=== PATIENT | female | born 1950 | race Caucasian/White ===

== ENCOUNTER → 2019-09-02 14:05 | Outpatient (CLI) | payer MEDICARE, MEDICAID, SELFPAY ==
--- NOTE | 2019-09-02 | DI.RAD.S_ITS ---
PROCEDURE: XR SHOULDER RT MIN 2V INDICATIONS: Unspecified injury of head, initial encounter TECHNIQUE: 3 views of the shoulder were acquired. COMPARISON: None. FINDINGS: Bones: No fractures or dislocations. No suspicious bony lesions. Visualized ribs appear intact. Soft tissues: No suspicious soft tissue calcifications. IMPRESSION: Mild to moderate osteoarthritis of the a.c. joint. Dictated by: Christiano Beltre M.D. on 09/02/2019 at 15:44 Approved by: Christiano Beltre M.D. on 09/02/2019 at 15:44
--- NOTE | 2019-09-02 | DI.RAD.S_ITS ---
PROCEDURE: XR FOREARM RT 2V INDICATIONS: Unspecified injury of head, initial encounter TECHNIQUE: 2 views of the forearm were acquired. COMPARISON: CR, XR HAND 3VW LT, 09/15/2016, 13:16. FINDINGS: Bones: No fractures or dislocations. No suspicious bony lesions. Severe triscaphe for CMC joint degeneration. Old ulnar styloid tip fracture versus a bony ossicle. Soft tissues: No suspicious soft tissue calcifications or masses. IMPRESSION: Osteoarthritic changes involving the triscaphe and first CMC joint; otherwise normal appearance of the left forearm. Dictated by: Arsalan PELAEZ Interpreted: Lauren Yung MD on 09/02/2019 at 15:05 Approved by: Lauren Yung M.D. on 09/02/2019 at 16:21
--- NOTE | 2019-09-02 | DI.RAD.S_ITS ---
PROCEDURE: XR CERVICAL SPINE 4V OR 5V INDICATIONS: Unspecified injury of head, initial encounter TECHNIQUE: 6 views of the cervical spine were acquired. COMPARISON: [facility], CR, CLAVICLE RIGHT 2 VIEWS, 03/21/2013, 16:02. [facility], CR, XR CERVICAL SPIN LAT FL EX 3VW, 04/15/2017, 14:34. FINDINGS: Bones: No fractures or dislocations to the T1 level. No suspicious bony lesions. ACDF at C4-C5 with interbody cage graft. There is mild to moderate diffuse cervical disc generation from C3-C4, and C5-C6, C6-C7 and C7-T1. Minimal grade 1 anterolisthesis of C7 on T1. Grade 1 retrolisthesis C3-C4. There is diffuse facet joint arthropathy. Soft tissues: Prevertebral soft tissues are normal in thickness. IMPRESSION: 1. Stable postsurgical and multilevel degenerative change which appears similar to prior exam dated 04/15/17. Dictated by: Arsalan Andujar [facility] Interpreted: Lauren Yung MD on 09/02/2019 at 16:00 Approved by: Lauren Yung M.D. on 09/02/2019 at 16:21
--- NOTE | 2019-09-02 | DI.RAD.S_ITS ---
PROCEDURE: XR FOREARM RT 2V INDICATIONS: Unspecified injury of head, initial encounter TECHNIQUE: 2 views of the forearm were acquired. COMPARISON: [facility], CR, XR WRIST 3VW RT, 09/15/2016, 13:09. [facility], CR, XR FOREARM LT 2V, 09/02/2019, 14:16. FINDINGS: Bones: Postsurgical changes redemonstrated status post screw plate fixation involving the 3rd metacarpal, carpus, and radius. The surgical hardware appears intact without new suspicious associated lucencies. No definite change in alignment. There is deformity of the carpus redemonstrated with fusion of the carpal bones which are not well visualized on the current study. Forearm otherwise appears intact. Soft tissues: No suspicious soft tissue calcifications. Impression: Stable postsurgical sequelae and bony alignment. Dictated by: Arsalan PELAEZ Interpreted: Lauren Yung MD on 09/02/2019 at 15:01 Approved by: Lauren Yung M.D. on 09/02/2019 at 16:21
--- NOTE | 2019-09-02 | DI.RAD.S_ITS ---
PROCEDURE: XR LUMBAR SPINE 2-3V INDICATIONS: Unspecified injury of head, initial encounter TECHNIQUE: 3 views of the lumbar spine were acquired. COMPARISON: [facility], , L-SPINE MINIMUM 4 VIEWS, 07/20/2013, 15:12. [facility], , L-SPINE 2-3 VIEWS, 05/10/2010, 15:05. FINDINGS: Bones: 5 [id number] vertebrae are present. There is abnormal scoliotic bony alignment with prominent convex leftward scoliosis centered at the upper LS spine and degenerative disc disease and facet osteoarthritis that is moderately severe over the thoracolumbar junction and entirety of the lumbosacral spine. This has been previously present, and associated with grade 1-2 anterolisthesis of L5 on S1, also currently seen and slightly worsened. Additionally, a chronic wedge type compression fracture involving T12 has been present, also mildly worsened from the comparison lateral view plain film imaging 07/20/13.. No vertebral body compression fractures. No suspicious bony lesions. Soft tissues: Overlying bowel gas pattern is normal. No suspicious soft tissue calcifications. IMPRESSION: There has been a mild degree of interval worsening of moderately severe to severe degenerative changes along the thoracolumbar junction and lumbosacral spine, best seen as increased Grade I-grade 2 anterolisthesis of L5 on S1 and interval worsening of degenerative changes bordering the chronic compression fracture previously present at T12. Multilevel spinal and foraminal stenosis likely was present in this patient with severe convex leftward scoliosis. Dictated by: Christiano Beltre M.D. on 09/02/2019 at 15:44 Approved by: Christiano Beltre M.D. on 09/02/2019 at 15:48
--- NOTE | 2019-09-02 | DI.CT.S_ITS ---
PROCEDURE: CT HEAD/BRAIN WO CON INDICATIONS: Unspecified injury of head, initial encounter TECHNIQUE: Noncontrast 4.5 mm thick angled axial sections acquired from the foramen magnum to the vertex, with coronal and sagittal reformats. For radiation dose reduction, the following was used: automated exposure control, adjustment of mA and/or kV according to patient size. COMPARISON: None. FINDINGS: Image quality: Excellent. CSF spaces: Basal cisterns are patent. No extra-axial fluid collections. The ventricles are symmetric in size and shape. Brain: No intracranial bleeds or masses. There is cerebral volume loss for age, with resultant ventricular and sulcal prominence. There are periventricular and deep white matter chronic small vessel ischemic changes. There is intracranial internal carotid artery atherosclerosis. Skull and face: Calvarium and visualized facial bones appear intact, without suspicious lesions. Sinuses: Visualized sinuses and mastoids are clear. IMPRESSION: No acute intracranial abnormality. Dictated by: Lauren Yung M.D. on 09/02/2019 at 14:47 Approved by: Lauren Yung M.D. on 09/02/2019 at 14:48
== END ==
PROVIDERS: PCP Internal Medicine; Visit Provider Internal Medicine
DX: S09.90XA Unspecified injury of head, initial encounter (principal); M79.601 Pain in right arm; M18.11 Unilateral primary osteoarthritis of first carpometacarpal joint, right hand; M19.031 Primary osteoarthritis, right wrist; M79.602 Pain in left arm; M25.511 Pain in right shoulder; M19.011 Primary osteoarthritis, right shoulder; M54.2 Cervicalgia; M47.812 Spondylosis without myelopathy or radiculopathy, cervical region; M54.5 Low back pain; M47.815 Spondylosis without myelopathy or radiculopathy, thoracolumbar region; M47.817 Spondylosis without myelopathy or radiculopathy, lumbosacral region; M54.6 Pain in thoracic spine; M26.611 Adhesions and ankylosis of right temporomandibular joint; X58.XXXA Exposure to other specified factors, initial encounter; M43.17 Spondylolisthesis, lumbosacral region; M41.86 Other forms of scoliosis, lumbar region; M48.54XS Collapsed vertebra, not elsewhere classified, thoracic region, sequela of fracture; M48.00 Spinal stenosis, site unspecified; Z98.1 Arthrodesis status
CPT/HCPCS: 70450; 72050; 72100; 73030; 73090

== ENCOUNTER → 2019-09-14 17:29 | Outpatient (CLI) | payer MEDICARE, MEDICAID, SELFPAY | PROVIDERS: Family Provider Internal Medicine; PCP Internal Medicine; Visit Provider Internal Medicine | DX: M25.511 Pain in right shoulder (principal); M48.02 Spinal stenosis, cervical region ==

== ENCOUNTER → 2019-09-15 20:11 | Outpatient (CLI) | payer MEDICARE, MEDICAID, SELFPAY ==
--- NOTE | 2019-09-15 | DI.MRI.S_ITS ---
PROCEDURE: MR CERVICAL SPINE WO CON INDICATIONS: SPINAL STENOSIS, CERVICAL REGION, CERVICALGIA TECHNIQUE: Noncontrast sagittal T1 spin echo and T2 fast spin echo, sagittal STIR, foraminal oblique sagittal T2 fast spin echo, and axial gradient echo or T2 fast spin echo through the cervical spine. COMPARISON: [facility], MR, MR CERVICAL SPINE WO CON, 04/03/2017, 15:20. [facility], MR, C-SPINE WITHOUT CONTRAST, 12/13/2012, 12:22. FINDINGS: Image quality: Excellent. Alignment and Curvature: ACDF at C4-C5 is again noted. Again noted is degenerative anterolisthesis of C7 on T1, measuring 4 mm. There is trace degenerative retrolisthesis of C5 on C6. There is trace degenerative retrolisthesis of C3 on C4. Mild degenerative anterolisthesis of C2 on C3 measures approximately 3 mm. Bone Marrow: Marrow demonstrates normal overall signal. Spinal Cord: Visualized spinal cord has normal size and signal. No cerebellar tonsillar herniation. Paraspinous Soft Tissues: No paravertebral masses. Prevertebral soft tissues are normal in thickness. C2-C3: No canal stenosis. Mild to moderate bilateral foraminal stenosis. C3-C4: No canal stenosis. Bilateral uncovertebral joint hypertrophy and facet hypertrophy. Moderate to severe right foraminal narrowing and moderate left foraminal narrowing with flattening deformity on the bilateral C4 nerve roots. C4-C5: No canal stenosis. Moderate bilateral foraminal stenosis. C5-C6: Posterior osteophyte. Mild canal stenosis. Bilateral uncovertebral joint hypertrophy and facet hypertrophy. Moderate to severe bilateral foraminal narrowing with flattening deformity on the bilateral C6 nerve roots. C6-C7: Posterior disc plus osteophyte. Mild canal stenosis. Moderate to severe right foraminal narrowing and severe left foraminal narrowing with flattening deformity on the bilateral C7 nerve roots. C7-T1: Mild degenerative anterolisthesis of C7 on T1. No canal stenosis. Moderate bilateral foraminal narrowing with flattening deformity on the bilateral C8 nerve roots. IMPRESSION: 1. Remote ACDF at C4-C5. 2. Mild canal stenosis at C5-C6 and C6-C7. 3. Multilevel uncovertebral joint hypertrophy and facet hypertrophy. 4. Multilevel foraminal narrowing as described above. Dictated by: Jaison Christian M.D. on 09/16/2019 at 14:32 Approved by: Jaison Christian M.D. on 09/16/2019 at 14:46
--- NOTE | 2019-09-15 | DI.MRI.S_ITS ---
PROCEDURE: MR SHOULDER RT WO CON INDICATIONS: pain in right shoulder, TECHNIQUE: Noncontrast oblique coronal T2 fast spin echo with fat saturation, oblique sagittal T1 spin echo and T2 fast spin echo with fat saturation, axial T1 spin echo and T2 fast spin echo with fat saturation through the shoulder. COMPARISON: [facility], CR, XR SHOULDER RT MIN 2V, 09/02/2019, 14:16. FINDINGS: Image quality: Excellent. Rotator cuff: There is tendinosis and moderate grade articular and bursal surface partial-thickness tear involving distal supraspinatus and infraspinatus at their insertion on the humeral head extending to musculotendinous junction. The distal subscapularis tendinosis and moderate intrasubstance partial-thickness tear is also seen. Sagittal images demonstrate moderate supraspinatus muscle atrophy. Bones and bursae: No bone marrow contusions or fractures. Moderate acromioclavicular joint or glenohumeral joint osteoarthritic changes are seen. Small amount of joint fluid and subacromial subdeltoid bursal fluid is seen, no gross loose body. Capsule and soft tissues: In the absence of intra-articular contrast, there is suggestion of superior labral tear extending from 11 to 1:00 position. There is also anterior inferior labral tear extending from 5 to 6:00 position. The glenohumeral ligaments appear intact. Tendinosis and low to moderate grade partial-thickness tear involving proximal intra-articular portion of long head of biceps tendon is seen. The rotator interval appears normal, without fibrosis. The coracohumeral ligament is normal in thickness. IMPRESSION: 1. Tendinosis and moderate grade articular and bursal surface partial-thickness tear involving distal supraspinatus and infraspinatus at their insertion on humeral head extending to musculotendinous junction. Distal subscapularis tendinosis and moderate grade intrasubstance partial-thickness tear. Moderate supraspinatus muscle atrophy. 2. Moderate acromioclavicular joint and glenohumeral joint osteoarthritis. 3. Suggestion of superior labral tear at the 11 to 1:00 position an anterior inferior labral tear 5 to 6:00 position. Tendinosis and low to moderate grade partial-thickness tear involving proximal intra-articular portion of long head biceps tendon. Dictated by: Buster Grider M.D. on 09/16/2019 at 11:35 Approved by: Buster Grider M.D. on 09/16/2019 at 11:57
== END ==
PROVIDERS: Family Provider Internal Medicine; PCP Internal Medicine; Visit Provider Internal Medicine
DX: M25.511 Pain in right shoulder (principal); M75.111 Incomplete rotator cuff tear or rupture of right shoulder, not specified as traumatic; M19.011 Primary osteoarthritis, right shoulder; M48.02 Spinal stenosis, cervical region; M54.2 Cervicalgia; Z98.1 Arthrodesis status
CPT/HCPCS: 72141; 73221

== ENCOUNTER → 2020-02-24 14:45 | Outpatient (CLI) | payer MEDICARE, MEDICAID, SELFPAY ==
--- NOTE | 2020-02-24 14:57 | DI.MRI.S_ITS ---
PROCEDURE: MR LUMBAR SPINE WO CON INDICATIONS: LOW BACK AND BILATERAL HIP PAIN TECHNIQUE: Noncontrast sagittal T1 spin echo and T2 fast echo, sagittal STIR, axial T1 and T2 fast spin echo through the lumbar spine. In cases with scoliosis, additional coronal T2 fast spin echo may be performed. COMPARISON: [facility], CR, XR LUMBAR SPINE 2-3V, 02/24/2020, 16:14. MR, MR LUMBAR SPINE WO CON, 12/16/2016, 13:29. FINDINGS: Image quality: Degraded by patient motion artifact there Alignment and Curvature: There is mild L1-L2 and L2-L3 retrolisthesis. There is mild L5-S1 anterolisthesis. There is approximately 42? of convex left lumbar spine scoliosis. Bone Marrow: Negative for changes noted adjacent the T12-L1 and L1-L2 discs.. No acute vertebral body compression fractures. Spinal Cord: Conus medullaris terminates at the L2 level. Visualized cord demonstrates normal signal and size. Paraspinous Soft Tissues: No paravertebral masses. T12-L1: Loss of the signal and height. Mild, diffuse disc bulge. Mild bilateral facet hypertrophy. Mild narrowing of the central canal. Mild bilateral neural foraminal narrowing. No neural compression. L1-L2: Loss of disc signal and height. Mild, diffuse disc bulge. Mild bilateral facet hypertrophy. Mild narrowing of the central canal. Mild bilateral neural foraminal narrowing. No neural compression. L2-L3: Loss of disc signal. Mild, diffuse disc bulge. Mild bilateral facet hypertrophy. Moderate ligamentum flavum hypertrophy. No central stenosis. Moderate right and mild left neural foraminal narrowing. No neural compression. L3-L4: Loss of the signal. Minimal, diffuse disc bulge. Mild to moderate bilateral facet hypertrophy. No central stenosis. No neural foraminal narrowing. No neural compression. L4-L5: Loss of the signal. Mild, diffuse disc bulge. Moderate bilateral facet hypertrophy. Mild narrowing of the central canal. Mild left neural foraminal narrowing. No neural compression. L5-S1: Loss of disc signal. Minimal, diffuse disc bulge. Severe bilateral facet hypertrophy. Mild narrowing of the central canal. Mild bilateral neural foraminal narrowing. No neural compression. 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 IMPRESSION: 1. Severe convex left scoliosis. 2. L1-L2, L2-L3 and L5-S1 grade 1 degenerative spondylolisthesis. 3. Multilevel degenerative disc disease. 4. Multilevel facet arthropathy. 5. No significant central canal narrowing. 6. No significant neural foraminal narrowing. 7. No neural compression. Dictated by: Jeanine Pedersen MD, PhD on 02/24/2020 at 17:48 Approved by: Jeanine Pedersen MD, PhD on 02/24/2020 at 17:54
--- NOTE | 2020-02-24 14:57 | DI.MRI.S_ITS ---
PROCEDURE: MR CERVICAL SPINE WO CON INDICATIONS: NECK PAIN. CERVICAL SPONDYLOSIS,SCOLIOSIS TECHNIQUE: Noncontrast sagittal T1 spin echo and T2 fast spin echo, sagittal STIR, foraminal oblique sagittal T2 fast spin echo, and axial gradient echo or T2 fast spin echo through the cervical spine. COMPARISON: , MR, MR CERVICAL SPINE WO CON, 04/03/2017, 15:20. [facility], CR, XR CERVICAL SPINE 4V OR 5V, 09/02/2019, 14:16. [facility], CR, XR CERVICAL SPINE 2V OR 3V, 02/24/2020, 16:14. FINDINGS: Image quality: Excellent. Alignment and Curvature: There is there is mild, approximately 3 mm of C7-T1 degenerative anterolisthesis. There is trace, approximately 1-2 mm of C3-C4 degenerative retrolisthesis. Bones: Postsurgical changes compatible C4-C5 ACDF. Mild reactive endplate changes noted at the C3-C4, C5-C6, C6-C7 and C7-T1 disc. Spinal Cord: Visualized spinal cord has normal size and signal. No cerebellar tonsillar herniation. Paraspinous Soft Tissues: No paravertebral masses. Prevertebral soft tissues are normal in thickness. C2-C3: Loss of disc signal. Minimal, diffuse disc bulge. No central stenosis. No neural foraminal narrowing. No neural compression C3-C4: Loss of disc signal and height. Mild, diffuse disc bulge. Mild bilateral facet hypertrophy. No central stenosis. Moderate bilateral neural foraminal narrowing. No neural compression. C4-C5: Status post fusion. No central stenosis. Mild left facet hypertrophy. Moderate left neural foraminal narrowing. No neural compression. C5-C6: Loss of disc signal and height. Mild, diffuse disc bulge. Mild narrowing of the central canal. Mild bilateral facet hypertrophy. Moderate right and severe left neural foraminal narrowing with compression of the exiting left C6 nerve root. C6-C7: Loss of disc signal and height. Mild, diffuse disc bulge. Mild central canal. Mild left facet hypertrophy. Mild left neural foraminal narrowing. No neural compression. C7-T1: Loss of disc signal and height. Minimal, diffuse disc bulge. Moderate bilateral facet hypertrophy. No central stenosis. Mild bilateral neural foraminal narrowing. No neural compression. IMPRESSION: 1. Status post C4-C5 ACDF. 2. Multilevel degenerative disease 3. Multilevel facet arthropathy. 4. No significant central canal narrowing identified. Severe left C5-C6 neural foraminal narrowing with compression left C6 nerve root. Dictated by: Jeanine Pedersen MD, PhD on 02/24/2020 at 17:16 Approved by: Jeanine Pedersen MD, PhD on 02/24/2020 at 17:31
--- NOTE | 2020-02-24 14:59 | DI.RAD.S_ITS ---
PROCEDURE: XR CERVICAL SPINE 2V OR 3V INDICATIONS: NECK PAIN, BACK PAIN, CERVICAL SPONDYLOSIS,SCOLIOSIS TECHNIQUE: 2 view(s) of the cervical spine were acquired. COMPARISON: [facility], CR, XR CERVICAL SPINE 4V OR 5V, 09/02/2019, 14:16. [facility], CR, CLAVICLE RIGHT 2 VIEWS, 03/21/2013, 16:02. FINDINGS: Bones: No fractures or dislocations to the T1 level. The lateral masses of C1 appear intact. No suspicious bony lesions. Note is made of prior C4-C5 anterior fusion plate with no evidence of device loosening or disruption. Previously present facet osteoarthritis and degenerative disc disease has not appreciably worsened from 09/02/19 and there is grade 1 anterolisthesis of C7 on T1. This was previously present. Soft tissues: No soft tissue abnormality seen. IMPRESSION: The degenerative disc disease and facet osteoarthritis along the cervical and cervical thoracic junction allows slight degrees of ligamentous laxity that is best seen at C7-T1. At this level grade 1 anterolisthesis is present but stable on both flexion and extension imaging when compared to the prior study from August of last year. Prior anterior fusion plating C4-C5 without operative complication. Dictated by: Christiano Beltre M.D. on 02/24/2020 at 17:23 Approved by: Christiano Beltre M.D. on 02/24/2020 at 17:26
--- NOTE | 2020-02-24 14:59 | DI.RAD.S_ITS ---
PROCEDURE: XR THORACIC SPINE 2V INDICATIONS: NECK PAIN, BACK PAIN, CERVICAL SPONDYLOSIS,SCOLIOSIS TECHNIQUE: 2 views of the thoracic spine were acquired. COMPARISON: [facility], THORACIC SPINE 3 VIEWS, 08/13/2015, 16:21. [facility], THORACIC SPINE MINIMUM 4 VIEWS, 07/20/2013, 15:12. FINDINGS: Bones: 12 vertebral segments are present. Mild degenerative disc disease is noted along the thoracic spine to the T12 level where a significant compression fracture involving the anterior, middle and posterior thirds of the vertebral body is present. The quality of visualization is somewhat limited due to osteopenia, and this has been previously present in 2012 and 2014 but appears to have mildly worsened both at T12 and L1 Soft tissues: No paravertebral stripe thickening. IMPRESSION: Worsening osteoporotic compression fractures at T12 and L1, but poorly visualized due to osteopenia, reactive sclerosis and overlap of degenerative disc disease. CT scanning would be very helpful in more accurately assessing this area if clinically warranted. No subluxation is seen on the flexion and extension views. Dictated by: Christiano Beltre M.D. on 02/24/2020 at 17:32 Approved by: Christiano Beltre M.D. on 02/24/2020 at 17:37 :
--- NOTE | 2020-02-24 14:59 | DI.RAD.S_ITS ---
PROCEDURE: XR LUMBAR SPINE 2-3V INDICATIONS: NECK PAIN, BACK PAIN, CERVICAL SPONDYLOSIS,SCOLIOSIS TECHNIQUE: 2 views of the lumbar spine were acquired. COMPARISON: [facility], , XR LUMBAR SPINE 2-3V, 09/02/2019, 14:16. [facility], , L-SPINE MINIMUM 4 VIEWS, 07/20/2013, 15:12. FINDINGS: Bones: 5 [id number] vertebrae are present. There is mildly abnormal bony alignment with grade 1 anterolisthesis of L5 on S1 that appears stable despite flexion and extension of the patient over the course of the examination to acquire the 2 lateral images. This was previously present also on plain film imaging from 09/02/19 and 07/20/13. This appears secondary to ligamentous laxity from chronic disc height reduction and facet osteoarthritis from L3 inferiorly. It is most prominent at the facet joints, at L4-5 and L5-S1. No vertebral body compression fractures. No suspicious bony lesions. Soft tissues: Overlying bowel gas pattern is normal. No suspicious soft tissue calcifications. IMPRESSION: No trauma found. Fixed anterolisthesis grade 1 of L5 on S1 is present and has been previously present on prior plain film imaging from 2012 and 2018. A definite compression fracture is not identified from L2 inferiorly but quality of visualization of T12 and L1 reduces quality of this embolization of possible old compression fracture in that area. Degenerative disc disease is prominent at that level, with reactive sclerosis, and prior mild anterior wedging has been present in that area on the 2012 and 2018 studies. The anterior wedging and vertebral height reduction likely has worsened at T12, in my opinion. Dictated by: Christiano Beltre M.D. on 02/24/2020 at 17:26 Approved by: Christiano Beltre M.D. on 02/24/2020 at 17:32
== END ==
PROVIDERS: Family Provider Internal Medicine; PCP Internal Medicine; Referring Provider Neurological Surgery; Visit Provider Neurological Surgery
DX: M50.31 Other cervical disc degeneration, high cervical region (principal); M48.02 Spinal stenosis, cervical region; M47.812 Spondylosis without myelopathy or radiculopathy, cervical region; M51.16 Intervertebral disc disorders with radiculopathy, lumbar region; M47.26 Other spondylosis with radiculopathy, lumbar region; M47.27 Other spondylosis with radiculopathy, lumbosacral region; M51.34 Other intervertebral disc degeneration, thoracic region; M80.88XS Other osteoporosis with current pathological fracture, vertebra(e), sequela; M25.552 Pain in left hip; M25.551 Pain in right hip; M41.86 Other forms of scoliosis, lumbar region; Z98.1 Arthrodesis status
CPT/HCPCS: 72040; 72072; 72100; 72141; 72148

== ENCOUNTER → 2020-04-18 14:38 | Outpatient (CLI) | payer MEDICARE, MEDICAID, SELFPAY ==
[2020-04-18 15:57] LABS: Add Manual Diff / Slide Review NO; Basophils Absolute Auto 0 /uL (0-100); Basophils Percent Auto 1.1 % (0-2); Eosinophils Absolute Auto 100 /uL (0-450); Eosinophils Percent Auto 2.4 % (2-4); Hematocrit 33.7 % (36-46); Hemoglobin 11.5 g/dL (12.0-16.0); Lymphocytes Absolute Auto 1000 /uL (1100-4500); Lymphocytes Percent Auto 22.8 % (25-40); Mean Corpuscular Hemoglobin 32.2 PG (26-34); Mean Corpuscular Volume 94.7 fL (80-100); Monocytes Absolute Auto 400 /uL (0-900); Monocytes Percent Auto 8.5 % (3-14); Neutrophils Absolute Auto 2800 /uL (1500-7000); Neutrophils Percent Auto 65.2 % (50-75); Platelet Count 173 X10^3/uL (150-400); Red Blood Cell Count 3.56 X10^6/uL (4.0-5.2); Red Cell Distribution Width 13.3 % (11.6-14.8); White Blood Cell Count 4.3 X10^3/uL (4.5-11.0)
[2020-04-18 16:50] LABS: Alanine Aminotransferase 22 IU/L (<35); Albumin 3.9 g/dL (3.5-5.0); Albumin Globulin Ratio 1.5 (1.0-2.8); Alkaline Phosphatase 215 U/L (38-126); Aspartate Aminotransferase 35 IU/L (14-36); BUN Creatinine Ratio 32.7 (6-22); Bilirubin Total 0.3 mg/dL (0.2-1.3); Blood Urea Nitrogen 18 mg/dL (7-17); Calcium 9.6 mg/dL (8.4-10.2); Carbon Dioxide 26 mmol/L (22-32); Chloride 102 mmol/L (98-107); Cholesterol 141 mg/dL (140-199); Estimated Glomerular Filt Rate > 60.0 mL/min (>60); Globulin 2.6 g/dL (1.7-4.1); Glucose 109 mg/dL (80-110); HDL Cholesterol 54 mg/dL (40-60); HEMOLYSIS < 15 (0-50); LDL Cholesterol Calculated 64 mg/dL (<100); Potassium 4.1 mmol/L (3.4-5.1); Sodium 136 mmol/L (137-145); Total Protein 6.5 g/dL (6.3-8.2); Triglycerides 117 mg/dL (35-150)
[2020-04-18 16:56] LABS: NT-proBNP (BNP-Adult 18+) 139 pg/mL (<125)
[2020-04-18 17:17] LABS: TSH w/ Reflex to FT4 1.51 uIU/mL (0.47-4.68)
== END ==
PROVIDERS: Family Provider Internal Medicine; PCP Internal Medicine; Referring Provider Physician Assistant; Visit Provider Physician Assistant
DX: R00.2 Palpitations (principal); E03.9 Hypothyroidism, unspecified; E78.2 Mixed hyperlipidemia; I10 Essential (primary) hypertension
CPT/HCPCS: 36415; 80053; 80061; 83735; 83880; 84443; 85025

== ENCOUNTER → 2020-04-20 14:04 | Outpatient (CLI) | payer MEDICARE, MEDICAID, SELFPAY ==
--- NOTE | 2020-04-20 | DI.ECHO.S_ITS ---
[facility]---------+ [facility] +---------+ : : [address] : [address] : : : : [id number] : : : : Phone: [phone]---------+ Echocardiogram Report + + :Name: ALY NICHOLS Study Date: 04/20/2020 Height: 60 in : :[facility] Weight: 130 lb : : Gender: Female BSA: 1.6 m2 : :: 1950 Age: 69 yrs BP: 140/70 mmHg: :Reason For Study: PALPITATIONS : : Performed By: Tl Kaur : :Referring: MARI RAI : + + Interpretation Summary 1) Normal left ventricular thickness, size, wall motion, and systolic function (EF 60-65%). 2) Normal right ventricular size and function. 3) There is mild to moderate aortic regurgitation. 4) Compared to the Echo done `5, no significant change. Procedure: A two-dimensional transthoracic echocardiogram with color flow and Doppler was performed. The study quality was technically good. Comparison is made with the echocardiogram of 04/12/15. The patient was in normal sinus rhythm during the exam. The patient had occasional PACs during the exam. Left Ventricle: The left ventricle is normal in size. There is normal left ventricular wall thickness. The ejection fraction is estimated to be 60-65%. There are no focal wall motion abnormalities. Right Ventricle: The right ventricle is normal in size and function. Atria: The left atrium is moderately dilated. The right atrium is mildly dilated. The interatrial septum is intact with no evidence for an atrial septal defect. Mitral Valve: The mitral valve is normal in structure and function. The mitral valve leaflets are slightly calcified. There is trace mitral regurgitation. Aortic Valve: The aortic valve is trileaflet. The aortic valve is slightly calcified. The aortic valve opens well. There is no aortic valve stenosis. There is mild to moderate aortic regurgitation. Tricuspid Valve: The tricuspid valve is normal in structure and function. There is trace tricuspid regurgitation. The right ventricular systolic pressure is estimated to be at least 25 mmHg based on an estimated right atrial pressure of 3 mm Hg. Pulmonic Valve: The pulmonic valve is normal in structure and function. There is trace pulmonic regurgitation. Great Vessels: The aortic root is normal size. The dimensions of the ascending aorta are normal. The pulmonary artery is normal size. The IVC is of normal diameter and collapses greater than 50% with a sniff. This suggests a low right atrial pressure of 3 mm Hg. Pericardium/ Pleura There is no pericardial effusion. There is no pleural effusion. MMode/2D Measurements & Calculations LVIDd: 5.2 cm LVOT diam: 2.0 cm LVIDs: 3.1 cm Ao root diam: 2.8 cm FS: 41.7 % asc Aorta Diam: 3.4 cm EPSS: 0.58 cm Ao Arch Diam (Prox Trans): 2.9 cm IVSd: 0.78 cm LVPWd: 0.82 cm LV cortés. diameter/BSA (cm/m^2): 3.4 LV sys. diameter/BSA (cm/m^2): 2.0 LA dimension: 3.9 cm RA long axis: 5.0 cm LA A2 area: 20.6 cm2 RA area: 17.9 cm2 LA A4 area: 23.4 cm2 RA vol: 54.6 ml LA length (vol): 6.0 cm RA : 35.1 ml/m2 LA vol: 67.5 ml IVC diam: 1.6 cm LA vol index: 43.4 ml/m2 Doppler Measurements & Calculations Ao V2 max: 202.8 cm/sec LVOT Max Sina: 115.6 cm/sec Ao V2 mean: 149.1 cm/sec LV V1 max P.3 mmHg Ao max P.5 mmHg LV V1 VTI: 28.5 cm Ao mean P.6 mmHg KODI(I,D): 2.0 cm2 Ao V2 VTI: 46.8 cm KODI(V,D): 1.8 cm2 sev ratio: 0.61 KODI indexed to BSA (cm^2/m^2): 1.3 AI P1/2t: 672.4 msec AI dec slope: 195.7 cm/sec2 MV E max sina: 118.5 cm/sec TR max sina: 233.4 cm/sec MV A max sina: 59.8 cm/sec TR max P.8 mmHg MV E/A: 2.0 PA V2 max: 84.6 cm/sec Med Peak E' Sina: 3.9 cm/sec PA V2 mean: 63.1 cm/sec E/E' med: 30.4 PA mean P.7 mmHg Lat Peak E' Sina: 8.1 cm/sec PA pr(Accel): 19.1 mmHg E/E' lat: 14.6 E/e' average: 22.5 MV dec time: 0.21 sec ENRRIQUE): 91.7 ml Reading Physician:04:08 PM
== END ==
PROVIDERS: Family Provider Internal Medicine; PCP Internal Medicine; Referring Provider Physician Assistant; Visit Provider Physician Assistant
DX: I35.1 Nonrheumatic aortic (valve) insufficiency (principal); R00.2 Palpitations; I10 Essential (primary) hypertension
CPT/HCPCS: 93306

== ENCOUNTER → 2020-04-23 15:48 | Outpatient (CLI) | payer MEDICARE, MEDICAID, SELFPAY ==
[2020-04-23 16:06] LABS: Add Manual Diff / Slide Review NO; Basophils Absolute Auto 0 /uL (0-100); Eosinophils Absolute Auto 100 /uL (0-450); Eosinophils Percent Auto 3.4 % (2-4); Hemoglobin 11.7 g/dL (12.0-16.0); Lymphocytes Absolute Auto 1100 /uL (1100-4500); Lymphocytes Percent Auto 26.7 % (25-40); Mean Corpuscular HGB Conc 33.4 % (30-36); Mean Corpuscular Hemoglobin 31.6 PG (26-34); Mean Corpuscular Volume 94.7 fL (80-100); Monocytes Absolute Auto 300 /uL (0-900); Monocytes Percent Auto 7.8 % (3-14); Neutrophils Absolute Auto 2400 /uL (1500-7000); Neutrophils Percent Auto 61.1 % (50-75); Platelet Count 180 X10^3/uL (150-400); Red Blood Cell Count 3.69 X10^6/uL (4.0-5.2); Red Cell Distribution Width 13.5 % (11.6-14.8)
[2020-04-23 16:33] LABS: Alanine Aminotransferase 21 IU/L (<35); Albumin 4.1 g/dL (3.5-5.0); Albumin Globulin Ratio 1.5 (1.0-2.8); Alkaline Phosphatase 194 U/L (38-126); Aspartate Aminotransferase 38 IU/L (14-36); BUN Creatinine Ratio 32.1 (6-22); Bilirubin Total 0.4 mg/dL (0.2-1.3); Bilirubin Unconjugated 0.2 mg/dL (0.0-1.1); Blood Urea Nitrogen 17 mg/dL (7-17); Calcium 9.5 mg/dL (8.4-10.2); Carbon Dioxide 28 mmol/L (22-32); Chloride 104 mmol/L (98-107); Estimated Glomerular Filt Rate > 60.0 mL/min (>60); Gamma Glutamyl Transpeptidase 78 U/L (12-43); Globulin 2.8 g/dL (1.7-4.1); Glucose 119 mg/dL (80-110); HEMOLYSIS < 15 (0-50); Potassium 3.8 mmol/L (3.4-5.1); Sodium 138 mmol/L (137-145); Total Protein 6.9 g/dL (6.3-8.2)
== END ==
PROVIDERS: Family Provider Internal Medicine; PCP Internal Medicine; Referring Provider Internal Medicine; Visit Provider Internal Medicine
DX: R74.8 Abnormal levels of other serum enzymes (principal); G89.4 Chronic pain syndrome
CPT/HCPCS: 36415; 80053; 80076; 82977; 85025

== ENCOUNTER → 2020-07-13 12:41 | Outpatient (CLI) | payer MEDICARE, MEDICAID, SELFPAY ==
--- NOTE | 2020-07-13 | DI.RAD.S_ITS ---
PROCEDURE: XR SACRUM COCCYX MIN 2V INDICATIONS: Spondylosis without myelopathy or radiculopathy, lumbar tony TECHNIQUE: 3 views of the sacrum and coccyx acquired. COMPARISON: [facility], MR, LUMBAR SPINE W/O CONTRAST, 06/16/2014, 12:27. [facility], CR, SACRUM-COCCYX MIN 2 VIEWS, 05/10/2010, 15:12. FINDINGS: Bones: No fractures or dislocations. No suspicious bony lesions. Mild symmetric SI and hip joint narrowing with periarticular osteophytosis. Grade 1 spondylolisthesis L5-S1 and there is lower lumbar spine degenerative disc and facet disease. Soft tissues: A large amount of stool is seen throughout the included colon. No suspicious soft tissue densities. IMPRESSION: 1. Symmetric hip and SI joint degeneration. 2. Grade 1 spondylolisthesis again seen at the L5-S1 level and there is lower lumbar spine degenerate disc and facet disease. Dictated by: Arsalan PELAEZ Interpreted: Christian Doty MD on 07/13/2020 at 15:27 Approved by: Christian Doty M.D. on 07/13/2020 at 16:41
--- NOTE | 2020-07-13 | DI.RAD.S_ITS ---
PROCEDURE: XR THORACIC SPINE 2V INDICATIONS: Spondylosis without myelopathy or radiculopathy, lumbar tony TECHNIQUE: 3 views of the thoracic spine were acquired. COMPARISON: [facility], MR, MR LUMBAR SPINE WO CON, 02/24/2020, 15:42. [facility], CR, XR LUMBAR SPINE 2-3V, 02/24/2020, 16:14. [facility], CR, XR LUMBAR SPINE 2-3V, 07/13/2020, 12:54. [facility], CR, XR THORACIC SPINE 3VW, 07/18/2016, 16:03. [facility], CR, XR THORACIC SPINE 2V, 02/24/2020, 16:14. FINDINGS: Bones: Examination is limited secondary to diffuse osteopenia, dextroscoliosis and kyphosis. Within these limits, compression fractures at the T12 and L1 level appear to be similar to prior examination dated 02/24/2020. As before there is multilevel disc degeneration throughout the thoracolumbar spine. Cervical spine fixation hardware present incompletely visualized. Soft tissues: No paravertebral stripe thickening. IMPRESSION: 1. Exam limited by dextroscoliosis, osteopenia and kyphosis which demonstrate similar appearance of T12 and L1 compression fractures. If warranted, CT or MRI could be performed for further evaluation. 2. Multilevel spondylosis. Dictated by: Arsalan PELAEZ Interpreted: Christian Doty MD on 07/13/2020 at 14:41 Approved by: Christian Doty M.D. on 07/13/2020 at 15:06
--- NOTE | 2020-07-13 | DI.RAD.S_ITS ---
PROCEDURE: XR LUMBAR SPINE 2-3V INDICATIONS: Spondylosis without myelopathy or radiculopathy, lumbar tony TECHNIQUE: 3 views of the lumbar spine were acquired. COMPARISON: [facility], , XR LUMBAR SPINE 2-3V, 02/24/2020, 16:14. FINDINGS: Bones: 5 [id number] vertebrae are present. Mild levoscoliosis centered at the mid lumbar level. No significant interval change in appearance of T12 and mild L1 compression fracture. Grade 1 retrolisthesis L2-L3 and grade 1 spondylolisthesis L5-S1 redemonstrated. Multilevel disc degeneration, most notably and severe at the L1-L2 level. Moderate L4-L5 and L5-S1 facet joint arthropathy. No vertebral body compression fractures. No suspicious bony lesions. Bones are osteopenic. Soft tissues: Overlying bowel gas pattern is normal. No suspicious soft tissue calcifications. IMPRESSION: 1. No significant change in T12 and mild L1 compression fractures and no new lumbar compression fracture seen. 2. Multilevel spondylosis similar to prior examination. Dictated by: Arsalan PELAEZ Interpreted: Christian Doty MD on 07/13/2020 at 14:47 Approved by: Christian Doty M.D. on 07/13/2020 at 15:05
== END ==
PROVIDERS: Family Provider Internal Medicine; PCP Internal Medicine; Referring Provider Internal Medicine; Visit Provider Internal Medicine
DX: M47.814 Spondylosis without myelopathy or radiculopathy, thoracic region (principal); M47.816 Spondylosis without myelopathy or radiculopathy, lumbar region; M48.55XS Collapsed vertebra, not elsewhere classified, thoracolumbar region, sequela of fracture; M85.88 Other specified disorders of bone density and structure, other site; M41.84 Other forms of scoliosis, thoracic region; M46.1 Sacroiliitis, not elsewhere classified; M16.0 Bilateral primary osteoarthritis of hip; M43.17 Spondylolisthesis, lumbosacral region
CPT/HCPCS: 72070; 72100; 72220

== ENCOUNTER 2020-07-31 11:30 | Emergency (ER) | payer MEDICARE, MEDICAID, SELFPAY ==
[2020-07-31] VITALS (16 sets, daily range): BP systolic 102–127; BP diastolic 50–59; PULSE 54–78; RESP 16–20; TEMP 36.4; O2SAT 96–100; BMI 24.6
[2020-07-31 12:45] LABS: Add Manual Diff / Slide Review NO; Basophils Absolute Auto 0 /uL (0-100); Basophils Percent Auto 0.3 % (0-2); Eosinophils Absolute Auto 0 /uL (0-450); Eosinophils Percent Auto 0.4 % (2-4); Hematocrit 36.3 % (36-46); Hemoglobin 12.1 g/dL (12.0-16.0); Lymphocytes Absolute Auto 600 /uL (1100-4500); Mean Corpuscular HGB Conc 33.2 % (30-36); Mean Corpuscular Hemoglobin 31.9 PG (26-34); Monocytes Absolute Auto 400 /uL (0-900); Monocytes Percent Auto 5.2 % (3-14); Neutrophils Absolute Auto 6600 /uL (1500-7000); Neutrophils Percent Auto 86.1 % (50-75); Platelet Count 241 X10^3/uL (150-400); Red Blood Cell Count 3.79 X10^6/uL (4.0-5.2); Red Cell Distribution Width 13.3 % (11.6-14.8); White Blood Cell Count 7.7 X10^3/uL (4.5-11.0)
[2020-07-31 12:46] LABS: INR 1.2 (0.9-1.3); Prothrombin Time 14.4 SECONDS (10.1-12.7)
[2020-07-31 12:49] LABS: PTT Partial Thromboplastin Tim 39 SECONDS (26.4-36.2)
[2020-07-31 12:59] LABS: Alanine Aminotransferase 25 IU/L (<35); Albumin 3.9 g/dL (3.5-5.0); Albumin Globulin Ratio 1.1 (1.0-2.8); Alkaline Phosphatase 232 U/L (38-126); Aspartate Aminotransferase 47 IU/L (14-36); BUN Creatinine Ratio 75.6 (6-22); Bilirubin Total 0.5 mg/dL (0.2-1.3); Blood Urea Nitrogen 34 mg/dL (7-17); Calcium 9.4 mg/dL (8.4-10.2); Carbon Dioxide 24 mmol/L (22-32); Chloride 106 mmol/L (98-107); Estimated Glomerular Filt Rate > 60.0 mL/min (>60); Globulin 3.5 g/dL (1.7-4.1); Glucose 109 mg/dL (80-110); HEMOLYSIS < 15 (0-50); Lipase 19 U/L (23-300); Sodium 139 mmol/L (137-145); Total Protein 7.4 g/dL (6.3-8.2)
[2020-07-31 13:05] LABS: COVID19 -Nasal RAPID Negative (Negative)
[2020-07-31 13:07] LABS: Potassium 2.7 mmol/L (3.4-5.1)
[2020-07-31 13:11] LABS: Procalcitonin < 0.05 ng/mL (<0.5)
[2020-07-31] MEDS: SODIUM CHLORIDE 0.9% 1,000 ML 1000 ML IV (13:14)
[2020-07-31] MEDS: ONDANSETRON 4 MG/2 ML INJ IV (13:15)
[2020-07-31] MEDS: PANTOPRAZOLE 40 MG VIAL IV (13:15)
[2020-07-31 13:25] LABS: Creatine Kinase 296 U/L (30-135)
[2020-07-31 13:37] LABS: Troponin I < 0.012 ng/mL (0.01-0.034)
--- NOTE | 2020-07-31 13:40 | DI.RAD.S_ITS ---
PROCEDURE: XR CHEST 2V INDICATIONS: aspiration liquid and food 2 days ago TECHNIQUE: 2 views of the chest were acquired. COMPARISON: None. FINDINGS: Surgical changes and devices: None. Lungs and pleura: Lungs are clear. No pleural effusions or pneumothorax. Mediastinum: Mediastinal contours are normal. Heart size is normal. Bones and chest wall: No suspicious bony abnormalities. Soft tissues appear unremarkable. IMPRESSION: No acute cardiopulmonary process demonstrated radiographically. Dictated by: Chin Villafana M.D. on 07/31/2020 at 14:14 Approved by: Chin Villafana M.D. on 07/31/2020 at 14:14
[2020-07-31 13:54] LABS: CKMB % Relative Index 2.1 % (1.5-5.0); Creatine Kinase MB 6.31 ng/mL (<2.37)
[2020-07-31 13:55] LABS: Magnesium 2.1 mg/dL (1.6-2.3)
[2020-07-31] MEDS: POTASSIUM CHLORIDE 20 MEQ/15 ML UDC 40 MEQ PO (14:33)
[2020-07-31] MEDS: POTASSIUM CHLORIDE 40 MEQ in SODIUM CHLORIDE 0.9% 500 ML 130 ML IV (14:35)
--- NOTE | 2020-07-31 14:37 | ED_ITS ---
HPI - SOB/Dyspnea <Alejandro TRINIDAD Zapata - Last Filed: 07/31/20 20:49> General Chief Complaint: Shortness of Breath/Dyspnea Stated Complaint: thinks she aspirated a cookie down her lung Time Seen by Provider: 07/31/20 12:24 Source: patient Mode of arrival: Wheelchair Limitations: no limitations History of Present Illness HPI Narrative: This is a 69-year-old female, nonsmoker, who has medical history significant for psoriatic arthritis, generalized weakness, back pain, osteoporosis presents to ED with her caregiver Dalton with chief complain of difficulty, breathing and increased generalized weakness. Patient reports 2 days ago she was having cocoa and tea with a couple of cookies and it went down to the lungs. Patient reports she coughed but was not able it up and since then she has not taken her Ensure for meal supplements due to bad dentition and also had nausea and vomiting even after the small amount of liquid. Reports feeling dehydrated with increased generalized weakness. Two days ago patient had difficulty walking and rested on her walker with bent forward position until EMS responded to her emergency call and to assist her back to bed which took for about 30 minutes and has increased arthritis pain in her back and legs. Patient denies fall at that time. Patient reports subjective fever. Patient denies abdominal pain, chest pain, urinary symptoms but it appeared to be concentrated this morning. Caregiver reports patient's emesis appears to be small amount clear foamy mucus. Patient is not currently on blood thinner. PCP Dr. Rogers and has an appointment tomorrow. Related Data Home Medications Medication Instructions Recorded Confirmed carisoprodol 350 mg PO BID #0 03/12/11 albuterol sulfate [ProAir 90 mcg IH PRN PRN #0 05/14/17 RespiClick] duloxetine 60 mg PO QDAY #0 05/14/17 fluticasone propion-salmeterol 1 puff INH BID #0 05/14/17 [Advair Diskus] ustekinumab [Stelara] SQ #0 05/14/17 clonazepam 07/31/20 oxycodone 07/31/20 Allergies Allergy/AdvReac Type Severity Reaction Status Date / Time dexamethasone [DEXAMETHASONE] Allergy Severe blood clots Verified 07/31/20 11:44 aspirin Allergy Unknown Verified 07/31/20 11:44 cyclobenzaprine Allergy Unknown Verified 07/31/20 11:44 iodine Allergy Unknown Verified 07/31/20 11:44 pregabalin Allergy Unknown Verified 07/31/20 11:44 rofecoxib Allergy Unknown Verified 07/31/20 11:44 Review of Systems <TRINIDAD Spaulding - Last Filed: 07/31/20 20:49> Review of Systems Narrative: General: Denies (+) fever, chills, (+) fatigue, malaise, sweats. HEENT: Denies sinus pain, ear pain, (+) anterior sore throat, difficulty swallowing, dizziness. Respiratory: Denies (+) dyspnea, cough, wheezing, hemoptysis, sputum. Cardiovascular: Denies chest pain, palpitations, orthopnea, edema. Gastrointestinal: Denies (+) nausea, (+) vomiting, abdominal pain, diarrhea, constipation, melena. : Denies dysuria, frequency, incontinence, hematuria, urinary retention. Musculoskeletal: See HPI Skin: Denies rash, skin lesions, or other. Neurologic: Denies weakness, headache, numbness, change in speech, confusion, seizures, incoordination. Psychiatric: No concerning psychosocial issues. 12-point review of systems is negative except for those stated above. Patient History <TRINIDAD Spaulding - Last Filed: 07/31/20 20:49> Medical History Back pain (Acute) Generalized weakness (Acute) Heart murmur (Acute) Osteoporosis (Acute) Psoriatic arthritis (Acute) Surgical History H/O hand surgery (Acute) H/O neck surgery (Acute) History of ankle surgery (Acute) History of appendectomy (Acute) Social History Smoking Status: Never smoker Smoking Status: Never smoker alcohol intake frequency: other Substance Use Type: does not use Exam <TRINIDAD Spaulding - Last Filed: 07/31/20 20:49> Narrative Exam Narrative: GEN: Alert, oriented x 3, thin and frail appearing, and in no acute distress. Head: Normal cephalic, atraumatic. No scalp or temporal tenderness, palpable mass or rash. EYES: Pupils are equal, round, and reactive to light and accommodation. Extr aocular muscles are intact bilaterally. There is no subconjunctival hemorrhage, exudate and sclera non-icteric. ENT: Left auditory canal semi occluded with cerumen. Right auditory canal clear, tympanic membranes clear. Hearing grossly intact. Nose without bleeding, purulent discharge or deviation. Facial sinuses nontender to palpate. Mucous membrane moist, no mucosal lesion. Throat without erythema, tonsillar hypertrophy or exudate. Uvula in midline, airway patent. Neck: Trachea in midline. No JVD, non-tender without lymphadenopathy. No masses or thyroid megaly. Supple, non-tender and no meningeal signs. CARDIAC: Normal regular rate and rhythm without murmurs, gallops, or rubs. No chest wall tenderness. No peripheral edema, cyanosis or pallor. Capillary refill is less than 2 seconds. RESPIRATORY: Lungs are clear to auscultate bilaterally. No cough, wheezes, rales, or rhonchi. No stridor, respiratory distress, increase work of breathing, or accessary muscle used. ABD: Abdomen soft, nontender and non-distended. No guarding or rebound tenderness to palpate. Bowel sounds are normal in all 4 quadrants. There is no palpable masses or organomegaly. EXT: Full painless ROM of all extremities with no loss of sensation, strength, effusion or edema. SKIN: Warm, dry, normal color for patient. No erythema, lesions or rash over visible areas. BACK: Tender to palpate in thoracic spinous region but reports her baseline. No flank tenderness. NEUROLOGICAL: Alert and oriented to place, time and person. Sensation and motor function intact bilaterally. No facial droops, dysphasia. PSYCHIATRIC: Good judgement and reason, without hallucinations, abnormal affect or abnormal behaviors during the examination. Patient is not suicidal. Initial Vital Signs Initial Vital Signs: Vital Signs Temperature 97.5 F L 07/31/20 11:38 Pulse Rate 78 07/31/20 11:38 Respiratory Rate 16 07/31/20 11:38 Blood Pressure 126/59 L 07/31/20 11:38 Pulse Oximetry 96 07/31/20 11:38 <Vilma Uriostegui MD - Last Filed: 08/08/20 04:05> Initial Vital Signs Initial Vital Signs: Vital Signs Temperature 97.5 F L 07/31/20 11:38 Pulse Rate 78 07/31/20 11:38 Respiratory Rate 16 07/31/20 11:38 Blood Pressure 126/59 L 07/31/20 11:38 Pulse Oximetry 96 07/31/20 11:38 Scores <[facility] [place] - Last Filed: 07/31/20 20:49> GCS [place] coma scale eye opening: Spontaneous [place] coma scale verbal response: Orientated [place] coma scale motor response: Obey commands [place] coma scale total score: 15 qSOFA Altered Mental Status (GCS <15): No Respiratory rate greater than/equal to 22: No Systolic blood pressure less than or equal to 100: No qSOFA Total: 0 0-1 Not High Risk 1-3 High risk Course <[facility] Last Filed: 07/31/20 20:49> Orders Ordered: Discontinued Medications Clonazepam (Klonopin) 2 mg PO NOW ONE Stop: 07/31/20 17:24 Last Admin: 07/31/20 17:34 Dose: 2 mg Documented by: TORSTEN Sodium Chloride (Normal Saline 0.9%) 1,000 mls @ 1,000 mls/hr IV BOLUS ONE Stop: 07/31/20 13:31 Last Infusion: 07/31/20 14:26 Dose: 0 mls/hr Documented by: Admin: 07/31/20 13:14 Dose: 1,000 mls/hr Documented by: TORSTEN Potassium Chloride 40 meq/ (Sodium Chloride) 520 mls @ 130 mls/hr IV NOW ONE Stop: 07/31/20 17:38 Last Infusion: 07/31/20 18:46 Dose: 0 mls/hr Documented by: TORSTEN Cosigned by: BRENDA Admin: 07/31/20 14:35 Dose: 130 mls/hr Documented by: TORSTEN Cosigned by: BRENDA Morphine Sulfate (Morphine) 4 mg IV NOW ONE Stop: 07/31/20 17:25 Last Admin: 07/31/20 17:34 Dose: 4 mg Documented by: TORSTEN Ondansetron HCl (Zofran) 4 mg IV NOW ONE Stop: 07/31/20 13:00 Last Admin: 07/31/20 13:15 Dose: 4 mg Documented by: TORSTEN Pantoprazole Sodium (Protonix) 40 mg IV NOW ONE Stop: 07/31/20 13:00 Last Admin: 07/31/20 13:15 Dose: 40 mg Documented by: TORSTEN Potassium Chloride (Potassium Chloride) 40 meq PO NOW ONE Stop: 07/31/20 13:40 Last Admin: 07/31/20 14:33 Dose: 40 meq Documented by: TORSTEN Reevaluation(s) Reevaluation #1: The patient is able to tolerate liquid potassium without nausea and vomiting. Informed patient on low potassium level as 2.8 likely from decreased oral intake and nausea and vomiting which causing increased generalized weakness. We discussed about possible admission to the hospital palpitation requests to go home after receiving potassium infusion and p.o. toleration of liquid and medication stating wound follow-up with her primary care physician Dr. Rogers tomorrow. Time: 14:50 Vital Signs Vital signs: Vital Signs - 8 hr 07/31/20 13:00 07/31/20 13:30 07/31/20 14:07 Pulse Rate 61 54 L 61 Respiratory Rate Blood Pressure Pulse Oximetry 98 97 98 07/31/20 14:30 07/31/20 14:35 07/31/20 15:00 Pulse Rate 62 69 67 Respiratory Rate Blood Pressure 116/55 L 111/57 L Pulse Oximetry 100 99 99 07/31/20 15:30 07/31/20 16:00 07/31/20 16:30 Pulse Rate 67 74 64 Respiratory Rate Blood Pressure 127/50 L 107/52 L Pulse Oximetry 98 100 98 07/31/20 17:00 07/31/20 17:30 07/31/20 18:00 Pulse Rate 66 69 68 Respiratory Rate 20 Blood Pressure 116/56 L 106/53 L Pulse Oximetry 98 98 99 07/31/20 18:30 Pulse Rate 70 Respiratory Rate Blood Pressure 102/52 L Pulse Oximetry 99 <Vilma Uriostegui MD - Last Filed: 08/08/20 04:05> Orders Ordered: Discontinued Medications Clonazepam (Klonopin) 2 mg PO NOW ONE Stop: 07/31/20 17:24 Last Admin: 07/31/20 17:34 Dose: 2 mg Documented by: TORSTEN Sodium Chloride (Normal Saline 0.9%) 1,000 mls @ 1,000 mls/hr IV BOLUS ONE Stop: 07/31/20 13:31 Last Infusion: 07/31/20 14:26 Dose: 0 mls/hr Documented by: Admin: 07/31/20 13:14 Dose: 1,000 mls/hr Documented by: TORSTEN Potassium Chloride 40 meq/ (Sodium Chloride) 520 mls @ 130 mls/hr IV NOW ONE Stop: 07/31/20 17:38 Last Infusion: 07/31/20 18:46 Dose: 0 mls/hr Documented by: TORSTEN Cosigned by: BRENDA Admin: 07/31/20 14:35 Dose: 130 mls/hr Documented by: TORSTEN Cosigned by: BRENDA Morphine Sulfate (Morphine) 4 mg IV NOW ONE Stop: 07/31/20 17:25 Last Admin: 07/31/20 17:34 Dose: 4 mg Documented by: TORSTEN Ondansetron HCl (Zofran) 4 mg IV NOW ONE Stop: 07/31/20 13:00 Last Admin: 07/31/20 13:15 Dose: 4 mg Documented by: TORSTEN Pantoprazole Sodium (Protonix) 40 mg IV NOW ONE Stop: 07/31/20 13:00 Last Admin: 07/31/20 13:15 Dose: 40 mg Documented by: TORSTEN Potassium Chloride (Potassium Chloride) 40 meq PO NOW ONE Stop: 07/31/20 13:40 Last Admin: 07/31/20 14:33 Dose: 40 meq Documented by: TORSTEN Vital Signs Vital signs: Vital Signs - 8 hr 07/31/20 13:00 07/31/20 13:30 07/31/20 14:07 Pulse Rate 61 54 L 61 Respiratory Rate Blood Pressure Pulse Oximetry 98 97 98 07/31/20 14:30 07/31/20 14:35 07/31/20 15:00 Pulse Rate 62 69 67 Respiratory Rate Blood Pressure 116/55 L 111/57 L Pulse Oximetry 100 99 99 07/31/20 15:30 07/31/20 16:00 07/31/20 16:30 Pulse Rate 67 74 64 Respiratory Rate Blood Pressure 127/50 L 107/52 L Pulse Oximetry 98 100 98 07/31/20 17:00 07/31/20 17:30 07/31/20 18:00 Pulse Rate 66 69 68 Respiratory Rate 20 Blood Pressure 116/56 L 106/53 L Pulse Oximetry 98 98 99 07/31/20 18:30 Pulse Rate 70 Respiratory Rate Blood Pressure 102/52 L Pulse Oximetry 99 MDM - SOB/Dyspnea <JULES SpauldingP - Last Filed: 07/31/20 20:49> Differential Diagnosis Differential diagnosis: Likely other (Aspiration pneumonia, electrolytes imbalance, NSTEMI) Medical Records Attestation: I reviewed the patient's medical records. Lab Data Attestation: I reviewed the patient's lab results. Result diagrams: 07/31/20 12:20 07/31/20 12:20 Labs: Lab Results 07/31/20 07/31/20 07/31/20 Range/Units 12:20 12:20 12:20 WBC 7.7 (4.5-11.0) X10^3/uL RBC 3.79 L (4.0-5.2) X10^6/uL Hgb 12.1 (12.0-16.0) g/dL Hct 36.3 (36-46) % MCV 96.0 (80-100) fL MCH 31.9 (26-34) PG MCHC 33.2 (30-36) % RDW 13.3 (11.6-14.8) % Plt Count 241 (150-400) X10^3/uL Neut % (Auto) 86.1 H (50-75) % Lymph % (Auto) 8.0 L (25-40) % [place] % (Auto) 5.2 (3-14) % Eos % (Auto) 0.4 L (2-4) % Baso % (Auto) 0.3 (0-2) % Neut # (Auto) 6600 (9737-3787) /uL Lymph # (Auto) 600 L (2119-7919) /uL [place] # (Auto) 400 (0-900) /uL Eos # (Auto) 0 (0-450) /uL Baso # (Auto) 0 (0-100) /uL PT 14.4 H (10.1-12.7) SECONDS INR 1.2 (0.9-1.3) APTT 39 H (26.4-36.2) SECONDS Sodium (137-145) mmol/L Potassium (3.4-5.1) mmol/L Chloride (98-107) mmol/L Carbon Dioxide (22-32) mmol/L BUN (7-17) mg/dL Creatinine (0.52-1.04) mg/dL Estimated GFR (>60) mL/min BUN/Creatinine Ratio (6-22) Glucose (80-110) mg/dL Lactate (0.7-2.1) mmol/L Calcium (8.4-10.2) mg/dL Magnesium (1.6-2.3) mg/dL Total Bilirubin (0.2-1.3) mg/dL AST (14-36) IU/L ALT (<35) IU/L Alkaline Phosphatase (38-126) U/L Total Creatine Kinase (30-135) U/L CK-MB (CK-2) (<2.37) ng/mL CK-MB (CK-2) Rel Index (1.5-5.0) % Troponin I (0.01-0.034) ng/mL Total Protein (6.3-8.2) g/dL Albumin (3.5-5.0) g/dL Globulin (1.7-4.1) g/dL Albumin/Globulin Ratio (1.0-2.8) Lipase (23-300) U/L Procalcitonin < 0.05 (<0.5) ng/mL COVID-19 PCR (Negative) 07/31/20 07/31/20 07/31/20 Range/Units 12:20 12:20 12:20 WBC (4.5-11.0) X10^3/uL RBC (4.0-5.2) X10^6/uL Hgb (12.0-16.0) g/dL Hct (36-46) % MCV (80-100) fL MCH (26-34) PG MCHC (30-36) % RDW (11.6-14.8) % Plt Count (150-400) X10^3/uL Neut % (Auto) (50-75) % Lymph % (Auto) (25-40) % [place] % (Auto) (3-14) % Eos % (Auto) (2-4) % Baso % (Auto) (0-2) % Neut # (Auto) (2647-5506) /uL Lymph # (Auto) (7066-7539) /uL [place] # (Auto) (0-900) /uL Eos # (Auto) (0-450) /uL Baso # (Auto) (0-100) /uL PT (10.1-12.7) SECONDS INR (0.9-1.3) APTT (26.4-36.2) SECONDS Sodium 139 (137-145) mmol/L Potassium 2.7 L* (3.4-5.1) mmol/L Chloride 106 (98-107) mmol/L Carbon Dioxide 24 (22-32) mmol/L BUN 34 H (7-17) mg/dL Creatinine 0.45 L (0.52-1.04) mg/dL Estimated GFR > 60.0 (>60) mL/min BUN/Creatinine Ratio 75.6 H (6-22) Glucose 109 (80-110) mg/dL Lactate 1.0 (0.7-2.1) mmol/L Calcium 9.4 (8.4-10.2) mg/dL Magnesium (1.6-2.3) mg/dL Total Bilirubin 0.5 (0.2-1.3) mg/dL AST 47 H (14-36) IU/L ALT 25 (<35) IU/L Alkaline Phosphatase 232 H (38-126) U/L Total Creatine Kinase (30-135) U/L CK-MB (CK-2) (<2.37) ng/mL CK-MB (CK-2) Rel Index (1.5-5.0) % Troponin I (0.01-0.034) ng/mL Total Protein 7.4 (6.3-8.2) g/dL Albumin 3.9 (3.5-5.0) g/dL Globulin 3.5 (1.7-4.1) g/dL Albumin/Globulin Ratio 1.1 (1.0-2.8) Lipase 19 L (23-300) U/L Procalcitonin (<0.5) ng/mL COVID-19 PCR Negative (Negative) 07/31/20 07/31/20 Range/Units 13:07 13:07 WBC (4.5-11.0) X10^3/uL RBC (4.0-5.2) X10^6/uL Hgb (12.0-16.0) g/dL Hct (36-46) % MCV (80-100) fL MCH (26-34) PG MCHC (30-36) % RDW (11.6-14.8) % Plt Count (150-400) X10^3/uL Neut % (Auto) (50-75) % Lymph % (Auto) (25-40) % [place] % (Auto) (3-14) % Eos % (Auto) (2-4) % Baso % (Auto) (0-2) % Neut # (Auto) (5211-7380) /uL Lymph # (Auto) (3327-4166) /uL [place] # (Auto) (0-900) /uL Eos # (Auto) (0-450) /uL Baso # (Auto) (0-100) /uL PT (10.1-12.7) SECONDS INR (0.9-1.3) APTT (26.4-36.2) SECONDS Sodium (137-145) mmol/L Potassium (3.4-5.1) mmol/L Chloride (98-107) mmol/L Carbon Dioxide (22-32) mmol/L BUN (7-17) mg/dL Creatinine (0.52-1.04) mg/dL Estimated GFR (>60) mL/min BUN/Creatinine Ratio (6-22) Glucose (80-110) mg/dL Lactate (0.7-2.1) mmol/L Calcium (8.4-10.2) mg/dL Magnesium 2.1 (1.6-2.3) mg/dL Total Bilirubin (0.2-1.3) mg/dL AST (14-36) IU/L ALT (<35) IU/L Alkaline Phosphatase (38-126) U/L Total Creatine Kinase 296 H (30-135) U/L CK-MB (CK-2) 6.31 H (<2.37) ng/mL CK-MB (CK-2) Rel Index 2.1 (1.5-5.0) % Troponin I < 0.012 (0.01-0.034) ng/mL Total Protein (6.3-8.2) g/dL Albumin (3.5-5.0) g/dL Globulin (1.7-4.1) g/dL Albumin/Globulin Ratio (1.0-2.8) Lipase (23-300) U/L Procalcitonin (<0.5) ng/mL COVID-19 PCR (Negative) Imaging Data Chest x-ray: Radiologist's Impression: [address] [address] XRay Report Signed Patient: Jordana Reyes DMR#: [id number] : [id number]:[id number] Age/Sex: 69 / FDate of Service: 07/31/20 Loc: ED Accession Number: [id number] Procedure: XR chest 2V Ordering Provider: Alejandro Zapata PROCEDURE: XR CHEST 2V INDICATIONS: aspiration liquid and food 2 days ago TECHNIQUE: 2 views of the chest were acquired. COMPARISON: None. FINDINGS: Surgical changes and devices: None. Lungs and pleura: Lungs are clear. No pleural effusions or pneumothorax. Mediastinum: Mediastinal contours are normal. Heart size is normal. Bones and chest wall: No suspicious bony abnormalities. Soft tissues appear unremarkable. IMPRESSION: No acute cardiopulmonary process demonstrated radiographically. Dictated by: Chin Villafana M.D. on 07/31/2020 at 14:14 Approved by: Chin Villafana M.D. on 07/31/2020 at 14:14 ECG Data Attestation: I personally reviewed and interpreted this ECG as follows: Prior ECG tracings: available for review Interpretation: Sinus rhythm with occasional PVC with frequent supraventricular premature complexes rate at 74. Left dominant axis. HI interval 155, QRS duration 118, QT/QTC 460/487. Q waves in V5-6, I, aVL No acute ST changes. Changes from previous EKG in February 2011. MDM Narrative Medical decision making narrative: This is a 69 year female who has past medical history significant for arthritis, chronic pain, and generalized weakness presents to ED with chief complain of increasing generalized weakness, nausea and vomiting for 2 days with unable to tolerated PO intake due to sore throat after possible aspiration of liquid and pieces of cookies 2 days ago. There is no leukocytosis and WBC is 7.7. Normal lactate of 1.0 and procalcitonin <0.05. Negative for acute findings. Covid test was negative. P atient has hypokalemia of 2.7 which is likely from decreased p.o. intake and nausea and vomiting for last 2 days. There is indication for dehydration with elevated BUN of 34, BUN/creatinine ratio of 75.6. Patient's physical exam is consistent with dehydration with dried oral mucous membrane. Slightly elevated coag test of PT of 14.4 and a PTT of 39. Slightly elevated AST of 47 and alkaline phosphatase of 232. CPK is 296 and CK-MB of 6.31 with CK-MB relative index of 2.1 which is normal. Negative cardiac enzymes. Elevated CK likely from dehydration and the patient was bent over on her walker for about 30 mintues 2 days ago to avoid falling when she called EMS for assistance. Patient was hydrated with 500 mL of normal saline and additional 500 mL of normal saline mixed with KCL 40 mEq. Patient was able to talk large amount of oral liquid including water, juice, Pedialyte without nausea and vomiting in ED. patient also medicated with oral potassium chloride 40 mEq. Consider admitting patient overnight but she declined this stating would like to go home to her sybil. Patient states she has an appointment with Dr. Rogers tomorrow. Patient also medicated with small dose of analgesia and clonazepam as she takes days of patiently. Patient reports feeling much better with the treatment and she was able to ambulate to the bathroom with a walker and back to bed. Strict return precautions were discussed with patient and advised to call the Dr. Rogres's office early in the morning to lab recheck before the appointment time. Patient verbalized understanding in agreement with treatment plan. <Vilma Uriostegui MD - Last Filed: 08/08/20 04:05> Lab Data Labs: Lab Results 07/31/20 07/31/20 07/31/20 Range/Units 12:20 12:20 12:20 WBC 7.7 (4.5-11.0) X10^3/uL RBC 3.79 L (4.0-5.2) X10^6/uL Hgb 12.1 (12.0-16.0) g/dL Hct 36.3 (36-46) % MCV 96.0 (80-100) fL MCH 31.9 (26-34) PG MCHC 33.2 (30-36) % RDW 13.3 (11.6-14.8) % Plt Count 241 (150-400) X10^3/uL Neut % (Auto) 86.1 H (50-75) % Lymph % (Auto) 8.0 L (25-40) % [place] % (Auto) 5.2 (3-14) % Eos % (Auto) 0.4 L (2-4) % Baso % (Auto) 0.3 (0-2) % Neut # (Auto) 6600 (8831-6364) /uL Lymph # (Auto) 600 L (3901-4051) /uL [place] # (Auto) 400 (0-900) /uL Eos # (Auto) 0 (0-450) /uL Baso # (Auto) 0 (0-100) /uL PT 14.4 H (10.1-12.7) SECONDS INR 1.2 (0.9-1.3) APTT 39 H (26.4-36.2) SECONDS Sodium (137-145) mmol/L Potassium (3.4-5.1) mmol/L Chloride (98-107) mmol/L Carbon Dioxide (22-32) mmol/L BUN (7-17) mg/dL Creatinine (0.52-1.04) mg/dL Estimated GFR (>60) mL/min BUN/Creatinine Ratio (6-22) Glucose (80-110) mg/dL Lactate (0.7-2.1) mmol/L Calcium (8.4-10.2) mg/dL Magnesium (1.6-2.3) mg/dL Total Bilirubin (0.2-1.3) mg/dL AST (14-36) IU/L ALT (<35) IU/L Alkaline Phosphatase (38-126) U/L Total Creatine Kinase (30-135) U/L CK-MB (CK-2) (<2.37) ng/mL CK-MB (CK-2) Rel Index (1.5-5.0) % Troponin I (0.01-0.034) ng/mL Total Protein (6.3-8.2) g/dL Albumin (3.5-5.0) g/dL Globulin (1.7-4.1) g/dL Albumin/Globulin Ratio (1.0-2.8) Lipase (23-300) U/L Procalcitonin < 0.05 (<0.5) ng/mL COVID-19 PCR (Negative) 07/31/20 07/31/20 07/31/20 Range/Units 12:20 12:20 12:20 WBC (4.5-11.0) X10^3/uL RBC (4.0-5.2) X10^6/uL Hgb (12.0-16.0) g/dL Hct (36-46) % MCV (80-100) fL MCH (26-34) PG MCHC (30-36) % RDW (11.6-14.8) % Plt Count (150-400) X10^3/uL Neut % (Auto) (50-75) % Lymph % (Auto) (25-40) % [place] % (Auto) (3-14) % Eos % (Auto) (2-4) % Baso % (Auto) (0-2) % Neut # (Auto) (1881-0624) /uL Lymph # (Auto) (4405-9538) /uL [place] # (Auto) (0-900) /uL Eos # (Auto) (0-450) /uL Baso # (Auto) (0-100) /uL PT (10.1-12.7) SECONDS INR (0.9-1.3) APTT (26.4-36.2) SECONDS Sodium 139 (137-145) mmol/L Potassium 2.7 L* (3.4-5.1) mmol/L Chloride 106 (98-107) mmol/L Carbon Dioxide 24 (22-32) mmol/L BUN 34 H (7-17) mg/dL Creatinine 0.45 L (0.52-1.04) mg/dL Estimated GFR > 60.0 (>60) mL/min BUN/Creatinine Ratio 75.6 H (6-22) Glucose 109 (80-110) mg/dL Lactate 1.0 (0.7-2.1) mmol/L Calcium 9.4 (8.4-10.2) mg/dL Magnesium (1.6-2.3) mg/dL Total Bilirubin 0.5 (0.2-1.3) mg/dL AST 47 H (14-36) IU/L ALT 25 (<35) IU/L Alkaline Phosphatase 232 H (38-126) U/L Total Creatine Kinase (30-135) U/L CK-MB (CK-2) (<2.37) ng/mL CK-MB (CK-2) Rel Index (1.5-5.0) % Troponin I (0.01-0.034) ng/mL Total Protein 7.4 (6.3-8.2) g/dL Albumin 3.9 (3.5-5.0) g/dL Globulin 3.5 (1.7-4.1) g/dL Albumin/Globulin Ratio 1.1 (1.0-2.8) Lipase 19 L (23-300) U/L Procalcitonin (<0.5) ng/mL COVID-19 PCR Negative (Negative) 07/31/20 07/31/20 Range/Units 13:07 13:07 WBC (4.5-11.0) X10^3/uL RBC (4.0-5.2) X10^6/uL Hgb (12.0-16.0) g/dL Hct (36-46) % MCV (80-100) fL MCH (26-34) PG MCHC (30-36) % RDW (11.6-14.8) % Plt Count (150-400) X10^3/uL Neut % (Auto) (50-75) % Lymph % (Auto) (25-40) % [place] % (Auto) (3-14) % Eos % (Auto) (2-4) % Baso % (Auto) (0-2) % Neut # (Auto) (8379-5731) /uL Lymph # (Auto) (1001-7634) /uL [place] # (Auto) (0-900) /uL Eos # (Auto) (0-450) /uL Baso # (Auto) (0-100) /uL PT (10.1-12.7) SECONDS INR (0.9-1.3) APTT (26.4-36.2) SECONDS Sodium (137-145) mmol/L Potassium (3.4-5.1) mmol/L Chloride (98-107) mmol/L Carbon Dioxide (22-32) mmol/L BUN (7-17) mg/dL Creatinine (0.52-1.04) mg/dL Estimated GFR (>60) mL/min BUN/Creatinine Ratio (6-22) Glucose (80-110) mg/dL Lactate (0.7-2.1) mmol/L Calcium (8.4-10.2) mg/dL Magnesium 2.1 (1.6-2.3) mg/dL Total Bilirubin (0.2-1.3) mg/dL AST (14-36) IU/L ALT (<35) IU/L Alkaline Phosphatase (38-126) U/L Total Creatine Kinase 296 H (30-135) U/L CK-MB (CK-2) 6.31 H (<2.37) ng/mL CK-MB (CK-2) Rel Index 2.1 (1.5-5.0) % Troponin I < 0.012 (0.01-0.034) ng/mL Total Protein (6.3-8.2) g/dL Albumin (3.5-5.0) g/dL Globulin (1.7-4.1) g/dL Albumin/Globulin Ratio (1.0-2.8) Lipase (23-300) U/L Procalcitonin (<0.5) ng/mL COVID-19 PCR (Negative) Discharge Plan Departure Patient Disposition: Home Clinical Impression: Acute hypokalemia, Generalized weakness, Breath, shortness, Dehydration Discharge Date/Time: 07/31/20 19:30 Instructions: DI for Dehydration -- Adult, DI for Hypokalemia, DI for Shortness of Breath, DI for Muscle Weakness Activity Restrictions/Additional Instructions: You have been diagnosed with [hypokalemia and dehydration likely from decreased oral intake during last 2 days after you had choking incident. Generalized weakness is likely from hypokalemia. Chest x-ray is negative for acute findings. No increased in white count. No indication of sepsis. You were provided with IV fluid normal saline and potassium replacement while in ED. Your were able to tolerate large amount of liquids without nausea or vomiting in ED.]. What to do: *Take your medications as directed. *Follow up with your primary care provider tomorrow as scheduled. Please Call for in the morning for lab recheck before the appointment with Dr. Rogers. Let them know you were seen in the ED and that we asked you to be seen in follow up. *Return to ED if you have any new, worsening, or concerning symptoms, such as [increasing weakness, able to tolerate fluids, chest pain, breathing difficulty, abdominal pain, fever, or any acute concerns]. Prescriptions: No Action carisoprodol 350 MG tablet 350 mg PO BID Qty: 0 RF: 0 ustekinumab [Stelara] 90 mg/mL syringe SQ Qty: 0 RF: 0 fluticasone propion-salmeterol [Advair Diskus] 100 MCG/50 MCG blister with device 1 puff INH BID Qty: 0 RF: 0 duloxetine 30 MG capsule,delayed release(DR/EC) 60 mg PO QDAY Qty: 0 RF: 0 albuterol sulfate [ProAir RespiClick] 90 MCG aerosol powdr breath activated 90 mcg IH PRN PRNQty: 0 RF: 0 clonazepam 2 mg tablet RF: 0 oxycodone 15 mg tablet RF: 0 Referrals: Leonel Rogers MD [Primary Care Provider] - <Vilma Uriostegui MD - Last Filed: 08/08/20 04:05> Cosign ED Attending Cosignature Attestation: I was immediately available in the department for consultation throughout this patient's visit. I agree with documentation as above. Vilma Uriostegui MD
[2020-07-31] MEDS: MORPHINE 4 MG/ML INJ IV (17:34)
[2020-07-31] MEDS: clonazePAM 0.5 MG TABLET 2 MG PO (17:34)
== END 2020-07-31 19:30 | disposition home or self-care (01) ==
PROVIDERS: Emergency Provider Nurse Practitioner Family; Family Provider Internal Medicine; PCP Internal Medicine
DX: E87.6 Hypokalemia (principal); R53.1 Weakness; R06.02 Shortness of breath; E86.0 Dehydration; R11.2 Nausea with vomiting, unspecified
CPT/HCPCS: 36415; 71046; 80053; 82550; 82553; 83605; 83690; 83735; 84145; 84484; 85025; 85610; 85730; 87040; 87635; 93005; 96361; 96365; 96366; 96375; 99284; C9113; J2270; J2405; J3480

== ENCOUNTER → 2021-03-26 11:15 | Outpatient (CLI) | payer OTHER, MEDICAID, SELFPAY ==
--- NOTE | 2021-03-26 11:18 | DI.MRI.S_ITS ---
PROCEDURE: MR LUMBAR SPINE WO CON INDICATIONS: scoliosis, T12 and L1 fx follow up TECHNIQUE: Noncontrast sagittal T1 spin echo and T2 fast echo, sagittal STIR, axial T1 and T2 fast spin echo through the lumbar spine. In cases with scoliosis, additional coronal T2 fast spin echo may be performed. COMPARISON: [facility], CT, CT LUMBAR SPINE WO CON, 04/03/2017, 15:51. [facility], CR, XR LUMBAR SPINE MIN 4V, 03/26/2021, 11:45. [facility], MR, MR LUMBAR SPINE WO CON, 02/24/2020, 15:42. FINDINGS: Image quality: Excellent. Alignment and Curvature: Moderate convex left lumbar scoliosis noted. Mild retrolisthesis present at L1-2 with anterior listhesis at L5-S1. Bone Marrow: Degenerative endplate changes present at T12-L1 and L1-2. Spinal Cord: Conus medullaris terminates at the L1 level. Visualized cord demonstrates normal signal and size. Paraspinous Soft Tissues: No paravertebral masses. T12-L1: Moderate disc space narrowing and circumferential disc bulge results in mild central stenosis. Severe right and no left foraminal stenosis present. L1-L2: Severe disc space narrowing and circumferential disc bulge with hypertrophic facet joints present. No central stenosis. There is severe right and mild left foraminal stenosis. L2-L3: Mild disc space narrowing present with circumferential disc bulge. Moderate right and mild left foraminal stenosis present. L3-L4: Mild disc height loss without circumferential disc bulge present. No central stenosis. Mild right and mild left foraminal stenosis present. L4-L5: Moderate disc space narrowing present. No disc bulge. There are hypertrophic facet joints resulting in moderate left and no right foraminal stenosis. L5-S1: Moderate disc space narrowing. No central or foraminal stenosis present. IMPRESSION: 1. Multilevel degenerative disc disease and arthropathy resulting in varying degrees of foraminal stenosis as above including severe right foraminal stenosis at T12-L1 and L1-2 2. Degenerative grade 2 anterior spondylolisthesis at L5-S1 3. Lumbar levoscoliosis Dictated by: Kirit Cage M.D. on 03/26/2021 at 16:30 Approved by: Kirit Cage M.D. on 03/26/2021 at 16:43
--- NOTE | 2021-03-26 11:18 | DI.RAD.S_ITS ---
PROCEDURE: XR LUMBAR SPINE MIN 4V INDICATIONS: scoliosis, T12 and L1 fx TECHNIQUE: 4 views of the lumbar spine were acquired, including bilateral oblique views. COMPARISON: [facility], CR, XR LUMBAR SPINE 2-3V, 07/13/2020, 12:54. [facility], MR, MR LUMBAR SPINE WO CON, 03/26/2021, 11:27. FINDINGS: Bones: 5 nonrib-bearing vertebrae are present. There is normal bony alignment. No vertebral body compression fractures. Severe levoscoliosis measuring 45.3 degree with the apex at L2. There is grade 1 anterolisthesis of L5 on S1. Mild compression fracture of T11 and T12. There is generalized osteopenia. Severe degenerative disc disease is present at T12-L1, L1-L2, and moderate degenerative disease at [id number] facet arthropathy in lumbar spine at L 4-L5 and L5-S1. Soft tissues: Overlying bowel gas pattern is normal. No suspicious soft tissue calcifications. Vascular calcifications consistent with atherosclerosis. There is a moderate amount of stool in colon. Oblique images: No pars defects. IMPRESSION: 1. Severe levoscoliosis. 2. Mild chronic appearing compression fracture of T11 and T12. 3. Severe degenerative disc and facet disease in lumbar spine as described. 4. Osteopenia. Dictated by: Santi Driscoll M.D. on 03/26/2021 at 15:06 Approved by: Santi Driscoll M.D. on 03/26/2021 at 15:12
[2021-04-01 05:47] LABS: Alkaline Phosphatase 581 IU/L (48-121)
== END ==
PROVIDERS: Internal Medicine Rheumatology; Family Provider Internal Medicine; PCP Internal Medicine; Referring Provider Physical Medicine & Rehabilitation; Visit Provider Physical Medicine & Rehabilitation
DX: M41.86 Other forms of scoliosis, lumbar region (principal); S32.010A Wedge compression fracture of first lumbar vertebra, initial encounter for closed fracture; S22.080A Wedge compression fracture of T11-T12 vertebra, initial encounter for closed fracture; R74.8 Abnormal levels of other serum enzymes; M51.36 Other intervertebral disc degeneration, lumbar region; M47.816 Spondylosis without myelopathy or radiculopathy, lumbar region; M48.061 Spinal stenosis, lumbar region without neurogenic claudication; M43.16 Spondylolisthesis, lumbar region; M85.88 Other specified disorders of bone density and structure, other site
CPT/HCPCS: 36415; 72110; 72148; 84080

== ENCOUNTER 2021-04-06 09:27 | Emergency (ER) | payer OTHER, MEDICAID, SELFPAY ==
[2021-04-06 09:47] VITALS: BP 118/59; PULSE 65; RESP 19; TEMP 36.3; O2SAT 98; BMI 24.6
--- NOTE | 2021-04-06 10:25 | ED_ITS ---
HPI - Recheck/Abnormal Lab/Rx General Chief Complaint: Recheck/Abnormal Lab/Rx Stated Complaint: pain medications Time Seen by Provider: 04/06/21 10:24 Source: patient Mode of arrival: Family Vehicle Limitations: no limitations History of Present Illness HPI narrative: Female who suffers from chronic pain from multiple arthritis is including psoriatic arthritis, who states that she takes oxycodone, Soma, another opiate medication and she is wanting refills on all of them. She ran out 4 days ago. She says she fired her primary care provider who is trying to wean her off of the pain medications. She has been on these medications for 17 years and now she is out of her prescriptions. She is followed by rheumatology and sees Dr. Haile for pain management however he does not write prescriptions. Related Data Home Medications Medication Instructions Recorded Confirmed carisoprodol 350 mg tablet 350 mg PO BID #0 03/12/11 02/20/21 albuterol sulfate 90 mcg/actuation 90 mcg IH PRN PRN #0 05/14/17 02/20/21 breath activated powder inhaler (ProAir RespiClick) duloxetine 30 mg capsule,delayed 60 mg PO QDAY #0 05/14/17 02/20/21 release fluticasone 100 mcg-salmeterol 50 1 puff INH BID #0 05/14/17 02/20/21 mcg/dose blistr powdr for inhalation (Advair Diskus) ustekinumab 90 mg/mL subcutaneous SQ #0 05/14/17 02/20/21 syringe (Stelara) clonazepam 2 mg tablet 07/31/20 02/20/21 oxycodone 15 mg tablet 07/31/20 02/20/21 Previous Rx's Medication Instructions Recorded calcitonin (salmon) 200 1 spray INTRANASAL (ALT) DAILY 60 04/02/21 unit/actuation nasal spray Days #3.7 ml Allergies Allergy/AdvReac Type Severity Reaction Status Date / Time dexamethasone [DEXAMETHASONE] Allergy Severe blood clots Verified 04/06/21 09:47 aspirin Allergy Unknown Verified 04/06/21 09:47 cyclobenzaprine Allergy Unknown Verified 04/06/21 09:47 iodine Allergy Unknown Verified 04/06/21 09:47 pregabalin Allergy Unknown Verified 04/06/21 09:47 rofecoxib Allergy Unknown Verified 04/06/21 09:47 Review of Systems Review of Systems Narrative: GENERAL: Denies chills,fever HEENT: Denies throat pain RESPIRATORY: Denies dyspnea, cough, wheezing CARDIOVASCULAR: Denies chest pain, palpitations GASTROINTESTINAL: Denies nausea, vomiting MUSCULOSKELETAL: Chronic pain SKIN: No rash, no laceration, no pruritus NEUROLOGIC: Denies weakness, dizziness, headache, numbness 8 point review of systems is negative except for those stated above and HPI Patient History Medical History (Updated 04/06/21 @ 10:30 by Magdalena Logan DO) Back pain Compression fracture of L1 lumbar vertebra Dextroscoliosis Gait instability Generalized weakness Heart murmur Osteoporosis Psoriatic arthritis T12 compression fracture Surgical History H/O hand surgery H/O neck surgery History of ankle surgery History of appendectomy Social History Smoking Status: Never smoker Smoking Status: Never smoker alcohol intake frequency: 0-2 drinks per day Substance Use Type: does not use Exam Initial Vital Signs Initial Vital Signs: Vital Signs Temperature 97.4 F L 04/06/21 09:47 Pulse Rate 65 04/06/21 09:47 Respiratory Rate 19 04/06/21 09:47 Blood Pressure 118/59 L 04/06/21 09:47 Pulse Oximetry 98 04/06/21 09:47 GENERAL: Awake alert 70-year-old female sitting in wheelchair. Does not appear to be in any severe distress CARDIOVASCULAR: peripheral pulses in tact, cap refill <2 sec RESPIRATORY: No respiratory distress, speaks in full sentences without difficulty EXTREMITIES: Normal range of motion, no clubbing or edema. Neurovascularly intact NEUROLOGICAL: Cranial nerves II through XII grossly intact. SKIN: Warm, dry, no petechiae, no rashes or lesions. Course Orders Ordered: Discontinued Medications Oxycodone HCl (Oxycodone Er 10 Mg Tab) 20 mg PO NOW ONE Stop: 04/06/21 10:26 Last Admin: 04/06/21 10:33 Dose: 20 mg Documented by: LYNDA Vital Signs Vital signs: Vital Signs - 8 hr 04/06/21 09:47 Temperature 97.4 F L Pulse Rate 65 Respiratory Rate 19 Blood Pressure 118/59 L Pulse Oximetry 98 MDM - Recheck/Abnormal Lab/Rx MDM Narrative Medical decision making narrative: I have kindly explained to patient that she has chronic ongoing pain and she has for 17 years. Unfortunately she fired her primary care provider who writes her for all of her pain medications. She does not have anyone to replace the primary care provider for those his prescriptions. I am happy to give her 1 dose of pain medications in the emergency department to his help with her pain today but I will not be filling any of her prescriptions. She understands this. Discharge Plan Departure Patient Disposition: Home Clinical Impression: Chronic pain Qualifiers: Chronic pain type: chronic pain syndrome Qualified Code(s): G89.4 - Chronic pain syndrome Instructions: Managing Chronic Low Back Pain Activity Restrictions/Additional Instructions: *You have been diagnosed with chronic pain *What to do: You will need to find a provider to write for your chronic pain prescriptions. They will not be filled in this emergency department and unlikely to be filled in any other emergency department. Pain management would be a good referral however you likely need a primary care referral. *Continue to take medications as directed *Follow up with your primary care provider in 2-3 days *Return to ER if you should have any new, worsening or concerning symptoms Prescriptions: No Action carisoprodol 350 MG tablet 350 mg PO BID Qty: 0 RF: 0 ustekinumab [Stelara] 90 mg/mL syringe SQ Qty: 0 RF: 0 fluticasone propion-salmeterol [Advair Diskus] 100 MCG/50 MCG blister with device 1 puff INH BID Qty: 0 RF: 0 duloxetine 30 MG capsule,delayed release(DR/EC) 60 mg PO QDAY Qty: 0 RF: 0 albuterol sulfate [ProAir RespiClick] 90 MCG aerosol powdr breath activated 90 mcg IH PRN PRNQty: 0 RF: 0 calcitonin (salmon) 200 unit/actuation spray,non-aerosol 1 spray intranasal (ALT) DAILY 60 Days Qty: 3.7 RF: 1 clonazepam 2 mg tablet RF: 0 oxycodone 15 mg tablet RF: 0 Referrals: [facility] [Outside] Bruce Haile DO [Physician] - Leonel Rogers MD [Primary Care Provider] -
[2021-04-06] MEDS: OXYCODONE ER 10 MG TAB 20 MG PO (10:33)
== END 2021-04-06 10:37 | disposition home or self-care (01) ==
PROVIDERS: Emergency Provider Emergency Medicine; Family Provider Internal Medicine; PCP Internal Medicine
DX: G89.4 Chronic pain syndrome (principal)
CPT/HCPCS: 99283

== ENCOUNTER 2021-04-17 15:49 | Emergency (ER) | payer OTHER, MEDICAID, SELFPAY ==
[2021-04-17] VITALS (25 sets, daily range): BP systolic 83–161; BP diastolic 57–92; PULSE 73–148; RESP 13–24; TEMP 35.7; O2SAT 95–100; BMI 23.4
[2021-04-17 16:41] LABS: COVID19 -Nasal RAPID Negative (Negative)
[2021-04-17 17:27] LABS: Add Manual Diff / Slide Review NO; Basophils Absolute Auto 0 /uL (0-100); Basophils Percent Auto 0.3 % (0-2); Eosinophils Absolute Auto 0 /uL (0-450); Eosinophils Percent Auto 0.2 % (2-4); Hematocrit 45.5 % (36-46); Hemoglobin 15.5 g/dL (12.0-16.0); Lymphocytes Absolute Auto 900 /uL (1100-4500); Lymphocytes Percent Auto 11.1 % (25-40); Mean Corpuscular Hemoglobin 32.2 PG (26-34); Mean Corpuscular Volume 94.7 fL (80-100); Monocytes Absolute Auto 600 /uL (0-900); Monocytes Percent Auto 7.4 % (3-14); Neutrophils Absolute Auto 6900 /uL (1500-7000); Platelet Count 293 X10^3/uL (150-400); Red Cell Distribution Width 14.3 % (11.6-14.8); White Blood Cell Count 8.5 X10^3/uL (4.5-11.0)
[2021-04-17] MEDS: SODIUM CHLORIDE 0.9% 1,000 ML 1000 ML IV ×2 (17:37→20:04)
[2021-04-17 17:39] LABS: Alanine Aminotransferase 103 IU/L (<35); Albumin 4.5 g/dL (3.5-5.0); Albumin Globulin Ratio 1.3 (1.0-2.8); Alkaline Phosphatase 455 U/L (38-126); Aspartate Aminotransferase 81 IU/L (14-36); BUN Creatinine Ratio 50.9 (6-22); Bilirubin Total 0.7 mg/dL (0.2-1.3); Blood Urea Nitrogen 28 mg/dL (7-17); Calcium 9.7 mg/dL (8.4-10.2); Carbon Dioxide 17 mmol/L (22-32); Chloride 106 mmol/L (98-107); Estimated Glomerular Filt Rate > 60.0 mL/min (>60); Globulin 3.5 g/dL (1.7-4.1); Glucose 114 mg/dL (80-110); HEMOLYSIS < 15 (0-50); Lipase 115 U/L (23-300); Sodium 137 mmol/L (137-145)
--- NOTE | 2021-04-17 18:28 | ED.NAVMDI ---
HPI - Nausea/Vomiting/Diarrhea <Joaniegildardo Duarte, DO - Last Filed: 04/28/21 19:42> General Chief complaint: Nausea/Vomiting/Diarrhea Stated complaint: x6 days w/nausea Time Seen by Provider: 04/17/21 18:14 Source: patient and EMS Mode of arrival: EMS Limitations: physical limitation History of Present Illness HPI Narrative: This is a 70-year-old female comes emergency department with complaint of 6 days of diarrhea. Patient states she has had quite a bit of diarrhea regularly. Patient has had chills but no acute fevers. No chest pain or pressure. She has noted her heart rate is sometimes intermittently fast. She has had occasional shortness of breath when this occurs. She states she has had some lower abdominal pain bilaterally. Patient states she is having sometimes 20 episodes of bile like stool. She denies any urinary symptoms. She is not appreciate any melena, bright red blood for any other changes. She takes multiple medications. She has chronic back pain which she takes narcotics, psoriatic arthritis, T12, and compression fracture of L1 lumbar vertebrae. Patient has had prior appendectomy as well as other orthopedic surgery. She denies any recent hospitalizations. She came today concern for COVID as her caregiver tested positive today. She does note she has had a cough. Related Data Home Medications Medication Instructions Recorded Confirmed carisoprodol 350 mg tablet 350 mg PO TID #0 03/12/11 04/18/21 albuterol sulfate 90 mcg/actuation 90 mcg IH PRN PRN #0 05/14/17 04/17/21 breath activated powder inhaler (ProAir RespiClick) fluticasone 100 mcg-salmeterol 50 1 puff INH BID #0 05/14/17 04/17/21 mcg/dose blistr powdr for inhalation (Advair Diskus) oxycodone 15 mg tablet 15 mg PO Q6HR PRN 07/31/20 04/18/21 baclofen 10 mg tablet 10 mg PO TID 04/17/21 04/17/21 clonazepam 2 mg tablet 2 mg PO TID 04/17/21 04/17/21 duloxetine 30 mg capsule,delayed 60 mg PO BEDTIME 04/17/21 04/18/21 release gabapentin 300 mg capsule 600 mg PO BEDTIME 04/17/21 04/18/21 hydroxychloroquine 200 mg tablet 400 mg PO QAM 04/17/21 04/18/21 leflunomide 20 mg tablet 20 mg PO BEDTIME 04/17/21 04/18/21 levothyroxine 137 mcg tablet 137 mcg PO QAM 04/17/21 04/17/21 potassium chloride 10 mEq 10 meq PO QAM 04/17/21 04/18/21 tablet,extended release secukinumab 150 mg/mL subcutaneous 150 mg SUBCUT QWEEK 04/17/21 04/17/21 pen injector (Cosentyx Pen) tizanidine 4 mg tablet 4 mg PO TID PRN 04/17/21 04/17/21 topiramate 100 mg tablet 100 mg PO BID 04/17/21 04/17/21 cholecalciferol (vitamin D3) 1,250 1,250 mcg PO QWEEK 04/18/21 04/18/21 mcg (50,000 unit) capsule morphine 30 mg tablet,extended 30 mg PO TID 04/18/21 04/18/21 release zolpidem 5 mg tablet 5 mg PO BEDTIME 04/18/21 04/18/21 Previous Rx's Medication Instructions Recorded calcitonin (salmon) 200 1 spray INTRANASAL (ALT) DAILY 60 04/02/21 unit/actuation nasal spray Days #3.7 ml Allergies Allergy/AdvReac Type Severity Reaction Status Date / Time dexamethasone [DEXAMETHASONE] Allergy Severe blood clots Verified 04/17/21 21:22 aspirin Allergy Unknown Verified 04/17/21 21:22 cyclobenzaprine Allergy Unknown Verified 04/17/21 21:22 iodine Allergy Unknown Verified 04/17/21 21:22 pregabalin Allergy Unknown Verified 04/17/21 21:22 rofecoxib Allergy Unknown Verified 04/17/21 21:22 Review of Systems <Joanie Duarte DO - Last Filed: 04/28/21 19:42> Review of Systems ROS Unobtainable: All systems reviewed & are unremarkable except as noted in HPI and below Patient History <Joanie Duarte DO - Last Filed: 04/28/21 19:42> Medical History Back pain Compression fracture of L1 lumbar vertebra Dextroscoliosis Gait instability Generalized weakness Heart murmur Osteoporosis Psoriatic arthritis T12 compression fracture Surgical History H/O hand surgery H/O neck surgery History of ankle surgery History of appendectomy Social History Smoking Status: Never smoker Smoking Status: Never smoker alcohol intake frequency: 0-2 drinks per day Substance Use Type: does not use Exam <Joanie Duarte DO - Last Filed: 04/28/21 19:42> Narrative Exam Narrative: GENERAL: Alert and oriented x three, female in mild distress HEENT: Head normocephalic, atraumatic, EOMI, pupils reactive, face symmetric, moist mucous membranes NECK: Supple, full range of motion CARDIOVASCULAR: Regular rate and rhythm without murmurs, rubs or gallops. RESPIRATORY: Breath sounds equal bilaterally, no wheezes rales or rhonchi. ABDOMEN: Soft, mild generalized. Normoactive bowel sounds all 4 quadrants. No guarding or rebound, rigidity, no mass. Non-distended. : No CVA tenderness EXTREMITIES: Normal range of motion, no clubbing or edema. Neurovascularly intact NEUROLOGICAL: Cranial nerves II through XII grossly intact. Moving all extremities SKIN: Warm, dry, no petechiae, no rashes or lesions. Initial Vital Signs Initial Vital Signs: Vital Signs Temperature 96.3 F L 04/17/21 15:53 Pulse Rate 89 04/17/21 15:53 Respiratory Rate 16 04/17/21 15:53 Blood Pressure 111/64 04/17/21 15:53 Pulse Oximetry 98 04/17/21 15:53 <Vilma Uriostegui MD - Last Filed: 04/18/21 19:14> Initial Vital Signs Initial Vital Signs: Vital Signs Temperature 96.3 F L 04/17/21 15:53 Pulse Rate 89 04/17/21 15:53 Respiratory Rate 16 04/17/21 15:53 Blood Pressure 111/64 04/17/21 15:53 Pulse Oximetry 98 04/17/21 15:53 Course <Joanie Duarte DO - Last Filed: 04/28/21 19:42> Orders Ordered: Discontinued Medications Aspirin (Aspirin 81 Mg Chew Tab) 324 mg PO DAILY KRYSTEN Last Admin: 04/18/21 09:28 Dose: 324 mg Documented by: LYNDA Carisoprodol (Carisoprodol 350 Mg Tablet) 350 mg PO NOW ONE Stop: 04/18/21 02:47 Last Admin: 04/18/21 03:19 Dose: 350 mg Documented by: ROLAN Carisoprodol (Carisoprodol 350 Mg Tablet) 350 mg PO BID [facility] Last Admin: 04/18/21 19:42 Dose: 350 mg Documented by: Admin: 04/18/21 09:30 Dose: 350 mg Documented by: LYNDA Clonazepam (Clonazepam 0.5 Mg Tablet) 2 mg PO NOW ONE Stop: 04/17/21 21:25 Last Admin: 04/17/21 21:29 Dose: 2 mg Documented by: REED Clonazepam (Clonazepam 0.5 Mg Tablet) 2 mg PO TID [facility] Last Admin: 04/18/21 19:42 Dose: 2 mg Documented by: Admin: 04/18/21 16:34 Dose: 2 mg Documented by: Admin: 04/18/21 13:00 Dose: 2 mg Documented by: TARAS Diltiazem HCl (Diltiazem 5 Mg/Ml Sdv) 10 mg IV NOW ONE Stop: 04/17/21 19:58 Last Admin: 04/17/21 20:09 Dose: 10 mg Documented by: REED Diltiazem HCl (Diltiazem 5 Mg/Ml Sdv) 10 mg IV NOW ONE Stop: 04/17/21 21:58 Last Admin: 04/17/21 22:14 Dose: 10 mg Documented by: REED Diltiazem HCl (Diltiazem 30 Mg Tablet) 30 mg PO QID [facility] Last Admin: 04/18/21 14:53 Dose: 30 mg Documented by: TARAS Diltiazem HCl (Diltiazem 30 Mg Tablet) 30 mg PO Q6H [facility] Diltiazem HCl (Diltiazem 30 Mg Tablet) 30 mg PO NOW ONE Stop: 04/18/21 19:57 Last Admin: 04/18/21 20:00 Dose: 30 mg Documented by: TARAS Heparin Sodium (Porcine) (Heparin 5,000 Unit/Ml Vial) 4,000 unit IV NOW ONE Stop: 04/17/21 21:43 Last Admin: 04/17/21 22:03 Dose: 4,000 unit Documented by: REED Hydromorphone HCl (Hydromorphone 1 Mg Inj) 1 mg IV NOW ONE Stop: 04/18/21 12:56 Last Admin: 04/18/21 12:59 Dose: 1 mg Documented by: TARAS Hydroxychloroquine Sulfate (Hydroxychloroquine 200 Mg Tablet) 200 mg PO BID KRYSTEN Last Admin: 04/18/21 19:42 Dose: 200 mg Documented by: Admin: 04/18/21 09:24 Dose: 200 mg Documented by: LYNDA Sodium Chloride (Normal Saline 0.9%) 1,000 mls @ 1,000 mls/hr IV BOLUS ONE Stop: 04/17/21 17:36 Last Infusion: 04/17/21 20:08 Dose: 0 mls/hr Documented by: Infusion: 04/17/21 19:58 Dose: 0 mls/hr Documented by: Admin: 04/17/21 17:37 Dose: 1,000 mls/hr Documented by: LYNDA Sodium Chloride (Normal Saline 0.9%) 1,000 mls @ 1,000 mls/hr IV BOLUS ONE Stop: 04/17/21 20:14 Last Infusion: 04/17/21 21:26 Dose: 0 mls/hr Documented by: Admin: 04/17/21 20:04 Dose: 1,000 mls/hr Documented by: REED Diltiazem HCl 125 mg/ Sodium (Chloride) 125 mls @ 5 mls/hr IV TITRATE KRYSTEN; Protocol Last Titration: 04/18/21 14:42 Dose: 0 mg/hr, 0 mls/hr Documented by: Titration: 04/18/21 04:00 Dose: 0 mg/hr, 0 mls/hr Documented by: Titration: 04/18/21 02:06 Dose: 2.5 mg/hr, 2.5 mls/hr Documented by: Titration: 04/18/21 00:58 Dose: 5 mg/hr, 5 mls/hr Documented by: Titration: 04/17/21 22:26 Dose: 15 mg/hr, 15 mls/hr Documented by: Titration: 04/17/21 21:12 Dose: 10 mg/hr, 10 mls/hr Documented by: Admin: 04/17/21 20:13 Dose: 5 mg/hr, 5 mls/hr Documented by: REED Piperacillin Sod/Tazobactam (Sod 4.5 gm/ Sodium Chloride) 100 mls @ 200 mls/hr IV NOW ONE Stop: 04/17/21 20:26 Last Infusion: 04/17/21 21:33 Dose: 0 mls/hr Documented by: Admin: 04/17/21 20:53 Dose: 200 mls/hr Documented by: REED Heparin Sodium/Dextrose (Heparin Drip) 25,000 unit in 500 mls @ 13.063 mls/hr IV CONT KRYSTEN; Protocol Last Infusion: 04/18/21 20:06 Dose: 0 units/kg/hr, 0 mls/hr Documented by: Infusion: 04/18/21 19:41 Dose: 9.19 units/kg/hr, 10 mls/hr Documented by: Infusion: 04/18/21 19:25 Dose: 10 units/kg/hr, 10.886 mls/hr Documented by: Infusion: 04/18/21 05:05 Dose: 10.2 units/kg/hr, 11.1 mls/hr Documented by: Infusion: 04/18/21 04:35 Dose: 0 units/kg/hr, 0 mls/hr Documented by: Admin: 04/17/21 22:04 Dose: 12 units/kg/hr, 13.063 mls/hr Documented by: REED Piperacillin Sod/Tazobactam (Sod 4.5 gm/ Sodium Chloride) 100 mls @ 25 mls/hr IV Q8H KRYSTEN Last Infusion: 04/18/21 18:44 Dose: 0 mls/hr Documented by: Admin: 04/18/21 14:32 Dose: 25 mls/hr Documented by: Infusion: 04/18/21 10:33 Dose: 0 mls/hr Documented by: Admin: 04/18/21 06:28 Dose: 25 mls/hr Documented by: REED Leflunomide (Leflunomide 20 Mg Tablet) 20 mg PO DAILY [facility] Last Admin: 04/18/21 09:24 Dose: 20 mg Documented by: LYNDA Levothyroxine Sodium (Levothyroxine 137 Mcg Tablet) 137 mcg PO DAILY@0600 [facility] Last Admin: 04/18/21 09:22 Dose: 137 mcg Documented by: LYNDA Metoprolol Succinate (Metoprolol Er 50 Mg Tablet) 50 mg PO NOW ONE Stop: 04/18/21 08:01 Last Admin: 04/18/21 09:23 Dose: 50 mg Documented by: LYNDA Metoprolol Tartrate (Metoprolol Ir 25 Mg Tablet) 50 mg PO NOW ONE Stop: 04/17/21 23:49 Last Admin: 04/17/21 23:55 Dose: 50 mg Documented by: REED Morphine Sulfate (Morphine 4 Mg/Ml Inj) 4 mg IV NOW ONE Stop: 04/17/21 23:35 Last Admin: 04/17/21 23:37 Dose: 4 mg Documented by: REED Morphine Sulfate (Morphine Er 30 Mg Tablet) 30 mg PO Q8HR [facility] Last Admin: 04/18/21 14:53 Dose: 30 mg Documented by: TARAS Oxycodone HCl (Oxycodone Ir 5 Mg Tablet) 15 mg PO NOW ONE Stop: 04/17/21 18:42 Last Admin: 04/17/21 18:51 Dose: 15 mg Documented by: LYNDA Oxycodone HCl (Oxycodone Ir 5 Mg Tablet) 15 mg PO NOW ONE Stop: 04/18/21 02:47 Last Admin: 04/18/21 03:05 Dose: 15 mg Documented by: REED Oxycodone HCl (Oxycodone Ir 5 Mg Tablet) 15 mg PO Q6H [facility] Last Admin: 04/18/21 10:24 Dose: 15 mg Documented by: LYNDA Oxycodone HCl (Oxycodone Ir 5 Mg Tablet) 15 mg PO Q6H [facility] Oxycodone HCl (Oxycodone Ir 5 Mg Tablet) 15 mg PO 1545 ONE Stop: 04/18/21 15:46 Last Admin: 04/18/21 16:33 Dose: 15 mg Documented by: TARAS Oxycodone HCl (Oxycodone Ir 5 Mg Tablet) 15 mg PO NOW ONE Stop: 04/18/21 19:48 Last Admin: 04/18/21 19:50 Dose: 15 mg Documented by: TARAS Pantoprazole Sodium (Pantoprazole 40 Mg Vial) 40 mg IV NOW ONE Stop: 04/17/21 21:35 Last Admin: 04/17/21 22:03 Dose: 40 mg Documented by: REED Pantoprazole Sodium (Pantoprazole 40 Mg Vial) 40 mg IV BID [facility] Last Admin: 04/18/21 19:50 Dose: 40 mg Documented by: Admin: 04/18/21 09:30 Dose: 40 mg Documented by: LYNDA Potassium Chloride (Potassium Chloride 20 Meq Tab) 40 meq PO NOW ONE Stop: 04/17/21 18:42 Last Admin: 04/17/21 18:51 Dose: 40 meq Documented by: LYNDA Potassium Chloride (Potassium Chloride 20 Meq Tab) 40 meq PO NOW ONE Stop: 04/18/21 01:39 Last Admin: 04/18/21 01:57 Dose: 40 meq Documented by: REED Topiramate (Topiramate 100 Mg Tablet) 100 mg PO BID [facility] Last Admin: 04/18/21 19:42 Dose: 100 mg Documented by: Admin: 04/18/21 09:23 Dose: 100 mg Documented by: LYNDA Reevaluation(s) Reevaluation #1: Patient developed AFib with RVR while in the department. Consultations Consultation #1: Dr. Noble with cardiology recommends continue note diltiazem, heparin drip, potassium replacement, PPI for gastric protection with history of GI bleeds and echo. Suspect more likely demand ischemia but she does agree patient may benefit from seeing Cardiology. Patient did not have formal atrial fibrillation diagnosis in the past. Vital Signs Vital signs: Vital Signs - 8 hr 04/18/21 11:16 04/18/21 11:30 04/18/21 11:45 Pulse Rate 75 66 62 Respiratory Rate 16 22 18 Blood Pressure 170/97 H 124/53 L 95/56 L Pulse Oximetry 95 96 95 04/18/21 12:00 04/18/21 12:15 04/18/21 12:30 Pulse Rate 61 59 L 124 H Respiratory Rate 15 15 21 Blood Pressure 108/61 105/57 L 114/73 Pulse Oximetry 95 96 97 04/18/21 12:45 04/18/21 13:00 04/18/21 13:30 Pulse Rate 59 L 62 60 Respiratory Rate 22 31 H 18 Blood Pressure 108/80 131/63 129/59 L Pulse Oximetry 98 96 99 04/18/21 13:45 04/18/21 14:00 04/18/21 14:15 Pulse Rate 73 65 60 Respiratory Rate 19 21 Blood Pressure 112/61 119/63 128/66 Pulse Oximetry 96 100 99 04/18/21 14:30 04/18/21 14:45 04/18/21 14:53 Pulse Rate 67 60 66 Respiratory Rate 19 15 Blood Pressure 131/71 114/57 L 116/57 L Pulse Oximetry 99 98 04/18/21 15:00 04/18/21 15:15 04/18/21 15:42 Pulse Rate 57 L 85 88 Respiratory Rate 19 24 Blood Pressure 127/60 136/66 Pulse Oximetry 98 99 94 04/18/21 16:09 04/18/21 16:15 04/18/21 16:30 Pulse Rate 62 61 69 Respiratory Rate 25 H 34 H 38 H Blood Pressure 105/65 106/64 119/67 Pulse Oximetry 100 99 100 <Vilma Uriostegui MD - Last Filed: 04/18/21 19:14> Orders Ordered: Discontinued Medications Aspirin (Aspirin 81 Mg Chew Tab) 324 mg PO DAILY [facility] Last Admin: 04/18/21 09:28 Dose: 324 mg Documented by: LYNDA Carisoprodol (Carisoprodol 350 Mg Tablet) 350 mg PO NOW ONE Stop: 04/18/21 02:47 Last Admin: 04/18/21 03:19 Dose: 350 mg Documented by: ROLAN Carisoprodol (Carisoprodol 350 Mg Tablet) 350 mg PO BID [facility] Last Admin: 04/18/21 19:42 Dose: 350 mg Documented by: Admin: 04/18/21 09:30 Dose: 350 mg Documented by: LYNDA Clonazepam (Clonazepam 0.5 Mg Tablet) 2 mg PO NOW ONE Stop: 04/17/21 21:25 Last Admin: 04/17/21 21:29 Dose: 2 mg Documented by: REED Clonazepam (Clonazepam 0.5 Mg Tablet) 2 mg PO TID [facility] Last Admin: 04/18/21 19:42 Dose: 2 mg Documented by: Admin: 04/18/21 16:34 Dose: 2 mg Documented by: Admin: 04/18/21 13:00 Dose: 2 mg Documented by: TARAS Diltiazem HCl (Diltiazem 5 Mg/Ml Sdv) 10 mg IV NOW ONE Stop: 04/17/21 19:58 Last Admin: 04/17/21 20:09 Dose: 10 mg Documented by: REED Diltiazem HCl (Diltiazem 5 Mg/Ml Sdv) 10 mg IV NOW ONE Stop: 04/17/21 21:58 Last Admin: 04/17/21 22:14 Dose: 10 mg Documented by: REED Diltiazem HCl (Diltiazem 30 Mg Tablet) 30 mg PO QID [facility] Last Admin: 04/18/21 14:53 Dose: 30 mg Documented by: TARAS Diltiazem HCl (Diltiazem 30 Mg Tablet) 30 mg PO Q6H [facility] Diltiazem HCl (Diltiazem 30 Mg Tablet) 30 mg PO NOW ONE Stop: 04/18/21 19:57 Last Admin: 04/18/21 20:00 Dose: 30 mg Documented by: TARAS Heparin Sodium (Porcine) (Heparin 5,000 Unit/Ml Vial) 4,000 unit IV NOW ONE Stop: 04/17/21 21:43 Last Admin: 04/17/21 22:03 Dose: 4,000 unit Documented by: REED Hydromorphone HCl (Hydromorphone 1 Mg Inj) 1 mg IV NOW ONE Stop: 04/18/21 12:56 Last Admin: 04/18/21 12:59 Dose: 1 mg Documented by: TARAS Hydroxychloroquine Sulfate (Hydroxychloroquine 200 Mg Tablet) 200 mg PO BID [facility] Last Admin: 04/18/21 19:42 Dose: 200 mg Documented by: Admin: 04/18/21 09:24 Dose: 200 mg Documented by: LYNDA Sodium Chloride (Normal Saline 0.9%) 1,000 mls @ 1,000 mls/hr IV BOLUS ONE Stop: 04/17/21 17:36 Last Infusion: 04/17/21 20:08 Dose: 0 mls/hr Documented by: Infusion: 04/17/21 19:58 Dose: 0 mls/hr Documented by: Admin: 04/17/21 17:37 Dose: 1,000 mls/hr Documented by: LYNDA Sodium Chloride (Normal Saline 0.9%) 1,000 mls @ 1,000 mls/hr IV BOLUS ONE Stop: 04/17/21 20:14 Last Infusion: 04/17/21 21:26 Dose: 0 mls/hr Documented by: Admin: 04/17/21 20:04 Dose: 1,000 mls/hr Documented by: REED Diltiazem HCl 125 mg/ Sodium (Chloride) 125 mls @ 5 mls/hr IV TITRATE KRYSTEN; Protocol Last Titration: 04/18/21 14:42 Dose: 0 mg/hr, 0 mls/hr Documented by: Titration: 04/18/21 04:00 Dose: 0 mg/hr, 0 mls/hr Documented by: Titration: 04/18/21 02:06 Dose: 2.5 mg/hr, 2.5 mls/hr Documented by: Titration: 04/18/21 00:58 Dose: 5 mg/hr, 5 mls/hr Documented by: Titration: 04/17/21 22:26 Dose: 15 mg/hr, 15 mls/hr Documented by: Titration: 04/17/21 21:12 Dose: 10 mg/hr, 10 mls/hr Documented by: Admin: 04/17/21 20:13 Dose: 5 mg/hr, 5 mls/hr Documented by: REED Piperacillin Sod/Tazobactam (Sod 4.5 gm/ Sodium Chloride) 100 mls @ 200 mls/hr IV NOW ONE Stop: 04/17/21 20:26 Last Infusion: 04/17/21 21:33 Dose: 0 mls/hr Documented by: Admin: 04/17/21 20:53 Dose: 200 mls/hr Documented by: REED Heparin Sodium/Dextrose (Heparin Drip) 25,000 unit in 500 mls @ 13.063 mls/hr IV CONT KRYSTEN; Protocol Last Infusion: 04/18/21 20:06 Dose: 0 units/kg/hr, 0 mls/hr Documented by: Infusion: 04/18/21 19:41 Dose: 9.19 units/kg/hr, 10 mls/hr Documented by: Infusion: 04/18/21 19:25 Dose: 10 units/kg/hr, 10.886 mls/hr Documented by: Infusion: 04/18/21 05:05 Dose: 10.2 units/kg/hr, 11.1 mls/hr Documented by: Infusion: 04/18/21 04:35 Dose: 0 units/kg/hr, 0 mls/hr Documented by: Admin: 04/17/21 22:04 Dose: 12 units/kg/hr, 13.063 mls/hr Documented by: REED Piperacillin Sod/Tazobactam (Sod 4.5 gm/ Sodium Chloride) 100 mls @ 25 mls/hr IV Q8H [facility] Last Infusion: 04/18/21 18:44 Dose: 0 mls/hr Documented by: Admin: 04/18/21 14:32 Dose: 25 mls/hr Documented by: Infusion: 04/18/21 10:33 Dose: 0 mls/hr Documented by: Admin: 04/18/21 06:28 Dose: 25 mls/hr Documented by: REED Leflunomide (Leflunomide 20 Mg Tablet) 20 mg PO DAILY [facility] Last Admin: 04/18/21 09:24 Dose: 20 mg Documented by: LYNDA Levothyroxine Sodium (Levothyroxine 137 Mcg Tablet) 137 mcg PO DAILY@0600 [facility] Last Admin: 04/18/21 09:22 Dose: 137 mcg Documented by: LYNDA Metoprolol Succinate (Metoprolol Er 50 Mg Tablet) 50 mg PO NOW ONE Stop: 04/18/21 08:01 Last Admin: 04/18/21 09:23 Dose: 50 mg Documented by: LYNDA Metoprolol Tartrate (Metoprolol Ir 25 Mg Tablet) 50 mg PO NOW ONE Stop: 04/17/21 23:49 Last Admin: 04/17/21 23:55 Dose: 50 mg Documented by: REED Morphine Sulfate (Morphine 4 Mg/Ml Inj) 4 mg IV NOW ONE Stop: 04/17/21 23:35 Last Admin: 04/17/21 23:37 Dose: 4 mg Documented by: REED Morphine Sulfate (Morphine Er 30 Mg Tablet) 30 mg PO Q8HR [facility] Last Admin: 04/18/21 14:53 Dose: 30 mg Documented by: TARAS Oxycodone HCl (Oxycodone Ir 5 Mg Tablet) 15 mg PO NOW ONE Stop: 04/17/21 18:42 Last Admin: 04/17/21 18:51 Dose: 15 mg Documented by: LYNDA Oxycodone HCl (Oxycodone Ir 5 Mg Tablet) 15 mg PO NOW ONE Stop: 04/18/21 02:47 Last Admin: 04/18/21 03:05 Dose: 15 mg Documented by: REED Oxycodone HCl (Oxycodone Ir 5 Mg Tablet) 15 mg PO Q6H [facility] Last Admin: 04/18/21 10:24 Dose: 15 mg Documented by: LYNDA Oxycodone HCl (Oxycodone Ir 5 Mg Tablet) 15 mg PO Q6H [facility] Oxycodone HCl (Oxycodone Ir 5 Mg Tablet) 15 mg PO 1545 ONE Stop: 04/18/21 15:46 Last Admin: 04/18/21 16:33 Dose: 15 mg Documented by: TARAS Oxycodone HCl (Oxycodone Ir 5 Mg Tablet) 15 mg PO NOW ONE Stop: 04/18/21 19:48 Last Admin: 04/18/21 19:50 Dose: 15 mg Documented by: TARAS Pantoprazole Sodium (Pantoprazole 40 Mg Vial) 40 mg IV NOW ONE Stop: 04/17/21 21:35 Last Admin: 04/17/21 22:03 Dose: 40 mg Documented by: REED Pantoprazole Sodium (Pantoprazole 40 Mg Vial) 40 mg IV BID [facility] Last Admin: 04/18/21 19:50 Dose: 40 mg Documented by: Admin: 04/18/21 09:30 Dose: 40 mg Documented by: LYNDA Potassium Chloride (Potassium Chloride 20 Meq Tab) 40 meq PO NOW ONE Stop: 04/17/21 18:42 Last Admin: 04/17/21 18:51 Dose: 40 meq Documented by: LYNDA Potassium Chloride (Potassium Chloride 20 Meq Tab) 40 meq PO NOW ONE Stop: 04/18/21 01:39 Last Admin: 04/18/21 01:57 Dose: 40 meq Documented by: REED Topiramate (Topiramate 100 Mg Tablet) 100 mg PO BID KRYSTEN Last Admin: 04/18/21 19:42 Dose: 100 mg Documented by: Admin: 04/18/21 09:23 Dose: 100 mg Documented by: LYNDA Vital Signs Vital signs: Vital Signs - 8 hr 04/18/21 11:16 04/18/21 11:30 04/18/21 11:45 Pulse Rate 75 66 62 Respiratory Rate 16 22 18 Blood Pressure 170/97 H 124/53 L 95/56 L Pulse Oximetry 95 96 95 04/18/21 12:00 04/18/21 12:15 04/18/21 12:30 Pulse Rate 61 59 L 124 H Respiratory Rate 15 15 21 Blood Pressure 108/61 105/57 L 114/73 Pulse Oximetry 95 96 97 04/18/21 12:45 04/18/21 13:00 04/18/21 13:30 Pulse Rate 59 L 62 60 Respiratory Rate 22 31 H 18 Blood Pressure 108/80 131/63 129/59 L Pulse Oximetry 98 96 99 04/18/21 13:45 04/18/21 14:00 04/18/21 14:15 Pulse Rate 73 65 60 Respiratory Rate 19 21 21 Blood Pressure 112/61 119/63 128/66 Pulse Oximetry 96 100 99 04/18/21 14:30 04/18/21 14:45 04/18/21 14:53 Pulse Rate 67 60 66 Respiratory Rate 19 15 Blood Pressure 131/71 114/57 L 116/57 L Pulse Oximetry 99 98 04/18/21 15:00 04/18/21 15:15 04/18/21 15:42 Pulse Rate 57 L 85 88 Respiratory Rate 19 24 Blood Pressure 127/60 136/66 Pulse Oximetry 98 99 94 04/18/21 16:09 04/18/21 16:15 04/18/21 16:30 Pulse Rate 62 61 69 Respiratory Rate 25 H 34 H 38 H Blood Pressure 105/65 106/64 119/67 Pulse Oximetry 100 99 100 MDM - Nausea/Vomiting/Diarrhea <Joanie Duarte DO - Last Filed: 04/28/21 19:42> Lab Data Result diagrams: 04/18/21 08:35 07/22/21 08:35 Labs: Lab Results 04/17/21 04/17/21 04/17/21 Range/Units 16:12 17:25 17:25 WBC 8.5 (4.5-11.0) X10^3/uL RBC 4.80 (4.0-5.2) X10^6/uL Hgb 15.5 (12.0-16.0) g/dL Hct 45.5 (36-46) % MCV 94.7 (80-100) fL MCH 32.2 (26-34) PG MCHC 34.0 (30-36) % RDW 14.3 (11.6-14.8) % Plt Count 293 (150-400) X10^3/uL Neut % (Auto) 81.0 H (50-75) % Lymph % (Auto) 11.1 L (25-40) % Branch % (Auto) 7.4 (3-14) % Eos % (Auto) 0.2 L (2-4) % Baso % (Auto) 0.3 (0-2) % Neut # (Auto) 6900 (8400-5149) /uL Lymph # (Auto) 900 L (1639-1656) /uL Branch # (Auto) 600 (0-900) /uL Eos # (Auto) 0 (0-450) /uL Baso # (Auto) 0 (0-100) /uL APTT (26.4-36.2) SECONDS Sodium 137 (137-145) mmol/L Potassium 3.0 L (3.4-5.1) mmol/L Chloride 106 (98-107) mmol/L Carbon Dioxide 17 L (22-32) mmol/L BUN 28 H (7-17) mg/dL Creatinine 0.55 (0.52-1.04) mg/dL Estimated GFR > 60.0 (>60) mL/min BUN/Creatinine Ratio 50.9 H (6-22) Glucose 114 H (80-110) mg/dL Lactate (0.7-2.1) mmol/L Calcium 9.7 (8.4-10.2) mg/dL Magnesium (1.6-2.3) mg/dL Total Bilirubin 0.7 (0.2-1.3) mg/dL AST 81 H (14-36) IU/L ALT 103 H (<35) IU/L Alkaline Phosphatase 455 H (38-126) U/L Total Creatine Kinase (30-135) U/L CK-MB (CK-2) (<2.37) ng/mL CK-MB (CK-2) Rel Index (1.5-5.0) % Troponin I (0.01-0.034) ng/mL NT-Pro-B Natriuret Pep (<125) pg/mL Total Protein 8.0 (6.3-8.2) g/dL Albumin 4.5 (3.5-5.0) g/dL Globulin 3.5 (1.7-4.1) g/dL Albumin/Globulin Ratio 1.3 (1.0-2.8) Lipase 115 (23-300) U/L SARS-CoV-2 (PCR) Negative (Negative) 04/17/21 04/17/21 04/18/21 Range/Units 17:25 18:35 01:00 WBC (4.5-11.0) X10^3/uL RBC (4.0-5.2) X10^6/uL Hgb (12.0-16.0) g/dL Hct (36-46) % MCV (80-100) fL MCH (26-34) PG MCHC (30-36) % RDW (11.6-14.8) % Plt Count (150-400) X10^3/uL Neut % (Auto) (50-75) % Lymph % (Auto) (25-40) % Branch % (Auto) (3-14) % Eos % (Auto) (2-4) % Baso % (Auto) (0-2) % Neut # (Auto) (1464-8964) /uL Lymph # (Auto) (4782-8202) /uL Branch # (Auto) (0-900) /uL Eos # (Auto) (0-450) /uL Baso # (Auto) (0-100) /uL APTT (26.4-36.2) SECONDS Sodium 137 (137-145) mmol/L Potassium 3.1 L (3.4-5.1) mmol/L Chloride 113 H (98-107) mmol/L Carbon Dioxide 17 L (22-32) mmol/L BUN 21 H (7-17) mg/dL Creatinine 0.43 L (0.52-1.04) mg/dL Estimated GFR > 60.0 (>60) mL/min BUN/Creatinine Ratio 48.8 H (6-22) Glucose 83 (80-110) mg/dL Lactate 1.3 (0.7-2.1) mmol/L Calcium 7.8 L (8.4-10.2) mg/dL Magnesium 2.1 (1.6-2.3) mg/dL Total Bilirubin (0.2-1.3) mg/dL AST (14-36) IU/L ALT (<35) IU/L Alkaline Phosphatase (38-126) U/L Total Creatine Kinase 125 (30-135) U/L CK-MB (CK-2) 6.36 H (<2.37) ng/mL CK-MB (CK-2) Rel Index 5.1 H (1.5-5.0) % Troponin I 0.281 H* 0.283 H* (0.01-0.034) ng/mL NT-Pro-B Natriuret Pep 716 H (<125) pg/mL Total Protein (6.3-8.2) g/dL Albumin (3.5-5.0) g/dL Globulin (1.7-4.1) g/dL Albumin/Globulin Ratio (1.0-2.8) Lipase (23-300) U/L SARS-CoV-2 (PCR) (Negative) 04/18/21 04/18/21 04/18/21 Range/Units 04:10 08:35 08:35 WBC 4.5 (4.5-11.0) X10^3/uL RBC 3.77 L (4.0-5.2) X10^6/uL Hgb 12.0 (12.0-16.0) g/dL Hct 35.7 L (36-46) % MCV 94.6 (80-100) fL MCH 31.8 (26-34) PG MCHC 33.6 (30-36) % RDW 14.2 (11.6-14.8) % Plt Count 227 (150-400) X10^3/uL Neut % (Auto) 58.0 D (50-75) % Lymph % (Auto) 30.4 (25-40) % Branch % (Auto) 9.2 (3-14) % Eos % (Auto) 1.4 L (2-4) % Baso % (Auto) 1.0 (0-2) % Neut # (Auto) 2600 (0516-8404) /uL Lymph # (Auto) 1400 (7479-1268) /uL Branch # (Auto) 400 (0-900) /uL Eos # (Auto) 100 (0-450) /uL Baso # (Auto) 0 (0-100) /uL APTT 96 H* D (26.4-36.2) SECONDS Sodium 139 (137-145) mmol/L Potassium 3.7 (3.4-5.1) mmol/L Chloride 114 H (98-107) mmol/L Carbon Dioxide 19 L (22-32) mmol/L BUN 20 H (7-17) mg/dL Creatinine 0.45 L (0.52-1.04) mg/dL Estimated GFR > 60.0 (>60) mL/min BUN/Creatinine Ratio 44.4 H (6-22) Glucose 82 (80-110) mg/dL Lactate (0.7-2.1) mmol/L Calcium 8.1 L (8.4-10.2) mg/dL Magnesium (1.6-2.3) mg/dL Total Bilirubin (0.2-1.3) mg/dL AST (14-36) IU/L ALT (<35) IU/L Alkaline Phosphatase (38-126) U/L Total Creatine Kinase (30-135) U/L CK-MB (CK-2) (<2.37) ng/mL CK-MB (CK-2) Rel Index (1.5-5.0) % Troponin I 0.316 H* (0.01-0.034) ng/mL NT-Pro-B Natriuret Pep (<125) pg/mL Total Protein (6.3-8.2) g/dL Albumin (3.5-5.0) g/dL Globulin (1.7-4.1) g/dL Albumin/Globulin Ratio (1.0-2.8) Lipase (23-300) U/L SARS-CoV-2 (PCR) (Negative) 07/22/21 07/22/21 07/22/21 Range/Units 08:35 10:16 16:25 WBC (4.5-11.0) X10^3/uL RBC (4.0-5.2) X10^6/uL Hgb (12.0-16.0) g/dL Hct (36-46) % MCV (80-100) fL MCH (26-34) PG MCHC (30-36) % RDW (11.6-14.8) % Plt Count (150-400) X10^3/uL Neut % (Auto) (50-75) % Lymph % (Auto) (25-40) % Branch % (Auto) (3-14) % Eos % (Auto) (2-4) % Baso % (Auto) (0-2) % Neut # (Auto) (8362-9937) /uL Lymph # (Auto) (8555-6582) /uL Branch # (Auto) (0-900) /uL Eos # (Auto) (0-450) /uL Baso # (Auto) (0-100) /uL APTT 56 H D 73 H* D (26.4-36.2) SECONDS Sodium (137-145) mmol/L Potassium (3.4-5.1) mmol/L Chloride (98-107) mmol/L Carbon Dioxide (22-32) mmol/L BUN (7-17) mg/dL Creatinine (0.52-1.04) mg/dL Estimated GFR (>60) mL/min BUN/Creatinine Ratio (6-22) Glucose (80-110) mg/dL Lactate (0.7-2.1) mmol/L Calcium (8.4-10.2) mg/dL Magnesium (1.6-2.3) mg/dL Total Bilirubin (0.2-1.3) mg/dL AST (14-36) IU/L ALT (<35) IU/L Alkaline Phosphatase (38-126) U/L Total Creatine Kinase (30-135) U/L CK-MB (CK-2) (<2.37) ng/mL CK-MB (CK-2) Rel Index (1.5-5.0) % Troponin I Cancelled (0.01-0.034) ng/mL NT-Pro-B Natriuret Pep (<125) pg/mL Total Protein (6.3-8.2) g/dL Albumin (3.5-5.0) g/dL Globulin (1.7-4.1) g/dL Albumin/Globulin Ratio (1.0-2.8) Lipase (23-300) U/L SARS-CoV-2 (PCR) (Negative) 04/18/21 04/18/21 Range/Units 16:25 16:37 WBC (4.5-11.0) X10^3/uL RBC (4.0-5.2) X10^6/uL Hgb (12.0-16.0) g/dL Hct (36-46) % MCV (80-100) fL MCH (26-34) PG MCHC (30-36) % RDW (11.6-14.8) % Plt Count (150-400) X10^3/uL Neut % (Auto) (50-75) % Lymph % (Auto) (25-40) % Branch % (Auto) (3-14) % Eos % (Auto) (2-4) % Baso % (Auto) (0-2) % Neut # (Auto) (4792-0841) /uL Lymph # (Auto) (9628-8133) /uL Branch # (Auto) (0-900) /uL Eos # (Auto) (0-450) /uL Baso # (Auto) (0-100) /uL APTT (26.4-36.2) SECONDS Sodium (137-145) mmol/L Potassium (3.4-5.1) mmol/L Chloride (98-107) mmol/L Carbon Dioxide (22-32) mmol/L BUN (7-17) mg/dL Creatinine (0.52-1.04) mg/dL Estimated GFR (>60) mL/min BUN/Creatinine Ratio (6-22) Glucose (80-110) mg/dL Lactate (0.7-2.1) mmol/L Calcium (8.4-10.2) mg/dL Magnesium (1.6-2.3) mg/dL Total Bilirubin (0.2-1.3) mg/dL AST (14-36) IU/L ALT (<35) IU/L Alkaline Phosphatase (38-126) U/L Total Creatine Kinase 86 (30-135) U/L CK-MB (CK-2) TNP (<2.37) ng/mL CK-MB (CK-2) Rel Index TNP (1.5-5.0) % Troponin I 0.207 H* (0.01-0.034) ng/mL NT-Pro-B Natriuret Pep (<125) pg/mL Total Protein (6.3-8.2) g/dL Albumin (3.5-5.0) g/dL Globulin (1.7-4.1) g/dL Albumin/Globulin Ratio (1.0-2.8) Lipase (23-300) U/L SARS-CoV-2 (PCR) Negative (Negative) Imaging Data CT scan - abdomen/pelvis: Radiologist's Impression: [address] [id number] Scan ReportSigned Patient: Jordana Reyes DMR#: [id number]: 1Acct:[id number]/Sex: 70 / FDate of Service: 04/17/21Loc: EDAccession Number: [id number] Procedure: CT abdomen pelvis w con Ordering Provider: Joanie Duarte D.O. PROCEDURE: CT ABDOMEN PELVIS W CON INDICATIONS: diarrhea x 6 days, abd pain TECHNIQUE: After the administration of intravenous contrast, axial sections acquired from the lung bases to the pubic symphysis. Coronal and sagittal reformats were performed. For radiation dose reduction, the following was used: automated exposure control, adjustment of mA and/or kV according to patient size. COMPARISON: None. FINDINGS: Image quality: Excellent. Lung bases: Large hiatal hernia Heart: No significant findings. ABDOMEN: Liver: Unremarkable. Gallbladder: Gallbladder wall is mildly hyperemic and there is a small amount of pericholecystic fluid. No calcified stone visible. Biliary ducts: Unremarkable. Pancreas: Unremarkable. Spleen: Unremarkable. Adrenal Glands: Unremarkable. Kidneys and Ureters: Unremarkable. Stomach and Bowel: Hiatal hernia contains the proximal 3rd of the stomach. Several small bowel loops are fluid-filled, slightly prominent, and contain air-fluid levels. The sigmoid colon demonstrates diverticula as well as diffuse wall thickening. No significant pericholecystic fluid, though there is mild mucosal hyperemia. No extraluminal gas or adjacent fluid collections. Liquid stool and air-fluid levels are seen in the proximal colon. Peritoneum: No abnormal intraperitoneal fluid. No free air. Ventral Wall: No hernias. Abdominal Nodes: No retroperitoneal or mesenteric adenopathy by size criteria. Mild abdominal aortic atherosclerotic calcification. Vessels: Aorta and inferior vena cava are normal in size. PELVIS: Pelvic Organs: Unremarkable. Bladder: Unremarkable. Pelvic Nodes: No enlarged lymph nodes. Miscellaneous: No hernias are seen. Bones: Osteopenia. Moderate degenerative disease in the right hip. Moderate to severe thoracolumbar scoliosis and disc degeneration. Chronic appearing lower thoracic compression fractures. IMPRESSION: 1. Diffuse distal colonic wall thickening and mucosal hyperemia suggesting colitis, most likely infectious, less likely inflammatory. 2. Air-fluid levels in mildly dilated small bowel suggesting enteritis or reactive ileus. No obstruction. 3. Mild gallbladder wall hyperemia and pericholecystic fluid. Correlate clinically and consider right upper quadrant ultrasound. 4. Large hiatal hernia. Dictated by: Yaz Torres M.D. on 04/17/2021 at 19:49 Approved by: Yaz Torres M.D. on 04/17/2021 at 19:57 Chest x-ray: Radiologist's Impression: Jordana Reyes 70 F [address] [id number] ReportSigned Patient: Jordana Reyes DMR#: [id number]: 1950cct:[id number]/Sex: 70 / FDate of Service: 04/17/21Loc: EDAccession Number: [id number] Procedure: XR chest 1V Ordering Provider: Joanie Duarte D.O. PROCEDURE: XR CHEST 1V INDICATIONS: afib rvr, + trop TECHNIQUE: One view of the chest was acquired. COMPARISON: [facility], CR, XR CHEST 2V, 07/31/2020, 14:00. FINDINGS: Surgical changes and devices: Lower cervical spine fusion. Cholecystectomy clips Lungs and pleura: Lungs are hyperinflated, hyperlucent, but clear. No pleural effusions or pneumothorax. Mediastinum: Mediastinal contours demonstrate moderate size, chronic appearing hiatal hernia, increased in size compared to the prior study. Heart size is normal. Bones and chest wall: Prominent S-shaped scoliosis. Remote right rib fracture. No suspicious bony lesions. Overlying soft tissues appear unremarkable. IMPRESSION: 1. Slight enlargement in hiatal hernia compared to the prior study. 2. No acute process. 3. Hyperinflation suggests asthma or emphysema. Dictated by: Yaz Torres M.D. on 04/17/2021 at 20:48 Approved by: Yaz Torres M.D. on 04/17/2021 at 20:49 US - abdomen: Radiologist's Impression: Patient two reads from radiology here-gallbladder sludge versus intrinsic soft tissue. Wall is 3.5 mm. No pericholecystic fluid or Jiménez sign. No intrinsic vascularity. Common duct is normal caliber 3.5 mm. And rads read-negative ECG Data Attestation: I personally reviewed and interpreted this ECG as follows: Interpretation: EKG 1 shows sinus tachycardia with occasional PVCs. Rate of 132, P are 200, QRS 80 QTC of 506 left anterior fascicular block. No acute ST changes appreciated EKG 2. Shows possible sinus rhythms with PACs but I suspect patient is having P waves with majority of QRS but still is in atrial fibrillation, has a are not consistent as there is still some irregular rhythm. Rate is 65 NJ intervals 170 QRS is 84 and QTC is 468 MDM Narrative Medical decision making narrative: This is a 70-year-old female comes with complaint of diarrhea for the past 6 days and concern for COVID infection after being told that her caregiver is COVID positive after being tested today. Patient has had no fevers. She has had some abdominal discomfort. She has had frequent diarrhea. She does not have any high risk factors for C diff with no frequent hospitalizations. She has noted she has had intermittent episodes of palpitations with racing heart for the past several weeks. Patient initially in the department with stable vitals CT imaging showed colitis and possible changes of the gallbladder although ultrasound findings were not consistent with cholecystitis. Patient was started on Zosyn and it was noted that patient developed tachycardia and is in AFib with RVR. Patient's rhythm persisted. She was started on Cardizem and a drip as she is not anticoagulated and is not a candidate for cardioversion as she is non stable. Troponin was obtained although she has had no chest pain or pressure and is asymptomatic in the department and was positive. Patient politely refused aspirin but was started on heparin. She was given Protonix for protection patient is quite anxious she has had GI bleeds in the past requiring transfusions. Patient's rate was improving here in the department after the additional of some oral metoprolol her Cardizem drip has been weaned down. At this time we do not have an ICU bed available in patient may likely benefit from cardiology evaluation. Hospitals including [facility], , [facility] are all currently full. Patient is currently boarding in the department and was signed out to Dr. Uriostegui while awaiting placement. <Vilma Uriostegui MD - Last Filed: 04/18/21 19:14> Lab Data Labs: Lab Results 04/17/21 04/17/21 04/17/21 Range/Units 16:12 17:25 17:25 WBC 8.5 (4.5-11.0) X10^3/uL RBC 4.80 (4.0-5.2) X10^6/uL Hgb 15.5 (12.0-16.0) g/dL Hct 45.5 (36-46) % MCV 94.7 (80-100) fL MCH 32.2 (26-34) PG MCHC 34.0 (30-36) % RDW 14.3 (11.6-14.8) % Plt Count 293 (150-400) X10^3/uL Neut % (Auto) 81.0 H (50-75) % Lymph % (Auto) 11.1 L (25-40) % Branch % (Auto) 7.4 (3-14) % Eos % (Auto) 0.2 L (2-4) % Baso % (Auto) 0.3 (0-2) % Neut # (Auto) 6900 (7192-3824) /uL Lymph # (Auto) 900 L (5687-6135) /uL Branch # (Auto) 600 (0-900) /uL Eos # (Auto) 0 (0-450) /uL Baso # (Auto) 0 (0-100) /uL APTT (26.4-36.2) SECONDS Sodium 137 (137-145) mmol/L Potassium 3.0 L (3.4-5.1) mmol/L Chloride 106 (98-107) mmol/L Carbon Dioxide 17 L (22-32) mmol/L BUN 28 H (7-17) mg/dL Creatinine 0.55 (0.52-1.04) mg/dL Estimated GFR > 60.0 (>60) mL/min BUN/Creatinine Ratio 50.9 H (6-22) Glucose 114 H (80-110) mg/dL Lactate (0.7-2.1) mmol/L Calcium 9.7 (8.4-10.2) mg/dL Magnesium (1.6-2.3) mg/dL Total Bilirubin 0.7 (0.2-1.3) mg/dL AST 81 H (14-36) IU/L ALT 103 H (<35) IU/L Alkaline Phosphatase 455 H (38-126) U/L Total Creatine Kinase (30-135) U/L CK-MB (CK-2) (<2.37) ng/mL CK-MB (CK-2) Rel Index (1.5-5.0) % Troponin I (0.01-0.034) ng/mL NT-Pro-B Natriuret Pep (<125) pg/mL Total Protein 8.0 (6.3-8.2) g/dL Albumin 4.5 (3.5-5.0) g/dL Globulin 3.5 (1.7-4.1) g/dL Albumin/Globulin Ratio 1.3 (1.0-2.8) Lipase 115 (23-300) U/L SARS-CoV-2 (PCR) Negative (Negative) 04/17/21 04/17/21 04/18/21 Range/Units 17:25 18:35 01:00 WBC (4.5-11.0) X10^3/uL RBC (4.0-5.2) X10^6/uL Hgb (12.0-16.0) g/dL Hct (36-46) % MCV (80-100) fL MCH (26-34) PG MCHC (30-36) % RDW (11.6-14.8) % Plt Count (150-400) X10^3/uL Neut % (Auto) (50-75) % Lymph % (Auto) (25-40) % Branch % (Auto) (3-14) % Eos % (Auto) (2-4) % Baso % (Auto) (0-2) % Neut # (Auto) (2958-0117) /uL Lymph # (Auto) (9461-3259) /uL Branch # (Auto) (0-900) /uL Eos # (Auto) (0-450) /uL Baso # (Auto) (0-100) /uL APTT (26.4-36.2) SECONDS Sodium 137 (137-145) mmol/L Potassium 3.1 L (3.4-5.1) mmol/L Chloride 113 H (98-107) mmol/L Carbon Dioxide 17 L (22-32) mmol/L BUN 21 H (7-17) mg/dL Creatinine 0.43 L (0.52-1.04) mg/dL Estimated GFR > 60.0 (>60) mL/min BUN/Creatinine Ratio 48.8 H (6-22) Glucose 83 (80-110) mg/dL Lactate 1.3 (0.7-2.1) mmol/L Calcium 7.8 L (8.4-10.2) mg/dL Magnesium 2.1 (1.6-2.3) mg/dL Total Bilirubin (0.2-1.3) mg/dL AST (14-36) IU/L ALT (<35) IU/L Alkaline Phosphatase (38-126) U/L Total Creatine Kinase 125 (30-135) U/L CK-MB (CK-2) 6.36 H (<2.37) ng/mL CK-MB (CK-2) Rel Index 5.1 H (1.5-5.0) % Troponin I 0.281 H* 0.283 H* (0.01-0.034) ng/mL NT-Pro-B Natriuret Pep 716 H (<125) pg/mL Total Protein (6.3-8.2) g/dL Albumin (3.5-5.0) g/dL Globulin (1.7-4.1) g/dL Albumin/Globulin Ratio (1.0-2.8) Lipase (23-300) U/L SARS-CoV-2 (PCR) (Negative) 04/18/21 04/18/21 04/18/21 Range/Units 04:10 08:35 08:35 WBC 4.5 (4.5-11.0) X10^3/uL RBC 3.77 L (4.0-5.2) X10^6/uL Hgb 12.0 (12.0-16.0) g/dL Hct 35.7 L (36-46) % MCV 94.6 (80-100) fL MCH 31.8 (26-34) PG MCHC 33.6 (30-36) % RDW 14.2 (11.6-14.8) % Plt Count 227 (150-400) X10^3/uL Neut % (Auto) 58.0 D (50-75) % Lymph % (Auto) 30.4 (25-40) % Branch % (Auto) 9.2 (3-14) % Eos % (Auto) 1.4 L (2-4) % Baso % (Auto) 1.0 (0-2) % Neut # (Auto) 2600 (1487-7468) /uL Lymph # (Auto) 1400 (1184-5419) /uL Branch # (Auto) 400 (0-900) /uL Eos # (Auto) 100 (0-450) /uL Baso # (Auto) 0 (0-100) /uL APTT 96 H* D (26.4-36.2) SECONDS Sodium 139 (137-145) mmol/L Potassium 3.7 (3.4-5.1) mmol/L Chloride 114 H (98-107) mmol/L Carbon Dioxide 19 L (22-32) mmol/L BUN 20 H (7-17) mg/dL Creatinine 0.45 L (0.52-1.04) mg/dL Estimated GFR > 60.0 (>60) mL/min BUN/Creatinine Ratio 44.4 H (6-22) Glucose 82 (80-110) mg/dL Lactate (0.7-2.1) mmol/L Calcium 8.1 L (8.4-10.2) mg/dL Magnesium (1.6-2.3) mg/dL Total Bilirubin (0.2-1.3) mg/dL AST (14-36) IU/L ALT (<35) IU/L Alkaline Phosphatase (38-126) U/L Total Creatine Kinase (30-135) U/L CK-MB (CK-2) (<2.37) ng/mL CK-MB (CK-2) Rel Index (1.5-5.0) % Troponin I 0.316 H* (0.01-0.034) ng/mL NT-Pro-B Natriuret Pep (<125) pg/mL Total Protein (6.3-8.2) g/dL Albumin (3.5-5.0) g/dL Globulin (1.7-4.1) g/dL Albumin/Globulin Ratio (1.0-2.8) Lipase (23-300) U/L SARS-CoV-2 (PCR) (Negative) 04/18/21 04/18/21 04/18/21 Range/Units 08:35 10:16 16:25 WBC (4.5-11.0) X10^3/uL RBC (4.0-5.2) X10^6/uL Hgb (12.0-16.0) g/dL Hct (36-46) % MCV (80-100) fL MCH (26-34) PG MCHC (30-36) % RDW (11.6-14.8) % Plt Count (150-400) X10^3/uL Neut % (Auto) (50-75) % Lymph % (Auto) (25-40) % Branch % (Auto) (3-14) % Eos % (Auto) (2-4) % Baso % (Auto) (0-2) % Neut # (Auto) (8524-8486) /uL Lymph # (Auto) (6467-6857) /uL Branch # (Auto) (0-900) /uL Eos # (Auto) (0-450) /uL Baso # (Auto) (0-100) /uL APTT 56 H D 73 H* D (26.4-36.2) SECONDS Sodium (137-145) mmol/L Potassium (3.4-5.1) mmol/L Chloride (98-107) mmol/L Carbon Dioxide (22-32) mmol/L BUN (7-17) mg/dL Creatinine (0.52-1.04) mg/dL Estimated GFR (>60) mL/min BUN/Creatinine Ratio (6-22) Glucose (80-110) mg/dL Lactate (0.7-2.1) mmol/L Calcium (8.4-10.2) mg/dL Magnesium (1.6-2.3) mg/dL Total Bilirubin (0.2-1.3) mg/dL AST (14-36) IU/L ALT (<35) IU/L Alkaline Phosphatase (38-126) U/L Total Creatine Kinase (30-135) U/L CK-MB (CK-2) (<2.37) ng/mL CK-MB (CK-2) Rel Index (1.5-5.0) % Troponin I Cancelled (0.01-0.034) ng/mL NT-Pro-B Natriuret Pep (<125) pg/mL Total Protein (6.3-8.2) g/dL Albumin (3.5-5.0) g/dL Globulin (1.7-4.1) g/dL Albumin/Globulin Ratio (1.0-2.8) Lipase (23-300) U/L SARS-CoV-2 (PCR) (Negative) 04/18/21 04/18/21 Range/Units 16:25 16:37 WBC (4.5-11.0) X10^3/uL RBC (4.0-5.2) X10^6/uL Hgb (12.0-16.0) g/dL Hct (36-46) % MCV (80-100) fL MCH (26-34) PG MCHC (30-36) % RDW (11.6-14.8) % Plt Count (150-400) X10^3/uL Neut % (Auto) (50-75) % Lymph % (Auto) (25-40) % Branch % (Auto) (3-14) % Eos % (Auto) (2-4) % Baso % (Auto) (0-2) % Neut # (Auto) (8310-2399) /uL Lymph # (Auto) (4910-2196) /uL Branch # (Auto) (0-900) /uL Eos # (Auto) (0-450) /uL Baso # (Auto) (0-100) /uL APTT (26.4-36.2) SECONDS Sodium (137-145) mmol/L Potassium (3.4-5.1) mmol/L Chloride (98-107) mmol/L Carbon Dioxide (22-32) mmol/L BUN (7-17) mg/dL Creatinine (0.52-1.04) mg/dL Estimated GFR (>60) mL/min BUN/Creatinine Ratio (6-22) Glucose (80-110) mg/dL Lactate (0.7-2.1) mmol/L Calcium (8.4-10.2) mg/dL Magnesium (1.6-2.3) mg/dL Total Bilirubin (0.2-1.3) mg/dL AST (14-36) IU/L ALT (<35) IU/L Alkaline Phosphatase (38-126) U/L Total Creatine Kinase 86 (30-135) U/L CK-MB (CK-2) TNP (<2.37) ng/mL CK-MB (CK-2) Rel Index TNP (1.5-5.0) % Troponin I 0.207 H* (0.01-0.034) ng/mL NT-Pro-B Natriuret Pep (<125) pg/mL Total Protein (6.3-8.2) g/dL Albumin (3.5-5.0) g/dL Globulin (1.7-4.1) g/dL Albumin/Globulin Ratio (1.0-2.8) Lipase (23-300) U/L SARS-CoV-2 (PCR) Negative (Negative) MDM Narrative Medical decision making narrative: This is a 70-year-old female comes with complaint of diarrhea for the past 6 days and concern for COVID infection after being told that her caregiver is COVID positive after being tested today. Patient has had no fevers. She has had some abdominal discomfort. She has had frequent diarrhea. She does not have any high risk factors for C diff with no frequent hospitalizations. She has noted she has had intermittent episodes of palpitations with racing heart for the past several weeks. Patient initially in the department with stable vitals CT imaging showed colitis and possible changes of the gallbladder although ultrasound findings were not consistent with cholecystitis. Patient was started on Zosyn and it was noted that patient developed tachycardia and is in AFib with RVR. Patient's rhythm persisted. She was started on Cardizem and a drip as she is not anticoagulated and is not a candidate for cardioversion as she is non stable. Troponin was obtained although she has had no chest pain or pressure and is asymptomatic in the department and was positive. Patient politely refused aspirin but was started on heparin. She was given Protonix for protection patient is quite anxious she has had GI bleeds in the past requiring transfusions. Patient's rate was improving here in the department after the additional of some oral metoprolol her Cardizem drip has been weaned down. At this time we do not have an ICU bed available in patient may likely benefit from cardiology evaluation. Hospitals including [place], [facility], [facility], , [facility] are all currently full. Patient is currently boarding in the department and was signed out to Dr. Uriostegui while awaiting placement. 04/18 956am care is assumed this morning. Has been in the emergency room with initial presentation of diarrhea but also noted to be in atrial fibrillation with rapid ventricular response that was initially treated with IV diltiazem. The diltiazem drip has been weaned off and she currently is on 30 mg of diltiazem orally with continued atrial fibrillation with rates in the low 60s. Initial troponin at 5:30 p.m. on 04/17 was 0.281. This was presumed to be demand ischemia in light of the new atrial fibrillation with rapid ventricular response. Repeated at 1:00 a.m. was 0.283 and repeated again this morning is 0.316. She remains on heparin. She is currently on waiting lists for [facility] and [facility] in [place]. With her increasing troponin she will not be an appropriate candidate to [facility] so will recontact previous hospitals with new information. Her diarrhea secondary to her colitis at this point remains quiescent. She is hemodynamically stable. 04/18 4:55pm Dr Melinda Nelson, Hospitalist [facility] accept patient in transfer. Critical Care Time <Joanie Duarte, - Last Filed: 04/28/21 19:42> Critical Care Time Critical Care Time: Yes Attestation: The high probability of a clinically significant, sudden or life threatening deterioration of the [] system(s) required my full and direct attention, intervention and personal management. The aggregate critical care time was [] minutes. This time is in addition to time spent performing reported procedures but includes the following: [x] Data Review and interpretation [x] Patient assessment and monitoring of vital signs [x] Documentation [x] Medication orders and management <Vilma Uriostegui MD - Last Filed: 04/18/21 19:14> Critical Care Time Total Critical Care Time: 156 Attestation: The high probability of a clinically significant, sudden or life threatening deterioration of the [cardiac] system(s) required my full and direct attention, intervention and personal management. The aggregate critical care time was 156] minutes. This time is in addition to time spent performing reported procedures but includes the following: [x] Data Review and interpretation [x] Patient assessment and monitoring of vital signs [x] Documentation [x] Medication orders and management Continued inpatient management in the Emergency department of acute coronary syndrome, atrial fibrillation with rapid ventricular response and colitis in the emergency department due to lack of hospital beds available Discharge Plan Departure Patient Disposition: [facility] Clinical Impression: Acute non-ST elevation myocardial infarction (NSTEMI), Hypokalemia, Atrial fibrillation with RVR, Colitis, Polypharmacy Diarrhea Qualifiers: Diarrhea type: unspecified type Qualified Code(s): R19.7 - Diarrhea, unspecified Prescriptions: No Action carisoprodol 350 MG tablet 350 mg PO TID Qty: 0 RF: 0 fluticasone propion-salmeterol [Advair Diskus] 100 MCG/50 MCG blister with device 1 puff INH BID Qty: 0 RF: 0 ProAir RespiClick 90 MCG aerosol powdr breath activated 90 mcg IH PRN PRN (Reason: Wheezing) Qty: 0 RF: 0 calcitonin (salmon) 200 unit/actuation spray,non-aerosol 1 spray intranasal (ALT) DAILY 60 Days Qty: 3.7 RF: 1 oxycodone 15 mg tablet 15 mg PO Q6HR PRN (Reason: Pain (Scale Score 7-10)) RF: 0 levothyroxine 137 mcg tablet 137 mcg PO QAM RF: 0 tizanidine 4 mg tablet 4 mg PO TID PRN (Reason: Muscle Spasm) RF: 0 potassium chloride 10 mEq tablet extended release 10 meq PO QAM RF: 0 leflunomide 20 mg tablet 20 mg PO BEDTIME RF: 0 baclofen 10 mg tablet 10 mg PO TID RF: 0 clonazepam 2 mg tablet 2 mg PO TID RF: 0 gabapentin 300 mg capsule 600 mg PO BEDTIME RF: 0 hydroxychloroquine 200 mg tablet 400 mg PO QAM RF: 0 topiramate 100 mg tablet 100 mg PO BID RF: 0 duloxetine 30 mg capsule,delayed release(DR/EC) 60 mg PO BEDTIME RF: 0 Cosentyx Pen 150 mg/mL pen injector 150 mg SUBCUT QWEEK RF: 0 morphine 30 mg tablet extended release 30 mg PO TID RF: 0 zolpidem 5 mg Tablet 5 mg PO BEDTIME RF: 0 cholecalciferol (vitamin D3) 1,250 mcg (50,000 unit) Capsule 1,250 mcg PO QWEEK RF: 0 Referrals: Ellie Blanton PA-C [Primary Care Provider] -
--- NOTE | 2021-04-17 18:41 | DI.CT.S_ITS ---
PROCEDURE: CT ABDOMEN PELVIS W CON INDICATIONS: diarrhea x 6 days, abd pain TECHNIQUE: After the administration of intravenous contrast, axial sections acquired from the lung bases to the pubic symphysis. Coronal and sagittal reformats were performed. For radiation dose reduction, the following was used: automated exposure control, adjustment of mA and/or kV according to patient size. COMPARISON: None. FINDINGS: Image quality: Excellent. Lung bases: Large hiatal hernia Heart: No significant findings. ABDOMEN: Liver: Unremarkable. Gallbladder: Gallbladder wall is mildly hyperemic and there is a small amount of pericholecystic fluid. No calcified stone visible. Biliary ducts: Unremarkable. Pancreas: Unremarkable. Spleen: Unremarkable. Adrenal Glands: Unremarkable. Kidneys and Ureters: Unremarkable. Stomach and Bowel: Hiatal hernia contains the proximal 3rd of the stomach. Several small bowel loops are fluid-filled, slightly prominent, and contain air-fluid levels. The sigmoid colon demonstrates diverticula as well as diffuse wall thickening. No significant pericholecystic fluid, though there is mild mucosal hyperemia. No extraluminal gas or adjacent fluid collections. Liquid stool and air-fluid levels are seen in the proximal colon. Peritoneum: No abnormal intraperitoneal fluid. No free air. Ventral Wall: No hernias. Abdominal Nodes: No retroperitoneal or mesenteric adenopathy by size criteria. Mild abdominal aortic atherosclerotic calcification. Vessels: Aorta and inferior vena cava are normal in size. PELVIS: Pelvic Organs: Unremarkable. Bladder: Unremarkable. Pelvic Nodes: No enlarged lymph nodes. Miscellaneous: No hernias are seen. Bones: Osteopenia. Moderate degenerative disease in the right hip. Moderate to severe thoracolumbar scoliosis and disc degeneration. Chronic appearing lower thoracic compression fractures. IMPRESSION: 1. Diffuse distal colonic wall thickening and mucosal hyperemia suggesting colitis, most likely infectious, less likely inflammatory. 2. Air-fluid levels in mildly dilated small bowel suggesting enteritis or reactive ileus. No obstruction. 3. Mild gallbladder wall hyperemia and pericholecystic fluid. Correlate clinically and consider right upper quadrant ultrasound. 4. Large hiatal hernia. Dictated by: Yaz Torres M.D. on 04/17/2021 at 19:49 Approved by: Yaz Torres M.D. on 04/17/2021 at 19:57
[2021-04-17] MEDS: OXYCODONE IR 5 MG TABLET 15 MG PO (18:51)
[2021-04-17] MEDS: POTASSIUM CHLORIDE 20 MEQ TAB 40 MEQ PO (18:51)
[2021-04-17 18:54] LABS: Lactate (Lactic Acid) 1.3 mmol/L (0.7-2.1)
[2021-04-17 19:25] LABS: Creatine Kinase 125 U/L (30-135); Magnesium 2.1 mg/dL (1.6-2.3)
--- NOTE | 2021-04-17 19:27 | CM.SWNOTE ---
MATERIALS SPECIALIST Note MATERIALS SPECIALIST receives consult and meets with patient. Patient is 70 y/o female who presents to this ED with concern of covid exposure, back pain & N/V/D. Patient reports concern that her caregiver did not call to tell her that she tested positive for covid but she learned from her caregiver's boss. Patient states she does not want to return home unless she will have a caregiver tomorrow. Patient presents at A/Ox4, presents as anxious with Afib increased heart rate when discussing her concerns. Patient states that she has a broken back and sees Pain management physician Dr. Bean and is prescribed oxycodone, morphine, and clonazepam. Patient endorses she has appt with Dr. Bean on 05/17/21. Patient endorses she sees a sourcing intern as well and has concerns about abnormalities. Patient endorses that she has a caregiver come 5 days a week, from 9am - 5pm on Tuesdays and and from 9 am - 12:45 pm on Mondays, Wednesdays and Fridays. Patient endorses she has a [facility] case briefer. Patient endorses concern for her caregiver cleaning adequately and having to ask her to do things. Patient endorses that her neighbors are very supportive and shop for her and watering her plants. Patient endorses she wants her main contact to be neighbor and friend Wolf Puentes: (Ph. # [phone]) and does not want her son Noam to be a point of contact because he disowned her and spoke foully. MATERIALS SPECIALIST indicates understanding. Patient endorses her daughter is not a support and she has not had contact with her in 8 years. Patient endorses that she has been losing liver bile the last 4 days and has been seeing stars when going to the bathroom. MATERIALS SPECIALIST contacts [facility] to inquire about alternative caregiver for patient and increased hours upon her request, MATERIALS SPECIALIST leaves requesting return call. Plan: ED provider to continue to assess POC and if there is a medical need for admission, MATERIALS SPECIALIST to f/u tomorrow with [facility]. GERALD Turner
[2021-04-17 19:38] LABS: NT-proBNP (BNP-Adult 18+) 716 pg/mL (<125)
[2021-04-17 19:40] LABS: CKMB % Relative Index 5.1 % (1.5-5.0); Creatine Kinase MB 6.36 ng/mL (<2.37)
[2021-04-17 19:55] LABS: Troponin I 0.281 ng/mL (0.01-0.034)
--- NOTE | 2021-04-17 20:00 | DI.RAD.S_ITS ---
PROCEDURE: XR CHEST 1V INDICATIONS: afib rvr, + trop TECHNIQUE: One view of the chest was acquired. COMPARISON: [facility], CR, XR CHEST 2V, 07/31/2020, 14:00. FINDINGS: Surgical changes and devices: Lower cervical spine fusion. Cholecystectomy clips Lungs and pleura: Lungs are hyperinflated, hyperlucent, but clear. No pleural effusions or pneumothorax. Mediastinum: Mediastinal contours demonstrate moderate size, chronic appearing hiatal hernia, increased in size compared to the prior study. Heart size is normal. Bones and chest wall: Prominent S-shaped scoliosis. Remote right rib fracture. No suspicious bony lesions. Overlying soft tissues appear unremarkable. IMPRESSION: 1. Slight enlargement in hiatal hernia compared to the prior study. 2. No acute process. 3. Hyperinflation suggests asthma or emphysema. Dictated by: Yaz Torres M.D. on 04/17/2021 at 20:48 Approved by: Yaz Torres M.D. on 04/17/2021 at 20:49
[2021-04-17] MEDS: dilTIAZem 5 MG/ML SDV 10 MG IV ×2 (20:09→22:14)
[2021-04-17] MEDS: dilTIAZem 125 MG in SODIUM CHLORIDE 0.9% 100 ML IV (20:13)
--- NOTE | 2021-04-17 20:25 | DI.US.S_ITS ---
PROCEDURE: US ABDOMEN LIMITED INDICATIONS: RUQ PAIN TECHNIQUE: Real-time focused scanning was performed of the abdomen, with image documentation. COMPARISON: None. FINDINGS: The gallbladder wall is mildly thickened measuring 3.5 mm. There is a large amount of sludge within the upper portion of the gallbladder. No intrinsic vascularity. There is no pericholecystic fluid or Jiménez sign per the technologist. The common duct is normal caliber at 3.5 mm. IMPRESSION: 1. Gallbladder sludge versus intrinsic soft tissue. Consider MRI of the liver and gallbladder for improved visualization of this area. Correlation with LFTs is also recommended. Dictated by: Yaz Torres M.D. on 04/17/2021 at 22:19 Approved by: Yaz Torres M.D. on 04/17/2021 at 22:22
[2021-04-17] MEDS: PIPERACILLIN/TAZO 4.5 GM in SODIUM CHLORIDE 0.9% 100 ML 200 ML IV (20:53)
[2021-04-17] MEDS: clonazePAM 0.5 MG TABLET 2 MG PO (21:29)
[2021-04-17] MEDS: HEPARIN 5,000 UNIT/ML VIAL 4000 UNIT IV (22:03)
[2021-04-17] MEDS: PANTOPRAZOLE 40 MG VIAL IV (22:03)
[2021-04-17] MEDS: HEPARIN DRIP 25,000 UNIT/500 ML IV.SOLN 13.063 UNIT IV (22:04)
[2021-04-17] MEDS: MORPHINE 4 MG/ML INJ IV (23:37)
[2021-04-17] MEDS: METOPROLOL IR 25 MG TABLET 50 MG PO (23:55)
[2021-04-18] VITALS (74 sets, daily range): BP systolic 95–170; BP diastolic 53–97; PULSE 57–124; RESP 12–38; O2SAT 94–100
[2021-04-18 01:25] LABS: BUN Creatinine Ratio 48.8 (6-22); Blood Urea Nitrogen 21 mg/dL (7-17); Calcium 7.8 mg/dL (8.4-10.2); Carbon Dioxide 17 mmol/L (22-32); Chloride 113 mmol/L (98-107); Estimated Glomerular Filt Rate > 60.0 mL/min (>60); Glucose 83 mg/dL (80-110); HEMOLYSIS < 15 (0-50); Potassium 3.1 mmol/L (3.4-5.1); Sodium 137 mmol/L (137-145)
[2021-04-18 01:39] LABS: Troponin I 0.283 ng/mL (0.01-0.034)
[2021-04-18] MEDS: POTASSIUM CHLORIDE 20 MEQ TAB 40 MEQ PO (01:57)
--- NOTE | 2021-04-18 02:14 | DI.ECHO.S_ITS ---
[facility] +---------+ : : [address] : : : : [id number] : : : : Phone: [phone]+ Echocardiogram Report + + :Name: ALY NICHOLS Study Date: 04/18/2021 Height: 60 in : :[facility] ReadingLocation: Weight: 120 lb : : Gender: Female BSA: 1.5 m2 : :: 1950 Age: 70 yrs BP: 114/61 mmHg: :Reason For Study: ATRIAL FIBRILLATION : :Ordering Physician: EFRAIN, : :ADALBERTO Performed By: Vandana Reeves : :Referring: ADALBERTO ZUNIGA : + + Interpretation Summary The left ventricle is normal in size and wall thickness. Left ventricular systolic function appears normal without focal wall motion abnormalities. The ejection fraction is estimated to be 60-65%. No change since prior study. Diastolic parameters suggest probable normal left ventricular diastolic function and normal filling pressures. The right ventricle is normal in size and function. Right ventricular systolic pressure is estimated to be 17 mmHg plus the clinically estimated CVP which cannot be estimated on this exam. The left atrium is moderately dilated. The right atrium is moderately dilated. There is mild to moderate aortic regurgitation. There have not changes since prior study. There is no other significant valvular heart disease. The aortic root is normal size. Procedure: A two-dimensional transthoracic echocardiogram with color flow and Doppler was performed. The study quality was technically adequate. The patient was in sinus rhythm with heart rates between 60-71 bpm during the exam. Left Ventricle: The left ventricle is normal in size and wall thickness. Left ventricular systolic function appears normal without focal wall motion abnormalities. The ejection fraction is estimated to be 60-65%. Diastolic parameters suggest probable normal left ventricular diastolic function and normal filling pressures. Right Ventricle: The right ventricle is normal in size and function. Atria: The left atrium is moderately dilated. The right atrium is moderately dilated. There is no Doppler evidence for an interatrial shunt. Mitral Valve: The mitral valve leaflets appear mildly thickened, but open well. There is trace mitral regurgitation. Aortic Valve: The aortic valve is trileaflet. The aortic valve is mildly calcified. The aortic valve opens well. There is no aortic valve stenosis. There is mild to moderate aortic regurgitation. Tricuspid Valve: The tricuspid valve is normal in structure and function. There is mild tricuspid regurgitation. Right ventricular systolic pressure is estimated to be 17 mmHg plus the clinically estimated CVP which cannot be estimated on this exam. Pulmonic Valve: The pulmonic valve leaflets are thin and pliable; valve motion is normal. There is no pulmonic valvular regurgitation. There is no other significant valvular heart disease. Great Vessels: The aortic root is normal size. The dimensions of the ascending aorta are normal. The inferior vena cava was not visualized. Pericardium/ Pleura There is no pericardial effusion. There is no pleural effusion. MMode/2D Measurements & Calculations LVIDd: 4.3 cm LVOT diam: 2.1 cm LVIDs: 3.0 cm Ao root diam: 3.0 cm FS: 31.5 % asc Aorta Diam: 3.3 cm IVSd: 0.95 cm Ao Arch Diam (Prox Trans): 2.9 cm LVPWd: 1.1 cm LV cortés. diameter/BSA (cm/m^2): 2.9 LV sys. diameter/BSA (cm/m^2): 2.0 LA A2 area: 22.1 cm2 RA long axis: 5.3 cm LA A4 area: 25.1 cm2 RA area: 20.6 cm2 LA length (vol): 6.4 cm RA vol: 68.8 ml LA vol: 73.5 ml RA : 45.8 ml/m2 LA vol index: 48.9 ml/m2 RVD1 (basal): 3.8 cm TAPSE: 1.9 cm Doppler Measurements & Calculations Ao V2 max: 185.2 cm/sec LVOT Max Sina: 94.0 cm/sec Ao V2 mean: 133.4 cm/sec LV V1 max P.5 mmHg Ao max P.7 mmHg LV V1 VTI: 20.0 cm Ao mean P.8 mmHg KODI(I,D): 1.6 cm2 Ao V2 VTI: 43.2 cm KODI(V,D): 1.8 cm2 sev ratio: 0.46 KODI indexed to BSA (cm^2/m^2): 1.1 AI P1/2t: 892.1 msec AI dec slope: 134.4 cm/sec2 MV E max sina: 78.6 cm/sec TR max sina: 205.9 cm/sec MV A max sina: 73.7 cm/sec TR max P.0 mmHg MV E/A: 1.1 PA V2 max: 75.8 cm/sec Med Peak E' Sina: 6.1 cm/sec PA V2 mean: 51.8 cm/sec E/E' med: 12.9 PA mean P.2 mmHg Lat Peak E' Sina: 7.0 cm/sec PA pr(Accel): 32.8 mmHg E/E' lat: 11.2 E/e' average: 12.1 MV dec time: 0.25 sec SV(LVOT): 69.3 ml Reading Physician:12:28 PM
[2021-04-18] MEDS: OXYCODONE IR 5 MG TABLET 15 MG PO ×4 (03:05→19:50)
[2021-04-18] MEDS: carisoprodoL 350 MG TABLET PO ×3 (03:19→19:42)
[2021-04-18 04:35] LABS: PTT Partial Thromboplastin Tim 96 SECONDS (26.4-36.2)
[2021-04-18] MEDS: PIPERACILLIN/TAZO 4.5 GM in SODIUM CHLORIDE 0.9% 100 ML 25 ML IV ×2 (06:28→14:32)
[2021-04-18 08:45] LABS: Add Manual Diff / Slide Review NO; Basophils Absolute Auto 0 /uL (0-100); Eosinophils Absolute Auto 100 /uL (0-450); Eosinophils Percent Auto 1.4 % (2-4); Hematocrit 35.7 % (36-46); Lymphocytes Absolute Auto 1400 /uL (1100-4500); Lymphocytes Percent Auto 30.4 % (25-40); Mean Corpuscular HGB Conc 33.6 % (30-36); Mean Corpuscular Hemoglobin 31.8 PG (26-34); Mean Corpuscular Volume 94.6 fL (80-100); Monocytes Absolute Auto 400 /uL (0-900); Monocytes Percent Auto 9.2 % (3-14); Neutrophils Absolute Auto 2600 /uL (1500-7000); Platelet Count 227 X10^3/uL (150-400); Red Blood Cell Count 3.77 X10^6/uL (4.0-5.2); Red Cell Distribution Width 14.2 % (11.6-14.8); White Blood Cell Count 4.5 X10^3/uL (4.5-11.0)
[2021-04-18 08:57] LABS: BUN Creatinine Ratio 44.4 (6-22); Blood Urea Nitrogen 20 mg/dL (7-17); Calcium 8.1 mg/dL (8.4-10.2); Carbon Dioxide 19 mmol/L (22-32); Chloride 114 mmol/L (98-107); Estimated Glomerular Filt Rate > 60.0 mL/min (>60); Glucose 82 mg/dL (80-110); HEMOLYSIS < 15 (0-50); Potassium 3.7 mmol/L (3.4-5.1); Sodium 139 mmol/L (137-145)
[2021-04-18 09:11] LABS: Troponin I 0.316 ng/mL (0.01-0.034)
[2021-04-18] MEDS: LEVOTHYROXINE 137 MCG TABLET PO (09:22)
[2021-04-18] MEDS: TOPIRAMATE 100 MG TABLET PO ×2 (09:23→19:42)
[2021-04-18] MEDS: METOPROLOL ER 50 MG TABLET PO (09:23)
[2021-04-18] MEDS: LEFLUNOMIDE 20 MG TABLET PO (09:24)
[2021-04-18] MEDS: HYDROXYCHLOROQUINE 200 MG TABLET PO ×2 (09:24→19:42)
[2021-04-18] MEDS: ASPIRIN 81 MG CHEW TAB 324 MG PO (09:28)
[2021-04-18] MEDS: PANTOPRAZOLE 40 MG VIAL IV ×2 (09:30→19:50)
[2021-04-18 10:32] LABS: PTT Partial Thromboplastin Tim 56 SECONDS (26.4-36.2)
[2021-04-18] MEDS: HYDROMORPHONE 1 MG INJ IV (12:59)
[2021-04-18] MEDS: clonazePAM 0.5 MG TABLET 2 MG PO ×3 (13:00→19:42)
[2021-04-18] MEDS: MORPHINE ER 30 MG TABLET PO (14:53)
[2021-04-18] MEDS: dilTIAZem 30 MG TABLET PO ×2 (14:53→20:00)
[2021-04-18 16:58] LABS: COVID19 -Nasal RAPID Negative (Negative)
[2021-04-18 16:59] LABS: Creatine Kinase 86 U/L (30-135)
[2021-04-18 17:00] LABS: PTT Partial Thromboplastin Tim 73 SECONDS (26.4-36.2)
[2021-04-18 17:37] LABS: Troponin I 0.207 ng/mL (0.01-0.034)
== END 2021-04-18 20:00 | disposition short-term general hospital (02) ==
PROVIDERS: Emergency Medicine; Emergency Provider Emergency Medicine; Family Provider Internal Medicine; PCP Physician Assistant
DX: I21.4 Non-ST elevation (NSTEMI) myocardial infarction (principal); I48.20 Chronic atrial fibrillation, unspecified; Z79.01 Long term (current) use of anticoagulants; K52.9 Noninfective gastroenteritis and colitis, unspecified; E87.6 Hypokalemia; Z79.899 Other long term (current) drug therapy; R06.02 Shortness of breath; R10.30 Lower abdominal pain, unspecified; R05 Cough; Z20.822 Contact with and (suspected) exposure to COVID-19
CPT/HCPCS: 36415; 71045; 74177; 76705; 80048; 80053; 82550; 82553; 83605; 83690; 83735; 83880; 84484; 85025; 85730; 87040; 87635; 93005; 93010; 93306; 96361; 96365; 96366; 96367; 96368; 96375; 96376; 99284; 99291; 99292; C9803; C9113; J1170; J1644; J2270; J2543

== ENCOUNTER → 2021-04-29 18:48 | Outpatient (CLI) | payer OTHER, MEDICAID, SELFPAY ==
[2021-04-29 21:18] LABS: Clostridium Difficile Tox PCR Negative for C. diff (Negative)
== END ==
PROVIDERS: Family Provider Internal Medicine; PCP Physician Assistant; Referring Provider Physician Assistant; Visit Provider Physician Assistant
DX: A04.72 Enterocolitis due to Clostridium difficile, not specified as recurrent (principal)
CPT/HCPCS: 87493

== ENCOUNTER → 2021-06-18 09:09 | Outpatient (CLI) | payer OTHER, MEDICAID, SELFPAY ==
--- NOTE | 2021-06-18 | DI.MRI.S_ITS ---
PROCEDURE: MR SHOULDER RT WO CON INDICATIONS: Adhesive capsulitis of right shoulder TECHNIQUE: Noncontrast oblique coronal T2 fast spin echo with fat saturation, oblique sagittal T1 spin echo and T2 fast spin echo with fat saturation, axial T1 spin echo and T2 fast spin echo with fat saturation through the shoulder. COMPARISON: [facility], MR, MR SHOULDER RT WO CON, 09/15/2019, 21:17. FINDINGS: Image quality: Excellent. Rotator cuff: There is full-thickness rupture of distal supraspinatus at its insertion on the humeral head with up to 4 centimeter medial retraction of torn tendon fibers to the level of glenoid. Tendinosis and low-grade articular surface partial-thickness tear involving distal infraspinatus at its insertion on the humeral head is seen. Distal subscapularis tendinosis and low to moderate grade partial-thickness tear involving superior to mid fibers of distal subscapularis is seen. Sagittal images demonstrate moderate supraspinatus muscle atrophy. Bones and bursae: No bone marrow contusions or fractures. Moderate acromioclavicular joint and glenohumeral joint osteoarthritic changes are seen. Superior migration of humeral head in relation to glenoid is also noted. There is moderate amount of subacromial subdeltoid bursal fluid. No gross intra-articular loose body. Capsule and soft tissues: Again noted is suggestion of chronic superior labral tear extending from 11-1 o'clock position and anterior-inferior labral tear at 5 to 6 o'clock position not significantly changed from prior study. The long head of the biceps tendinosis and moderate grade intrasubstance partial-thickness tear is seen. The rotator interval appears normal, without fibrosis. The coracohumeral ligament is normal in thickness. IMPRESSION: 1. Full-thickness rupture involving distal supraspinatus at its insertion on the humeral head with up to 4 cm medial retraction of torn tendon fibers to the level of glenoid. Tendinosis and low-grade articular surface partial-thickness tear involving distal infraspinatus. Tendinosis and low to moderate grade partial-thickness tear involving superior to mid fibers of distal subscapularis. Moderate supraspinatus muscle atrophy. 2. Moderate acromioclavicular joint and glenohumeral joint osteoarthritis. No fracture or dislocation. Moderate amount of subacromial subdeltoid bursal fluid. No gross intra-articular loose body. 3. Suggestion of chronic superior labral tear from 11 to 1 o'clock position and anterior-inferior labral tear at 5 to 6 o'clock position. 4. Tendinosis and moderate grade intrasubstance partial-thickness tear involving proximal intra-articular portion of long head of biceps. Dictated by: Buster Grider M.D. on 06/18/2021 at 11:30 Approved by: Buster Grider M.D. on 06/18/2021 at 12:00
== END ==
PROVIDERS: Family Provider Internal Medicine; PCP Physician Assistant; Referring Provider Orthopaedic Surgery; Visit Provider Orthopaedic Surgery
DX: M75.01 Adhesive capsulitis of right shoulder (principal); M75.21 Bicipital tendinitis, right shoulder; S46.011A Strain of muscle(s) and tendon(s) of the rotator cuff of right shoulder, initial encounter; M62.511 Muscle wasting and atrophy, not elsewhere classified, right shoulder; M19.011 Primary osteoarthritis, right shoulder; S46.111A Strain of muscle, fascia and tendon of long head of biceps, right arm, initial encounter
CPT/HCPCS: 73221

== ENCOUNTER → 2021-11-18 11:50 | Outpatient (CLI) | payer OTHER, MEDICAID, SELFPAY ==
--- NOTE | 2021-11-18 11:52 | DI.RAD.S_ITS ---
PROCEDURE: XR LUMBAR SPINE MIN 4V INDICATIONS: acute LBP s/p fall, scoliosis TECHNIQUE: 5 views of the lumbar spine acquired, including flexion and extension views. COMPARISON: [facility], CT, CT ABDOMEN PELVIS W CON, 04/17/2021, 19:00. [facility], CR, XR LUMBAR SPINE MIN 4V, 03/26/2021, 11:45. FINDINGS: Bones: 5 nonrib-bearing vertebrae are present. Moderate levoscoliosis centered at the L3 level. Grade 1 retrolisthesis L1-L2 and L2-L3. Grade 1 spondylolisthesis L5-S1. Multilevel disc degeneration, severe at the L5-S1 level. Moderate L4-L5 and L5-S1 facet joint arthropathy. No acute vertebral body compression fractures. Mild chronic compression fractures again seen at the T11 and T12 levels. No suspicious bony lesions. Soft tissues: Overlying bowel gas pattern is normal. No suspicious soft tissue calcifications. IMPRESSION: 1. Mild chronic T11 and T12 compression fractures redemonstrated and no acute fracture seen. 2. Multilevel spondylosis as was seen on prior CT scan. Dictated by: Arsalan PELAEZ Interpreted: Christian Doty MD on 11/18/2021 at 12:37 Transcribed by: ANALISA on 11/18/2021 at 12:41 Approved by: Christian Doty M.D. on 11/18/2021 at 13:25
== END ==
PROVIDERS: Family Provider Internal Medicine; PCP Physician Assistant; Referring Provider Physical Medicine & Rehabilitation; Visit Provider Physical Medicine & Rehabilitation
DX: M48.062 Spinal stenosis, lumbar region with neurogenic claudication (principal); M47.816 Spondylosis without myelopathy or radiculopathy, lumbar region; M47.817 Spondylosis without myelopathy or radiculopathy, lumbosacral region; S22.080A Wedge compression fracture of T11-T12 vertebra, initial encounter for closed fracture; S32.010A Wedge compression fracture of first lumbar vertebra, initial encounter for closed fracture; S32.010S Wedge compression fracture of first lumbar vertebra, sequela; M41.80 Other forms of scoliosis, site unspecified; R26.81 Unsteadiness on feet; R29.6 Repeated falls; Z98.1 Arthrodesis status
CPT/HCPCS: 72110; 99214

== ENCOUNTER → 2022-01-02 11:46 | Outpatient (CLI) | payer OTHER, MEDICAID, SELFPAY ==
[2022-01-02 12:44] LABS: Hemoglobin 12.2 g/dL (12.0-16.0)
[2022-01-02 13:13] LABS: Alanine Aminotransferase 20 IU/L (<35); Albumin 4.5 g/dL (3.5-5.0); Albumin Globulin Ratio 1.7 (1.0-2.8); Alkaline Phosphatase 101 U/L (38-126); Aspartate Aminotransferase 36 IU/L (14-36); BUN Creatinine Ratio 26.9 (6-22); Bilirubin Total 0.4 mg/dL (0.2-1.3); Blood Urea Nitrogen 14 mg/dL (7-17); Calcium 9.8 mg/dL (8.4-10.2); Carbon Dioxide 25 mmol/L (22-32); Chloride 102 mmol/L (98-107); Estimated Glomerular Filt Rate > 60.0 mL/min (>60); Globulin 2.7 g/dL (1.7-4.1); Glucose 80 mg/dL (80-110); HEMOLYSIS < 15 (0-50); Potassium 3.6 mmol/L (3.4-5.1); Sodium 137 mmol/L (137-145); Total Protein 7.2 g/dL (6.3-8.2)
[2022-01-02 13:36] LABS: Thyroid Stimulating Hormone 0.349 uIU/mL (0.47-4.68)
[2022-01-02 14:40] LABS: LDL Cholesterol Direct 93 mg/dL (<100)
== END ==
PROVIDERS: Family Provider Internal Medicine; PCP Physician Assistant; Referring Provider Physician Assistant; Visit Provider Physician Assistant
DX: L40.50 Arthropathic psoriasis, unspecified; M81.8 Other osteoporosis without current pathological fracture; E03.9 Hypothyroidism, unspecified; F33.1 Major depressive disorder, recurrent, moderate
CPT/HCPCS: 36415; 80053; 83721; 84443; 85014; 85018

== ENCOUNTER 2022-08-23 14:26 | Emergency (ER) | payer OTHER, MEDICAID, SELFPAY ==
[2022-08-23] VITALS (28 sets, daily range): BP systolic 85–137; BP diastolic 46–84; PULSE 46–65; RESP 12–22; TEMP 36.6–36.7; O2SAT 96–100; BMI 24.0
--- NOTE | 2022-08-23 15:14 | ED_ITS ---
HPI - Weakness <Lachelle Pereira [facility] - Last Filed: 08/23/22 16:08> General Chief complaint: Weakness Stated complaint: +COVID,gen weakness,body aches Time Seen by Provider: 08/23/22 14:28 Source: patient Mode of arrival: EMS History of Present Illness HPI Narrative: This is a 71-year-old female presents to the emergency department 2 days after testing positive for COVID-19 for the 1st time and complains of generalized weakness today with low energy and fatigue. 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 She denies fevers, chills, states that she is had some increased congestion and overall feels achy. She denies any syncope or di zziness. Denies any focal weakness. Related Data Home Medications Medication Instructions Recorded Confirmed carisoprodol 350 mg tablet 350 mg PO TID ##0 03/12/11 11/18/21 albuterol sulfate 90 mcg/actuation 90 mcg IH PRN PRN Wheezing ##0 05/14/17 11/18/21 breath activated powder inhaler (ProAir RespiClick) oxycodone 15 mg tablet 15 mg PO Q6HR PRN Pain (Scale 07/31/20 11/18/21 Score 7-10) clonazepam 2 mg tablet 2 mg PO TID 04/17/21 11/18/21 duloxetine 30 mg capsule,delayed 60 mg PO BEDTIME 04/17/21 11/18/21 release gabapentin 300 mg capsule 600 mg PO BEDTIME 04/17/21 11/18/21 hydroxychloroquine 200 mg tablet 400 mg PO QAM 04/17/21 11/18/21 leflunomide 20 mg tablet 20 mg PO BEDTIME 04/17/21 11/18/21 levothyroxine 137 mcg tablet 137 mcg PO QAM 04/17/21 11/18/21 potassium chloride 10 mEq 10 meq PO QAM 04/17/21 11/18/21 tablet,extended release secukinumab 150 mg/mL subcutaneous 150 mg SUBCUT QWEEK 04/17/21 11/18/21 pen injector (Cosentyx Pen) tizanidine 4 mg tablet 4 mg PO TID PRN Muscle Spasm 04/17/21 11/18/21 cholecalciferol (vitamin D3) 1,250 1,250 mcg PO QWEEK 04/18/21 11/18/21 mcg (50,000 unit) capsule morphine 30 mg tablet,extended 30 mg PO TID 04/18/21 11/18/21 release zolpidem 5 mg tablet 5 mg PO BEDTIME unsomnia 04/18/21 11/18/21 ascorbate calcium (vitamin C) 500 500 mg PO BID 09/10/21 11/18/21 mg tablet ascorbic acid (vitamin C) 1,000 mg 500 mg PO BID 09/10/21 11/18/21 tablet topiramate 100 mg tablet 100 mg PO DAILY PRN 11/18/21 11/18/21 Previous Rx's Medication Instructions Recorded calcitonin (salmon) 200 1 spray intranasal (ALT) DAILY 11/26/21 unit/actuation nasal spray SACRAL FRACTURE #3.7 mL cetirizine 10 mg tablet 10 mg PO DAILY PRN congestion #20 08/23/22 tabs fluticasone propionate 50 1 spray intranasal DAILY #16 grams 08/23/22 mcg/actuation nasal spray,suspension (Flonase Allergy Relief) fluticasone propionate 50 1 spray intranasal DAILY PRN 08/23/22 mcg/actuation nasal congestion #16 grams spray,suspension (Flonase Allergy Relief) nirmatrelvir 300 mg (150 mg 2 tab PO QAM AND QPM 5 days #20 08/23/22 x2)-ritonavir 100 mg tablet,dose tabs pack(EUA) (Paxlovid) nirmatrelvir 300 mg (150 mg See Rx Instructions PO .COMPLEX 08/23/22 x2)-ritonavir 100 mg tablet,dose #30 ea pack(EUA) (Paxlovid) Allergies Allergy/AdvReac Type Severity Reaction Status Date / Time dexamethasone [DEXAMETHASONE] Allergy Severe blood clots Verified 11/18/21 11:10 aspirin Allergy Unknown Verified 11/18/21 11:10 cyclobenzaprine Allergy Unknown Verified 11/18/21 11:10 iodine Allergy Unknown Verified 11/18/21 11:10 pregabalin Allergy Unknown Verified 11/18/21 11:10 rofecoxib Allergy Unknown Verified 11/18/21 11:10 Review of Systems <TRINIDAD Becerra - Last Filed: 08/23/22 16:08> Review of Systems Narrative: Review of systems is negative for acute abnormalities unless otherwise noted in HPI Patient History <TRINIDAD Becerra - Last Filed: 08/23/22 16:08> Medical History Back pain Compression fracture of L1 lumbar vertebra Dextroscoliosis Frequent falls Gait instability Generalized weakness Heart murmur Lumbar stenosis with neurogenic claudication Osteoporosis Psoriatic arthritis T12 compression fracture Surgical History H/O hand surgery H/O neck surgery History of ankle surgery History of appendectomy Status post cervical spinal fusion Social History Smoking Status: Never smoker Smoking Status: Never smoker alcohol intake frequency: 0-2 drinks per day Substance Use Type: does not use Exam <TRINIDAD Becerra - Last Filed: 08/23/22 16:08> Narrative Exam Narrative: Reviewed vitals signs and nursing notes. General: cooperative, comfortable, in no acute distress, well groomed, thin, appears fatigued, nontoxic appearing HEENT: symmetrical facial expressions, moist mucous membranes Cardiovascular: regular rate and rhythm, no peripheral edema, warm extremities Respiratory: normal effort, able to speak in complete sentences, without wheezing, stridor, or abnormal breath sounds. No retractions or tachypnea. GI: abdomen soft, nontender to palpation, nondistended, without masses, rebound tenderness or exquisite tenderness with exam. MSK: moves all extremities, neurovascularly intact, no weakness, normal tone Skin: brisk capillary refill, without pallor or erythema Neuro: normal speech and cognition, A&O x3, ambulatory, clear speech Psych: mental status is grossly normal, congruent mood, normal affect, pleasant and cooperative Initial Vital Signs Initial Vital Signs: Vital Signs Pulse Rate 64 08/23/22 14:31 Blood Pressure 137/70 08/23/22 14:31 Pulse Oximetry 100 08/23/22 14:31 <Jeff Shipman MD - Last Filed: 08/24/22 07:07> Initial Vital Signs Initial Vital Signs: Vital Signs Pulse Rate 64 08/23/22 14:31 Blood Pressure 137/70 08/23/22 14:31 Pulse Oximetry 100 08/23/22 14:31 Course <TRINIDAD Becerra - Last Filed: 08/23/22 16:08> Orders Ordered: Discontinued Medications Acetaminophen (Acetaminophen 325 Mg Tablet) 975 mg PO NOW ONE Stop: 08/23/22 15:03 Last Admin: 08/23/22 15:18 Dose: 975 mg Documented By: ALVINO Sodium Chloride (Normal Saline 0.9%) 1,000 mls @ 1,000 mls/hr IV BOLUS ONE Stop: 08/23/22 16:01 Last Infusion: 08/23/22 16:49 Dose: 0 mls/hr Documented By: Admin: 08/23/22 15:18 Dose: 1,000 mls/hr Documented By: ALVINO Sodium Chloride (Normal Saline 0.9%) 1,000 mls @ 1,000 mls/hr IV BOLUS ONE Stop: 08/23/22 19:37 Last Infusion: 08/23/22 19:50 Dose: 0 mls/hr Documented By: Admin: 08/23/22 18:40 Dose: 1,000 mls/hr Documented By: ALVINO Loratadine (Loratadine 10 Mg Tablet) 10 mg PO NOW ONE Stop: 08/23/22 15:03 Last Admin: 08/23/22 15:18 Dose: 10 mg Documented By: ALVINO Vital Signs Vital signs: Vital Signs - 8 hr 08/23/22 14:38 08/23/22 14:31 08/23/22 14:31 Temperature 98 F Pulse Rate 61 64 Respiratory Rate 18 Blood Pressure 137/70 137/70 Pulse Oximetry 98 100 Oxygen Delivery Method Room Air 08/23/22 15:00 08/23/22 15:00 08/23/22 15:29 Temperature Pulse Rate 55 L 57 L Respiratory Rate 22 17 Blood Pressure 101/57 L Pulse Oximetry 97 99 Oxygen Delivery Method 08/23/22 15:30 Temperature Pulse Rate Respiratory Rate Blood Pressure 112/59 L Pulse Oximetry Oxygen Delivery Method <Jeff Shipman MD - Last Filed: 08/24/22 07:07> Orders Ordered: Discontinued Medications Acetaminophen (Acetaminophen 325 Mg Tablet) 975 mg PO NOW ONE Stop: 08/23/22 15:03 Last Admin: 08/23/22 15:18 Dose: 975 mg Documented By: ALVINO Sodium Chloride (Normal Saline 0.9%) 1,000 mls @ 1,000 mls/hr IV BOLUS ONE Stop: 08/23/22 16:01 Last Infusion: 08/23/22 16:49 Dose: 0 mls/hr Documented By: Admin: 08/23/22 15:18 Dose: 1,000 mls/hr Documented By: ALVINO Sodium Chloride (Normal Saline 0.9%) 1,000 mls @ 1,000 mls/hr IV BOLUS ONE Stop: 08/23/22 19:37 Last Infusion: 08/23/22 19:50 Dose: 0 mls/hr Documented By: Admin: 08/23/22 18:40 Dose: 1,000 mls/hr Documented By: ALVINO Loratadine (Loratadine 10 Mg Tablet) 10 mg PO NOW ONE Stop: 08/23/22 15:03 Last Admin: 08/23/22 15:18 Dose: 10 mg Documented By: ALVINO Vital Signs Vital signs: Vital Signs - 8 hr 08/23/22 14:38 08/23/22 14:31 08/23/22 14:31 Temperature 98 F Pulse Rate 61 64 Respiratory Rate 18 Blood Pressure 137/70 137/70 Pulse Oximetry 98 100 Oxygen Delivery Method Room Air 08/23/22 15:00 08/23/22 15:00 08/23/22 15:29 Temperature Pulse Rate 55 L 57 L Respiratory Rate 22 17 Blood Pressure 101/57 L Pulse Oximetry 97 99 Oxygen Delivery Method 08/23/22 15:30 Temperature Pulse Rate Respiratory Rate Blood Pressure 112/59 L Pulse Oximetry Oxygen Delivery Method MDM - Weakness <TRINIDAD Becerra - Last Filed: 08/23/22 16:08> Lab Data Result diagrams: 08/23/22 14:44 08/23/22 14:44 Labs: Lab Results 08/23/22 08/23/22 08/23/22 Range/Units 14:44 14:44 14:44 WBC 2.3 L (4.5-11.0) X10^3/uL RBC 4.02 (4.0-5.2) X10^6/uL Hgb 12.7 (12.0-16.0) g/dL Hct 37.6 (36-46) % MCV 93.6 (80-100) fL MCH 31.6 (26-34) PG MCHC 33.8 (30-36) % RDW 13.1 (11.6-14.8) % Plt Count 195 (150-400) X10^3/uL Neut % (Auto) 65.1 (50-75) % Lymph % (Auto) 15.9 L (25-40) % [place] % (Auto) 17.2 H (3-14) % Eos % (Auto) 0.6 L (2-4) % Baso % (Auto) 1.2 (0-2) % Neut # (Auto) 1500 (0125-5443) /uL Lymph # (Auto) 400 L (5911-9761) /uL [place] # (Auto) 400 (0-900) /uL Eos # (Auto) 0 (0-450) /uL Baso # (Auto) 0 (0-100) /uL Sodium 134 L (137-145) mmol/L Potassium 3.5 (3.4-5.1) mmol/L Chloride 98 (98-107) mmol/L Carbon Dioxide 25 (22-32) mmol/L BUN 9 (7-17) mg/dL Creatinine 0.48 L (0.52-1.04) mg/dL Estimated GFR > 60 (>60) mL/min BUN/Creatinine Ratio 18.8 (6-22) Glucose 114 H (80-110) mg/dL Lactate 0.9 (0.7-2.1) mmol/L Calcium 8.8 (8.4-10.2) mg/dL Magnesium 1.9 (1.6-2.3) mg/dL Total Bilirubin 0.5 (0.2-1.3) mg/dL AST 49 H (14-36) IU/L ALT 26 (<35) IU/L Alkaline Phosphatase 88 (38-126) U/L Total Protein 7.8 (6.3-8.2) g/dL Albumin 4.5 (3.5-5.0) g/dL Globulin 3.3 (1.7-4.1) g/dL Albumin/Globulin Ratio 1.4 (1.0-2.8) Procalcitonin (<0.5) ng/mL Urine Color Urine Appearance Urine pH (4.5-8.0) Ur Specific [place] (1.000-1.035) Urine Protein (Negative) Urine Glucose (UA) (Negative) g/dL Urine Ketones (NEGATIVE) Urine Occult Blood (Negative) Urine Nitrate (Negative) Urine Bilirubin (NEGATIVE) Urine Urobilinogen (0.2) E.U./dL Ur Leukocyte Esterase (NEGATIVE) Urine RBC (0-5/HPF) Urine WBC (0-5/HPF) Ur Squamous Epith Cells (0-5/HPF) Urine Bacteria (None) Ur Culture Indicated? 08/23/22 08/23/22 08/23/22 Range/Units 14:44 18:03 19:18 WBC (4.5-11.0) X10^3/uL RBC (4.0-5.2) X10^6/uL Hgb (12.0-16.0) g/dL Hct (36-46) % MCV (80-100) fL MCH (26-34) PG MCHC (30-36) % RDW (11.6-14.8) % Plt Count (150-400) X10^3/uL Neut % (Auto) (50-75) % Lymph % (Auto) (25-40) % [place] % (Auto) (3-14) % Eos % (Auto) (2-4) % Baso % (Auto) (0-2) % Neut # (Auto) (5354-5024) /uL Lymph # (Auto) (7814-0032) /uL [place] # (Auto) (0-900) /uL Eos # (Auto) (0-450) /uL Baso # (Auto) (0-100) /uL Sodium (137-145) mmol/L Potassium (3.4-5.1) mmol/L Chloride (98-107) mmol/L Carbon Dioxide (22-32) mmol/L BUN (7-17) mg/dL Creatinine (0.52-1.04) mg/dL Estimated GFR (>60) mL/min BUN/Creatinine Ratio (6-22) Glucose (80-110) mg/dL Lactate 0.8 (0.7-2.1) mmol/L Calcium (8.4-10.2) mg/dL Magnesium (1.6-2.3) mg/dL Total Bilirubin (0.2-1.3) mg/dL AST (14-36) IU/L ALT (<35) IU/L Alkaline Phosphatase (38-126) U/L Total Protein (6.3-8.2) g/dL Albumin (3.5-5.0) g/dL Globulin (1.7-4.1) g/dL Albumin/Globulin Ratio (1.0-2.8) Procalcitonin 0.05 (<0.5) ng/mL Urine Color Yellow Urine Appearance Clear Urine pH 6.5 (4.5-8.0) Ur Specific [place] 1.010 (1.000-1.035) Urine Protein Negative (Negative) Urine Glucose (UA) Negative (Negative) g/dL Urine Ketones Negative (NEGATIVE) Urine Occult Blood Negative (Negative) Urine Nitrate Negative (Negative) Urine Bilirubin Negative (NEGATIVE) Urine Urobilinogen 0.2 (0.2) E.U./dL Ur Leukocyte Esterase Negative (NEGATIVE) Urine RBC None seen (0-5/HPF) Urine WBC 0-1/hpf (0-5/HPF) Ur Squamous Epith Cells None seen (0-5/HPF) Urine Bacteria None seen (None) Ur Culture Indicated? Cult not indicated MDM Narrative Medical decision making narrative: This is a 71-year-old female returns to the emergency department 2 days after testing positive for COVID-19 and complains of worsening weakness, fatigue, congestion and aches. She does not have any focal weakness, COVID (+) on day [2] of symptoms without hypoxia, respiratory distress, dehydration, or focal exam to suggest secondary bacterial infection. Patient is chronically immunosuppressed, has multiple allergies, checked interactions for Paxlovid with her medications and opted to treat her with it. Patient does not take Tylenol or ibuprofen at home, encouraged her to do so for her muscle aches and gave her a prescription of Zyrtec and Flonase to use for her congestion. She does not have any systemic symptoms of illness today, she was given 1 L of IV fluids for subjective dehydration, loratadine for her congestion, and Tylenol for pain. Discussed CDC guidelines for quarantine, mask wearing, physical distancing, and infection prevention measures such as frequent handwashing. Discussed supportive treatments: Tylenol/Motrin as needed for pain/fever. OTC decongestant medications and/or antihistamines for symptomatic relief. Maintain adequate fluid intake. Follow-up with PCP as directed. Return to clinic/ER instructions discussed for new, not improving, or worsening symptoms. All questions answered. <Jeff Shipman MD - Last Filed: 08/24/22 07:07> Lab Data Labs: Lab Results 08/23/22 08/23/22 08/23/22 Range/Units 14:44 14:44 14:44 WBC 2.3 L (4.5-11.0) X10^3/uL RBC 4.02 (4.0-5.2) X10^6/uL Hgb 12.7 (12.0-16.0) g/dL Hct 37.6 (36-46) % MCV 93.6 (80-100) fL MCH 31.6 (26-34) PG MCHC 33.8 (30-36) % RDW 13.1 (11.6-14.8) % Plt Count 195 (150-400) X10^3/uL Neut % (Auto) 65.1 (50-75) % Lymph % (Auto) 15.9 L (25-40) % [place] % (Auto) 17.2 H (3-14) % Eos % (Auto) 0.6 L (2-4) % Baso % (Auto) 1.2 (0-2) % Neut # (Auto) 1500 (8017-8658) /uL Lymph # (Auto) 400 L (5513-6687) /uL [place] # (Auto) 400 (0-900) /uL Eos # (Auto) 0 (0-450) /uL Baso # (Auto) 0 (0-100) /uL Sodium 134 L (137-145) mmol/L Potassium 3.5 (3.4-5.1) mmol/L Chloride 98 (98-107) mmol/L Carbon Dioxide 25 (22-32) mmol/L BUN 9 (7-17) mg/dL Creatinine 0.48 L (0.52-1.04) mg/dL Estimated GFR > 60 (>60) mL/min BUN/Creatinine Ratio 18.8 (6-22) Glucose 114 H (80-110) mg/dL Lactate 0.9 (0.7-2.1) mmol/L Calcium 8.8 (8.4-10.2) mg/dL Magnesium 1.9 (1.6-2.3) mg/dL Total Bilirubin 0.5 (0.2-1.3) mg/dL AST 49 H (14-36) IU/L ALT 26 (<35) IU/L Alkaline Phosphatase 88 (38-126) U/L Total Protein 7.8 (6.3-8.2) g/dL Albumin 4.5 (3.5-5.0) g/dL Globulin 3.3 (1.7-4.1) g/dL Albumin/Globulin Ratio 1.4 (1.0-2.8) Procalcitonin (<0.5) ng/mL Urine Color Urine Appearance Urine pH (4.5-8.0) Ur Specific [place] (1.000-1.035) Urine Protein (Negative) Urine Glucose (UA) (Negative) g/dL Urine Ketones (NEGATIVE) Urine Occult Blood (Negative) Urine Nitrate (Negative) Urine Bilirubin (NEGATIVE) Urine Urobilinogen (0.2) E.U./dL Ur Leukocyte Esterase (NEGATIVE) Urine RBC (0-5/HPF) Urine WBC (0-5/HPF) Ur Squamous Epith Cells (0-5/HPF) Urine Bacteria (None) Ur Culture Indicated? 08/23/22 08/23/22 08/23/22 Range/Units 14:44 18:03 19:18 WBC (4.5-11.0) X10^3/uL RBC (4.0-5.2) X10^6/uL Hgb (12.0-16.0) g/dL Hct (36-46) % MCV (80-100) fL MCH (26-34) PG MCHC (30-36) % RDW (11.6-14.8) % Plt Count (150-400) X10^3/uL Neut % (Auto) (50-75) % Lymph % (Auto) (25-40) % [place] % (Auto) (3-14) % Eos % (Auto) (2-4) % Baso % (Auto) (0-2) % Neut # (Auto) (5569-3844) /uL Lymph # (Auto) (0965-6783) /uL [place] # (Auto) (0-900) /uL Eos # (Auto) (0-450) /uL Baso # (Auto) (0-100) /uL Sodium (137-145) mmol/L Potassium (3.4-5.1) mmol/L Chloride (98-107) mmol/L Carbon Dioxide (22-32) mmol/L BUN (7-17) mg/dL Creatinine (0.52-1.04) mg/dL Estimated GFR (>60) mL/min BUN/Creatinine Ratio (6-22) Glucose (80-110) mg/dL Lactate 0.8 (0.7-2.1) mmol/L Calcium (8.4-10.2) mg/dL Magnesium (1.6-2.3) mg/dL Total Bilirubin (0.2-1.3) mg/dL AST (14-36) IU/L ALT (<35) IU/L Alkaline Phosphatase (38-126) U/L Total Protein (6.3-8.2) g/dL Albumin (3.5-5.0) g/dL Globulin (1.7-4.1) g/dL Albumin/Globulin Ratio (1.0-2.8) Procalcitonin 0.05 (<0.5) ng/mL Urine Color Yellow Urine Appearance Clear Urine pH 6.5 (4.5-8.0) Ur Specific [place] 1.010 (1.000-1.035) Urine Protein Negative (Negative) Urine Glucose (UA) Negative (Negative) g/dL Urine Ketones Negative (NEGATIVE) Urine Occult Blood Negative (Negative) Urine Nitrate Negative (Negative) Urine Bilirubin Negative (NEGATIVE) Urine Urobilinogen 0.2 (0.2) E.U./dL Ur Leukocyte Esterase Negative (NEGATIVE) Urine RBC None seen (0-5/HPF) Urine WBC 0-1/hpf (0-5/HPF) Ur Squamous Epith Cells None seen (0-5/HPF) Urine Bacteria None seen (None) Ur Culture Indicated? Cult not indicated Discharge Plan Departure Patient Disposition: Home Clinical Impression: COVID-19 Instructions: COVID-19 Activity Restrictions/Additional Instructions: *You have been diagnosed with COVID and dehydration. Please ensure that you are eating and drinking, this will help provide energy for you. Please take your other medications as prescribed and add Paxlovid morning and night for the next 5 days. Please take Tylenol every 6 hours as needed for pain, ibuprofen is okay as well and this will help with your inflammation. Hope you start feeling better soon, return to the emergency department for new or worsening symptoms, this medication that you will start today should reduce your symptoms in severity and how long your sick. I hope you feel better soon *What to do: *Please continue to take your regular medications as directed. [x ] New medication prescriptions sent to your pharmacy: [ [facility]] [ ] New medication written as a paper prescription [ ] No new medications given *Please follow up with your primary care provider in 2-3 days, call for an appointment. Let them know you were seen in the Emergency Department and that we asked that you be seen for follow-up. We will electronically transmit a record of today's note if your PCP is in our system *If you do not have a primary care provider please contact [phone] to establish care with one of the [facility] primary care providers. *Return to Emergency Department if you should have any new, worsening, or concerning symptoms, such as [fever greater than 101F, chills, worsening pain, persistent vomiting or other bothersome symptoms]. Prescriptions: New Paxlovid (EUA) 300 mg (150 mg x 2)-100 mg tablets,dose pack See Rx Instructions .ROUTE .COMPLEX Qty: 30 0RF Rx Instructions: take TWO 150 mg tablets of nirmatrelvir with ONE 100 mg tablet of ritonavir twice daily for 5 days cetirizine 10 mg tablet 10 mg PO DAILY PRN (Reason: congestion) Qty: 20 0RF fluticasone propionate [Flonase Allergy Relief] 50 mcg/actuation spray,suspension 1 spray intranasal DAILY PRN (Reason: congestion) Qty: 16 0RF Rx Instructions: administer into each nostril Paxlovid (EUA) 300 mg (150 mg x 2)-100 mg tablets,dose pack 2 tab PO QAM AND QPM 5 Days Qty: 20 0RF fluticasone propionate [Flonase Allergy Relief] 50 mcg/actuation spray,suspension 1 spray intranasal DAILY Qty: 16 0RF Rx Instructions: administer into each nostril No Action carisoprodol 350 MG tablet 350 mg PO TID Qty: 0 Label Comments: Pt states she takes tid every day x 20 years. ProAir RespiClick 90 MCG aerosol powdr breath activated 90 mcg IH PRN PRN (Reason: Wheezing) Qty: 0 calcitonin (salmon) 200 unit/actuation spray,non-aerosol 1 spray intranasal (ALT) DAILY Qty: 3.7 1RF oxycodone 15 mg tablet 15 mg PO Q6HR PRN (Reason: Pain (Scale Score 7-10)) levothyroxine 137 mcg tablet 137 mcg PO QAM tizanidine 4 mg tablet 4 mg PO TID PRN (Reason: Muscle Spasm) potassium chloride 10 mEq tablet extended release 10 meq PO QAM leflunomide 20 mg tablet 20 mg PO BEDTIME Label Comments: take 1 tablet by mouth once daily clonazepam 2 mg tablet 2 mg PO TID gabapentin 300 mg capsule 600 mg PO BEDTIME Label Comments: take 2 capsules by mouth once daily hydroxychloroquine 200 mg tablet 400 mg PO QAM duloxetine 30 mg capsule,delayed release(DR/EC) 60 mg PO BEDTIME Cosentyx Pen 150 mg/mL pen injector 150 mg SUBCUT QWEEK Label Comments: STARTER INJECT 150MG SUBCUTANEOUSLY WEEKLY FOR 5 WEEKS, THEN START MAINTENANCE DOSING EVERY 28 DAYS morphine 30 mg tablet extended release 30 mg PO TID zolpidem 5 mg Tablet 5 mg PO BEDTIME cholecalciferol (vitamin D3) 1,250 mcg (50,000 unit) Capsule 1,250 mcg PO QWEEK topiramate 100 mg tablet 100 mg PO DAILY PRN Label Comments: take 1 tablet by mouth twice a day ascorbic acid (vitamin C) 1,000 mg tablet 500 mg PO BID ascorbate calcium (vitamin C) 500 mg tablet 500 mg PO BID Referrals: Ellie Blanton PA-C [Primary Care Provider] - Visit Report Forms: Patient Portal/API <Jeff Shipman MD - Last Filed: 08/24/22 07:07> [facility] I was immediately available in the department for consultation. ?This documentation has been reviewed and I agree with assessment and plan. Supervised by Jeff Shipman MD
[2022-08-23] MEDS: LORATADINE 10 MG TABLET PO (15:18)
[2022-08-23] MEDS: SODIUM CHLORIDE 0.9% 1,000 ML 1000 ML IV ×2 (15:18→18:40)
[2022-08-23] MEDS: ACETAMINOPHEN 325 MG TABLET 975 MG PO (15:18)
--- NOTE | 2022-08-23 17:39 | DI.RAD.S_ITS ---
PROCEDURE: XR CHEST 1V INDICATIONS: short of breath TECHNIQUE: One view of the chest was acquired. COMPARISON: [facility], CR, XR CHEST 1V, 04/17/2021, 20:11. [facility], CR, XR CHEST 2V, 07/31/2020, 14:00. FINDINGS: Surgical changes and devices: None. Lungs and pleura: No pleural effusion. Mild right perihilar and basal opacities. Mediastinum: Suspected hiatal hernia again seen. Cardiomegaly again seen. Bones and chest wall: Scoliosis as before. IMPRESSION: Mild right perihilar and right base opacities, possibly atelectasis or early airspace disease. Consider future imaging surveillance to assess for resolution. Dictated by: Derrick Rodriguez M.D. on 08/23/2022 at 18:48 Approved by: Derrick Rodriguez M.D. on 08/23/2022 at 18:49
--- NOTE | 2022-08-23 17:44 | PC.NURSE ---
Provider notified that pt unable to urinate when up to bed side commode. Also informed provider that pt became dizzy and shaking with transfer (Orthostatic BP negative)though after in bed for 10-15 minutes BP did dip lower 90s/50s. New lab orders/cath order received.
[2022-08-23 17:46] LABS: Add Manual Diff / Slide Review NO; Basophils Absolute Auto 0 /uL (0-100); Basophils Percent Auto 1.2 % (0-2); Eosinophils Absolute Auto 0 /uL (0-450); Eosinophils Percent Auto 0.6 % (2-4); Hematocrit 37.6 % (36-46); Hemoglobin 12.7 g/dL (12.0-16.0); Lymphocytes Absolute Auto 400 /uL (1100-4500); Lymphocytes Percent Auto 15.9 % (25-40); Mean Corpuscular HGB Conc 33.8 % (30-36); Mean Corpuscular Hemoglobin 31.6 PG (26-34); Mean Corpuscular Volume 93.6 fL (80-100); Monocytes Absolute Auto 400 /uL (0-900); Monocytes Percent Auto 17.2 % (3-14); Neutrophils Absolute Auto 1500 /uL (1500-7000); Neutrophils Percent Auto 65.1 % (50-75); Platelet Count 195 X10^3/uL (150-400); Red Blood Cell Count 4.02 X10^6/uL (4.0-5.2); Red Cell Distribution Width 13.1 % (11.6-14.8); White Blood Cell Count 2.3 X10^3/uL (4.5-11.0)
[2022-08-23 17:52] LABS: Alanine Aminotransferase 26 IU/L (<35); Albumin 4.5 g/dL (3.5-5.0); Albumin Globulin Ratio 1.4 (1.0-2.8); Alkaline Phosphatase 88 U/L (38-126); Aspartate Aminotransferase 49 IU/L (14-36); BUN Creatinine Ratio 18.8 (6-22); Bilirubin Total 0.5 mg/dL (0.2-1.3); Blood Urea Nitrogen 9 mg/dL (7-17); Calcium 8.8 mg/dL (8.4-10.2); Carbon Dioxide 25 mmol/L (22-32); Chloride 98 mmol/L (98-107); Estimated Glomerular Filt Rate > 60 mL/min (>60); Globulin 3.3 g/dL (1.7-4.1); Glucose 114 mg/dL (80-110); HEMOLYSIS < 15 (0-50); Magnesium 1.9 mg/dL (1.6-2.3); Potassium 3.5 mmol/L (3.4-5.1); Sodium 134 mmol/L (137-145); Total Protein 7.8 g/dL (6.3-8.2)
[2022-08-23 18:27] LABS: Appearance Urine UA CLEAR; Bilirubin Urine UA NEGATIVE (NEGATIVE); Color Urine UA YELLOW; Glucose Urine UA NEGATIVE (Negative); Ketones Urine UA NEGATIVE (NEGATIVE); Leukocyte Esterase Urine UA NEGATIVE (NEGATIVE); Nitrite Urine UA NEGATIVE (Negative); Occult Blood Urine UA NEGATIVE (Negative); Protein Urine UA NEGATIVE (Negative); Urobilinogen Urine UA 0.2 E.U./dL (0.2)
[2022-08-23 18:31] LABS: pH Urine UA 6.5 (4.5-8.0)
[2022-08-23 18:50] LABS: Lactate (Lactic Acid) 0.9 mmol/L (0.7-2.1)
[2022-08-23 19:19] LABS: Bacteria Urine None Seen; Culture Indicated Urine Cult Not Indicated; RBC Urine None Seen (0-5/HPF); Squamous Epithelial Cell Urine None Seen (0-5/HPF); WBC Urine 0-1/HPF (0-5/HPF)
[2022-08-23 19:20] LABS: Procalcitonin 0.05 ng/mL (<0.5)
[2022-08-23 19:47] LABS: Lactate (Lactic Acid) 0.8 mmol/L (0.7-2.1)
== END 2022-08-23 21:08 | disposition home or self-care (01) ==
PROVIDERS: Emergency Medicine; Emergency Provider Nurse Practitioner Critical Care Medicine; Family Provider Internal Medicine; PCP Physician Assistant
DX: U07.1 COVID-19 (principal)
CPT/HCPCS: 36415; 51701; 71045; 80053; 81001; 83605; 83735; 84145; 85025; 96360; 96361; 99284

== ENCOUNTER → 2022-12-11 12:37 | Outpatient (CLI) | payer OTHER, MEDICAID, SELFPAY ==
[2022-12-11 13:28] LABS: Add Manual Diff / Slide Review NO; Basophils Absolute Auto 0 /uL (0-100); Basophils Percent Auto 0.8 % (0-2); Eosinophils Absolute Auto 100 /uL (0-450); Eosinophils Percent Auto 2.3 % (2-4); Hemoglobin 12.7 g/dL (12.0-16.0); Lymphocytes Absolute Auto 1100 /uL (1100-4500); Lymphocytes Percent Auto 23.8 % (25-40); Mean Corpuscular HGB Conc 33.3 % (30-36); Mean Corpuscular Hemoglobin 31.4 PG (26-34); Mean Corpuscular Volume 94.3 fL (80-100); Monocytes Absolute Auto 400 /uL (0-900); Monocytes Percent Auto 8.2 % (3-14); Neutrophils Absolute Auto 3100 /uL (1500-7000); Neutrophils Percent Auto 64.9 % (50-75); Platelet Count 233 X10^3/uL (150-400); Red Blood Cell Count 4.03 X10^6/uL (4.0-5.2); Red Cell Distribution Width 13.7 % (11.6-14.8); White Blood Cell Count 4.8 X10^3/uL (4.5-11.0)
[2022-12-11 13:43] LABS: Erythrocyte Sedimentation Rate 10 MM/HR (0-20)
[2022-12-11 13:46] LABS: Alanine Aminotransferase 15 IU/L (<35); Albumin 4.3 g/dL (3.5-5.0); Albumin Globulin Ratio 1.7 (1.0-2.8); Alkaline Phosphatase 63 U/L (38-126); Aspartate Aminotransferase 24 IU/L (14-36); BUN Creatinine Ratio 25.5 (6-22); Bilirubin Total 0.4 mg/dL (0.2-1.3); Blood Urea Nitrogen 12 mg/dL (7-17); C-Reactive Protein Quant < 0.5 mg/dL (<1.0); Calcium 9.2 mg/dL (8.4-10.2); Carbon Dioxide 28 mmol/L (22-32); Chloride 104 mmol/L (98-107); Estimated Glomerular Filt Rate > 60 mL/min (>60); Globulin 2.6 g/dL (1.7-4.1); Glucose 112 mg/dL (80-110); HEMOLYSIS < 15 (0-50); Sodium 139 mmol/L (137-145); Total Protein 6.9 g/dL (6.3-8.2)
== END ==
PROVIDERS: Family Provider Internal Medicine; PCP Physician Assistant; Referring Provider Internal Medicine Rheumatology; Visit Provider Internal Medicine Rheumatology
DX: L40.50 Arthropathic psoriasis, unspecified (principal)
CPT/HCPCS: 36415; 80053; 85025; 85651; 86140

== ENCOUNTER → 2023-01-07 16:28 | Outpatient (CLI) | payer OTHER, MEDICAID, SELFPAY ==
[2023-01-07 18:39] LABS: Cholesterol 177 mg/dL (140-199); HDL Cholesterol 53 mg/dL (40-60); LDL Cholesterol Calculated 102 mg/dL (<100); Triglycerides 108 mg/dL (35-150)
[2023-01-07 19:04] LABS: Thyroid Stimulating Hormone 9.68 uIU/mL (0.47-4.68)
== END ==
PROVIDERS: Family Provider Internal Medicine; PCP Physician Assistant; Referring Provider Internal Medicine; Visit Provider Internal Medicine
DX: I47.1 Supraventricular tachycardia (principal)
CPT/HCPCS: 36415; 80061; 84443

== ENCOUNTER → 2023-01-30 13:37 | Outpatient (CLI) | payer OTHER, MEDICAID, SELFPAY ==
--- NOTE | 2023-01-30 | DI.MG.S_ITS ---
BILATERAL DIGITAL SCREENING MAMMOGRAM 3D/2D WITH CAD: 01/30/2023 CLINICAL: Routine screening. Comparison is made to exam dated: 10/11/2010 mammogram - outside location. Both breasts are extremely dense, which lowers the sensitivity of mammography (category d />75% glandular tissue). Current study was also evaluated with a Computer Aided Detection (CAD) system. No significant masses, calcifications, or other findings are seen in either breast. There has been no significant interval change. IMPRESSION: NEGATIVE There is no mammographic evidence of malignancy. A 1 year screening mammogram is recommended. Based on the Tyrer Cuzick model (a risk assessment model) the patient's lifetime risk is 9.0% and her 10 year risk is 6.7%. According to the ACR, ACS, and NCCN guidelines, an annual breast MRI exam along with mammogram is recommended if the patient's lifetime risk is 20% or greater. This exam was interpreted at Station ID: [id number]. NOTE: For mammograms, a report in lay terms will be sent to the patient. Approximately 15% of breast malignancies will not be visualized mammographically. In the management of a palpable breast mass, a negative mammogram must not discourage biopsy of a clinically suspicious lesion. Electronically Signed By: Derrick greenwood/asha:01/30/2023 16:37:27 letter sent: Normal Exam ACR BI-RADS Category 1: Negative [id number]
[2023-01-30 14:22] LABS: Estimated Glomerular Filt Rate > 60 mL/min (>60)
== END ==
PROVIDERS: Specialist; Family Provider Internal Medicine; PCP Physician Assistant; Referring Provider Physician Assistant; Visit Provider Physician Assistant
DX: Z12.31 Encounter for screening mammogram for malignant neoplasm of breast (principal); R91.8 Other nonspecific abnormal finding of lung field
CPT/HCPCS: 36415; 77063; 77067; 82565

== ENCOUNTER → 2023-01-31 11:12 | Outpatient (CLI) | payer OTHER, MEDICAID, SELFPAY ==
--- NOTE | 2023-01-31 11:14 | DI.CT.S_ITS ---
PROCEDURE: CT CHEST W CON INDICATIONS: Abnormal finding of lung field/Routine screening TECHNIQUE: After the administration of intravenous contrast, 5 mm thick sections acquired from the pulmonary apices to the posterior costophrenic angles. 1 mm axial lung, 5 mm thick coronal and sagittal reformats and 7 mm axial MIP were acquired. For radiation dose reduction, the following was used: automated exposure control, adjustment of mA and/or kV according to patient size. COMPARISON: [facility], CT, CT ABDOMEN PELVIS W CON, 04/17/2021, 19:00. [facility], CT, CT SHOULDER RIGHT WITHOUT CONTRAST, 01/26/2023, 12:29. FINDINGS: Image quality: Excellent. Lungs and pleura: Along the anterior basal aspect of the right upper lobe there is traction bronchiectasis with tethering to the pleura suggestive of prior scar with slight nodularity measuring 4.5 by 3.8 x 9.5 mm. A few tiny left costophrenic angle 2 mm pulmonary nodules. No acute air space opacities. No pleural effusions or pneumothorax. Central and peripheral airways are patent and normal in caliber. Mediastinum: Heart size is normal. No pericardial effusion. No mediastinal or hilar adenopathy by size criteria. Pulmonary arteries measures 3.4 cm, suggestive of pulmonary hypertension. The endo ascending aorta is normal caliber. Patulous esophagus. Large hiatal hernia which exerts mass effect upon the aorta. Bones and chest wall: No suspicious bony lesions. No cervical chain curvature of thoracic spine. No vertebral body compression fractures. No axillary or supraclavicular adenopathy by size criteria. Thyroid gland Abdomen: Visualized upper abdominal solid organs appear normal. Upper abdominal bowel loops are normal in caliber. IMPRESSION: 1. Spiculated subpleural nodule averaging 6 mm in size with traction bronchiectasis is favored to represent scar however without comparisons cannot establish chronicity. Consider follow-up CT chest in 6 months. 2. No mediastinal lymphadenopathy. 3. Pulmonary arteries measures 3.4 cm consistent with pulmonary hypertension. 4. Large hiatal hernia with patulous esophagus. Dictated by: Jeff Villafana M.D. on 01/31/2023 at 11:11 Approved by: Jeff Villafana M.D. on 01/31/2023 at 11:27
== END ==
PROVIDERS: Family Provider Internal Medicine; PCP Physician Assistant; Referring Provider Physician Assistant; Visit Provider Physician Assistant
DX: R91.8 Other nonspecific abnormal finding of lung field; K44.9 Diaphragmatic hernia without obstruction or gangrene; J47.9 Bronchiectasis, uncomplicated
CPT/HCPCS: 71260; Q9967

== ENCOUNTER → 2023-09-10 16:01 | Outpatient (CLI) | payer OTHER, MEDICAID, SELFPAY ==
--- NOTE | 2023-09-10 | DI.CT.S_ITS ---
PROCEDURE: CT CHEST WO CON INDICATIONS: Follow up on nodule from January 2023 CT TECHNIQUE: Noncontrast 5 mm thick sections acquired from the pulmonary apices to the posterior costophrenic angles. 1 mm lung window, 5 mm thick coronal and sagittal and 7 mm axial MIP reformats were then acquired. For radiation dose reduction, the following was used: automated exposure control, adjustment of mA and/or kV according to patient size. COMPARISON: [facility], CT, CT CHEST W [facility], 01/31/2023, 11:21. FINDINGS: Image quality: Diagnostic. Lungs and pleura: Compared to CT dated January 31, 2023, no new or enlarging solid pulmonary nodules or consolidation. A few scattered solid pulmonary nodules measuring up to 3 mm (for example, 3/174, 58). Slightly decreased consolidative appearance of the anterior basal aspect of the right upper lobe with traction bronchiectasis (3/126), previously 3/138). No pleural effusions or pneumothorax. Central and peripheral airways are patent and normal in caliber. Mediastinum: Heart size is normal. No pericardial effusion. No mediastinal adenopathy by size criteria. Thoracic aorta is normal in size with mild calcification. Main pulmonary artery remains enlarged, stable. Esophagus is mildly patulous. Large hiatal hernia, stable. Bones and chest wall: No suspicious bony lesions. No vertebral body compression fractures. No axillary or supraclavicular adenopathy by size criteria. Marked multilevel degenerative changes of the thoracolumbar spine at T12-L1. Remainder of the spine demonstrates moderate multilevel degenerative changes. S-shaped curvature of the spine with dextroconvex curvature of the lumbar spine and levoconvex curvature of the thoracolumbar spine. Remote bilateral rib fractures. Partially visualized right shoulder arthroplasty. No thyroid nodules which require sonographic follow up, per consensus guidelines. Upper Abdomen: Visualized upper abdominal solid organs and bowel loops demonstrate no acute findings in the absence of contrast. IMPRESSION: 1. Compared to CT chest dated January 31, 2023, no new or enlarging solid pulmonary nodule or consolidation. 2. Slightly decreased consolidative appearance of the anterior basal aspect of the right upper lobe with traction bronchiectasis, most compatible with atelectasis/scar. 3. Main pulmonary artery remains enlarged which may be seen in the setting of pulmonary hypertension. 4. Large hiatal hernia with patulous esophagus. Dictated by: Chastity Frazier M.D. on 09/10/2023 at 20:27 Approved by: Chastity Frazier M.D. on 09/10/2023 at 20:42
== END ==
PROVIDERS: Family Provider Internal Medicine; PCP Physician Assistant; Referring Provider Physician Assistant; Visit Provider Physician Assistant
DX: R91.8 Other nonspecific abnormal finding of lung field (principal); K44.9 Diaphragmatic hernia without obstruction or gangrene
CPT/HCPCS: 71250

== ENCOUNTER → 2023-11-06 15:49 | Outpatient (CLI) | payer OTHER, MEDICAID, SELFPAY ==
[2023-11-06 16:30] LABS: Alanine Aminotransferase 23 IU/L (<35); Albumin 4.2 g/dL (3.5-5.0); Albumin Globulin Ratio 1.4 (1.0-2.8); Alkaline Phosphatase 90 U/L (38-126); Aspartate Aminotransferase 29 IU/L (14-36); BUN Creatinine Ratio 20.4 (6-22); Bilirubin Total 0.5 mg/dL (0.2-1.3); Blood Urea Nitrogen 11 mg/dL (7-17); Calcium 9.6 mg/dL (8.4-10.2); Carbon Dioxide 25 mmol/L (22-32); Chloride 105 mmol/L (98-107); Estimated Glomerular Filt Rate > 60 mL/min (>60); Glucose 105 mg/dL (80-110); HEMOLYSIS < 15 (0-50); Potassium 4.1 mmol/L (3.4-5.1); Sodium 137 mmol/L (137-145); Total Protein 7.2 g/dL (6.3-8.2)
[2023-11-06 16:39] LABS: Hematocrit 37.2 % (36-46); Hemoglobin 12.4 g/dL (12.0-16.0); Mean Corpuscular HGB Conc 33.4 % (30-36); Mean Corpuscular Hemoglobin 31.1 PG (26-34); Mean Corpuscular Volume 93.2 fL (80-100); Platelet Count 252 X10^3/uL (150-400); Red Blood Cell Count 3.99 X10^6/uL (4.0-5.2); Red Cell Distribution Width 12.9 % (11.6-14.8); White Blood Cell Count 3.7 X10^3/uL (4.5-11.0)
== END ==
PROVIDERS: Family Provider Internal Medicine; PCP Physician Assistant; Referring Provider Physician Assistant; Visit Provider Physician Assistant
DX: I10 Essential (primary) hypertension (principal); R32 Unspecified urinary incontinence; R42 Dizziness and giddiness
CPT/HCPCS: 36415; 80053; 85027

== ENCOUNTER → 2023-12-04 12:49 | Outpatient (CLI) | payer OTHER, MEDICAID, SELFPAY ==
--- NOTE | 2023-12-04 12:53 | DI.RAD.S_ITS ---
PROCEDURE: XR CHEST 2V INDICATIONS: Other forms of dyspnea TECHNIQUE: 2 views of the chest were acquired. COMPARISON: [facility], CT, CT CHEST WO CON, 09/10/2023, 16:08. [facility], CR, XR CHEST 1V, 08/23/2022, 18:08. [facility], CR, XR CHEST 1V, 04/17/2021, 20:11. FINDINGS: Surgical changes and devices: ACDF and right shoulder arthroplasty. Lungs and pleura: Lungs are clear. No pleural effusions or pneumothorax. Mediastinum: Large hiatal hernia. Heart size is normal. Bones and chest wall: No suspicious bony abnormalities. Soft tissues appear unremarkable. IMPRESSION: Large hiatal hernia. Dictated by: Kodak Douglas M.D. on 12/04/2023 at 13:51 Approved by: Kodak Douglas M.D. on 12/04/2023 at 14:06
== END ==
LOC: RAD 12:52
PROVIDERS: Family Provider Internal Medicine; PCP Physician Assistant; Referring Provider Physician Assistant; Visit Provider Physician Assistant
DX: R06.09 Other forms of dyspnea (principal); R91.8 Other nonspecific abnormal finding of lung field; K44.9 Diaphragmatic hernia without obstruction or gangrene
CPT/HCPCS: 71046

== ENCOUNTER → 2024-02-04 11:56 | Outpatient (CLI) | payer OTHER, MEDICAID, SELFPAY ==
--- NOTE | 2024-02-04 11:57 | DI.CT.S_ITS ---
PROCEDURE: CT CERVICAL SPINE WO CON INDICATIONS: Radiculopathy, cervical region TECHNIQUE: Noncontrast 3 mm thick sections acquired from the skull base to the T4 level. Sagittal and coronal reformats were then constructed. For radiation dose reduction, the following was used: automated exposure control, adjustment of mA and/or kV according to patient size. COMPARISON: [facility], MR, MR CERVICAL SPINE WO CON, 02/24/2020, 15:13. [facility], CT, CT CERVICAL SPINE WO CON, 04/03/2017, 15:51. FINDINGS: Image quality: Excellent. Bones: No fractures or dislocations. Visualized superior ribs are intact. There is at least moderate disc space narrowing seen at C3-C4. Post erected endplate osteophytes can be seen at this level. Intact anterior fixation hardware can be seen at the C4-C5 level. There is moderate to severe disc space narrowing seen at C5-C6. Associated endplate irregularity and sclerosis. There is at least moderate disc space narrowing seen at C6-C7. There is minimal anterolisthesis seen at this level. At C7-T1, there is grade 1/2 anterolisthesis, with moderate to severe disc space narrowing. There is [id number] upper thoracic levoconvex scoliosis. Soft tissues: Prevertebral soft tissues are normal in thickness. No paravertebral hematomas. No apical pneumothoraces. IMPRESSION: Intact appearing C4-C5 anterior fixation hardware. Multiple levels of degenerative change are seen, which are progressed compared to the prior 2017 CT. At the C7-T1 level, there is grade 1/2 anterolisthesis, with moderate to severe disc space narrowing present. Dictated by: Shankar Lugo M.D. on 02/04/2024 at 12:09 Approved by: Shankar Lugo M.D. on 02/04/2024 at 12:14
== END ==
PROVIDERS: Family Provider Internal Medicine; PCP Physician Assistant; Referring Provider Physician Assistant Surgical; Visit Provider Physician Assistant Surgical
DX: M47.22 Other spondylosis with radiculopathy, cervical region (principal); M43.12 Spondylolisthesis, cervical region; Z98.1 Arthrodesis status; M41.9 Scoliosis, unspecified; E03.8 Other specified hypothyroidism; E06.3 Autoimmune thyroiditis
CPT/HCPCS: 36415; 72125; 84443

== ENCOUNTER → 2024-02-04 12:15 | Outpatient (CLI) | payer OTHER, MEDICAID, SELFPAY ==
[2024-02-04 14:55] LABS: Thyroid Stimulating Hormone 0.405 uIU/mL (0.47-4.68)
== END ==
LOC: LAB 12:16
PROVIDERS: Family Provider Internal Medicine; PCP Physician Assistant; Referring Provider Physician Assistant; Visit Provider Physician Assistant
DX: E03.8 Other specified hypothyroidism (principal); E06.3 Autoimmune thyroiditis
CPT/HCPCS: 36415; 84443

== ENCOUNTER → 2024-02-13 16:19 | Outpatient (CLI) | payer OTHER, MEDICAID, SELFPAY | PROVIDERS: Family Provider Internal Medicine; PCP Physician Assistant; Visit Provider Nurse Practitioner Family | DX: R10.9 Unspecified abdominal pain (principal) | CPT/HCPCS: 87077; 87086; 87186 ==

== ENCOUNTER → 2024-02-14 07:08 | Outpatient (CLI) | payer OTHER, MEDICAID, SELFPAY ==
--- NOTE | 2024-02-14 07:10 | DI.MRI.S_ITS ---
PROCEDURE: MR CERVICAL SPINE WO CON INDICATIONS: C7 RADICULOPATHY TECHNIQUE: Noncontrast sagittal T1 spin echo and T2 fast spin echo, sagittal STIR, foraminal oblique sagittal T2 fast spin echo, and axial gradient echo or T2 fast spin echo through the cervical spine. COMPARISON: [facility], MR, MR CERVICAL SPINE WO CON, 02/24/2020, 15:13. FINDINGS: Image quality: Excellent. Alignment and Curvature: There is grade I C7 on T1 anterolisthesis which appears similar in extent to the study dated February 24, 2020. There is increased degenerative disc disease at this level including new Schmorl's nodes, intervertebral disc space as before, patient is status post anterior fusion and discectomy at C4-5. Bone Marrow: Marrow demonstrates normal overall signal. Spinal Cord: Visualized spinal cord has normal size and signal. No cerebellar tonsillar herniation. Paraspinous Soft Tissues: No paravertebral masses. Prevertebral soft tissues are normal in thickness. C2-C3: Disc height and signal is preserved. No canal stenosis. No foraminal stenosis. C3-C4: Moderate disc desiccation and height loss. No canal stenosis. Mild right and moderate left foraminal stenosis. Findings are unchanged. C4-C5: Status post discectomy and anterior fusion. Moderate bilateral foraminal stenosis which is unchanged from the prior study. C5-C6: Moderate disc desiccation and height loss. Mild right and moderate left foraminal stenosis. Findings are unchanged. C6-C7: Moderate disc desiccation and height loss. Moderate right and severe left foraminal stenosis. Findings are unchanged. C7-T1: Normal appearance. IMPRESSION: 1. Increased degenerative disc disease at C7-T1 when compared with the study dated February 24, 2020. There is increased disc desiccation and height loss, increased Schmorl's nodes, and osteophytosis. 2. Unchanged multilevel foraminal stenosis mild to moderate in degree. Dictated by: Sara Best M.D. on 02/15/2024 at 10:18 Approved by: Sara Best M.D. on 02/15/2024 at 10:31
== END ==
LOC: MRI 07:09
PROVIDERS: Family Provider Internal Medicine; PCP Physician Assistant; Referring Provider Physician Assistant; Visit Provider Physician Assistant
DX: M47.22 Other spondylosis with radiculopathy, cervical region (principal); M50.13 Cervical disc disorder with radiculopathy, cervicothoracic region; M48.02 Spinal stenosis, cervical region; Z98.1 Arthrodesis status
CPT/HCPCS: 72141

== ENCOUNTER 2024-02-17 18:18 | Emergency (ER) | payer OTHER, MEDICAID, SELFPAY ==
[2024-02-17] VITALS (7 sets, daily range): BP systolic 109–126; BP diastolic 53–61; PULSE 46–61; RESP 16–18; TEMP 36.8; O2SAT 98–100; BMI 26.7
--- NOTE | 2024-02-17 18:34 | DI.US.S_ITS ---
PROCEDURE: US PERIPH VENOUS LOW EXTREM LT INDICATIONS: left lower leg swelling r/o DVT TECHNIQUE: Real-time imaging, as well as color and pulse Doppler interrogation, were performed of the lower extremity deep veins from the inguinal ligament to the popliteal fossa, with documentation of the visualized calf veins. COMPARISON: None. FINDINGS: The common femoral, femoral, popliteal, and the visualized calf veins are normally compressible, and free of intraluminal thrombus. Color and pulse Doppler demonstrate normal phasic intraluminal flow. There is normal augmentation response to distal compression maneuver. Greater saphenous vein segments are compressible. In the popliteal fossa, there is a small teardrop shaped thick-walled fluid collection measuring 1.8 x 0.9 x 3.2 cm most consistent with a Norton cyst. There is moderate subcutaneous edema seen. IMPRESSION: 1. No DVT in the left lower extremity. 2. Popliteal fossa cyst. Dictated by: Yaz Torres M.D. on 02/18/2024 at 0:04 Approved by: Yaz Torres M.D. on 02/18/2024 at 0:06
--- NOTE | 2024-02-17 19:03 | DI.RAD.S_ITS ---
PROCEDURE: XR CHEST 1V INDICATIONS: SOB TECHNIQUE: One view of the chest was acquired. COMPARISON: [facility], CR, XR CHEST 2V, 12/04/2023, 12:53. FINDINGS: Surgical changes and devices: Right reverse shoulder arthroplasty. Cervical spine fusion. Lungs and pleura: Moderate diffuse perihilar peribronchial thickening and interstitial thickening appears chronic. There is mild consolidation of bronchovascular markings in the right infrahilar region. No effusion or pneumothorax. Mediastinum: Mediastinal contours appear normal. Heart size is normal. Chronic moderate to large hiatal hernia. Bones and chest wall: No suspicious bony lesions. Overlying soft tissues appear unremarkable. IMPRESSION: Perihilar bilateral bronchial wall thickening with bronchovascular consolidation in the right infrahilar region. There may be an early airspace opacity here. Otherwise findings can be seen in mild chronic interstitial edema or interstitial pneumonitis. Clinical correlation recommended. Dictated by: Yaz Torres M.D. on 02/17/2024 at 20:12 Approved by: Yaz Torres M.D. on 02/17/2024 at 20:14
[2024-02-17 20:02] LABS: Add Manual Diff / Slide Review NO; Basophils Absolute Auto 0 /uL (0-100); Basophils Percent Auto 0.6 % (0-2); Eosinophils Absolute Auto 100 /uL (0-450); Eosinophils Percent Auto 2.4 % (2-4); Hematocrit 37.3 % (36-46); Hemoglobin 12.4 g/dL (12.0-16.0); Lymphocytes Absolute Auto 1200 /uL (1100-4500); Mean Corpuscular HGB Conc 33.2 % (30-36); Mean Corpuscular Hemoglobin 30.8 PG (26-34); Mean Corpuscular Volume 92.7 fL (80-100); Monocytes Absolute Auto 300 /uL (0-900); Monocytes Percent Auto 9.8 % (3-14); Neutrophils Absolute Auto 1600 /uL (1500-7000); Neutrophils Percent Auto 49.2 % (50-75); Platelet Count 179 X10^3/uL (150-400); Red Blood Cell Count 4.02 X10^6/uL (4.0-5.2); Red Cell Distribution Width 13.4 % (11.6-14.8); White Blood Cell Count 3.3 X10^3/uL (4.5-11.0)
[2024-02-17 20:04] LABS: Alanine Aminotransferase 19 IU/L (<35); Albumin 4.3 g/dL (3.5-5.0); Albumin Globulin Ratio 1.7 (1.0-2.8); Alkaline Phosphatase 91 U/L (38-126); Aspartate Aminotransferase 30 IU/L (14-36); BUN Creatinine Ratio 26.8 (6-22); Bilirubin Total 0.4 mg/dL (0.2-1.3); Blood Urea Nitrogen 15 mg/dL (7-17); Calcium 8.9 mg/dL (8.4-10.2); Carbon Dioxide 27 mmol/L (22-32); Chloride 106 mmol/L (98-107); Creatine Kinase 86 U/L (30-135); Estimated Glomerular Filt Rate > 60 mL/min (>60); Globulin 2.5 g/dL (1.7-4.1); Glucose 108 mg/dL (80-110); HEMOLYSIS < 15 (0-50); Lipase 17 U/L (23-300); Potassium 3.7 mmol/L (3.4-5.1); Sodium 139 mmol/L (137-145); Total Protein 6.8 g/dL (6.3-8.2)
[2024-02-17 20:16] LABS: NT-proBNP (BNP-Adult 18+) 455 pg/mL (<125); Troponin I < 0.012 ng/mL (0.01-0.034)
--- NOTE | 2024-02-18 00:13 | ED.EXTPRO ---
HPI - Extremity Problem General Chief complaint: Extremity Problem,Nontraumatic Stated complaint: Legs swelling, PCP says destiny Mishra Leg Time Seen by Provider: 02/17/24 19:03 Source: patient Mode of arrival: Ambulatory History of Present Illness HPI Narrative: Patient is a 73-year-old female who was sent to the emergency department by her primary doctor for evaluation of a potential DVT. She does have swelling in both of her lower extremities although the left leg is more than the right. She states this is actually been going on for several weeks now however there are times when it seems to be worse than others. She states at baseline the left leg is always larger than the right. She denies any chest pain but does have some shortness of breath with exertion. There was some redness to her legs. She is currently on antibiotics what she describes as Keflex for a urinary tract infection. She has a couple days left of this medication. She denies any fevers. No history of blood clots. States that her legs hurt when she stands and walks around. Related Data Home Medications Medication Instructions Recorded Confirmed carisoprodol 350 mg tablet 350 mg PO TID ##0 03/12/11 11/18/21 albuterol sulfate 90 mcg/actuation 90 mcg IH PRN PRN Wheezing ##0 05/14/17 11/18/21 breath activated powder inhaler (ProAir RespiClick) oxycodone 15 mg tablet 15 mg PO Q6HR PRN Pain (Scale 07/31/20 11/18/21 Score 7-10) clonazepam 2 mg tablet 2 mg PO TID 04/17/21 11/18/21 duloxetine 30 mg capsule,delayed 60 mg PO BEDTIME 04/17/21 11/18/21 release gabapentin 300 mg capsule 600 mg PO BEDTIME 04/17/21 11/18/21 hydroxychloroquine 200 mg tablet 400 mg PO QAM 04/17/21 11/18/21 leflunomide 20 mg tablet 20 mg PO BEDTIME 04/17/21 11/18/21 levothyroxine 137 mcg tablet 137 mcg PO QAM 04/17/21 11/18/21 potassium chloride 10 mEq 10 meq PO QAM 04/17/21 11/18/21 tablet,extended release secukinumab 150 mg/mL subcutaneous 150 mg SUBCUT QWEEK 04/17/21 11/18/21 pen injector (Cosentyx Pen) tizanidine 4 mg tablet 4 mg PO TID PRN Muscle Spasm 04/17/21 11/18/21 cholecalciferol (vitamin D3) 1,250 1,250 mcg PO QWEEK 04/18/21 11/18/21 mcg (50,000 unit) capsule morphine 30 mg tablet,extended 30 mg PO TID 04/18/21 11/18/21 release zolpidem 5 mg tablet 5 mg PO BEDTIME unsomnia 04/18/21 11/18/21 ascorbate calcium (vitamin C) 500 500 mg PO BID 09/10/21 11/18/21 mg tablet ascorbic acid (vitamin C) 1,000 mg 500 mg PO BID 09/10/21 11/18/21 tablet topiramate 100 mg tablet 100 mg PO DAILY PRN 11/18/21 11/18/21 Previous Rx's Medication Instructions Recorded calcitonin (salmon) 200 1 spray intranasal (ALT) DAILY 11/26/21 unit/actuation nasal spray SACRAL FRACTURE #3.7 mL cetirizine 10 mg tablet 10 mg PO DAILY PRN congestion #20 08/23/22 tabs fluticasone propionate 50 1 spray intranasal DAILY #16 grams 08/23/22 mcg/actuation nasal spray,suspension (Flonase Allergy Relief) fluticasone propionate 50 1 spray intranasal DAILY PRN 08/23/22 mcg/actuation nasal congestion #16 grams spray,suspension (Flonase Allergy Relief) nirmatrelvir 300 mg (150 mg See Rx Instructions PO .COMPLEX 08/23/22 x2)-ritonavir 100 mg tablet,dose #30 ea pack (Paxlovid) cephalexin 500 mg capsule 500 mg PO QID 5 days #20 caps 02/13/24 Allergies Allergy/AdvReac Type Severity Reaction Status Date / Time dexamethasone [DEXAMETHASONE] Allergy Severe blood clots Verified 02/17/24 18:33 aspirin Allergy Unknown Verified 02/17/24 18:33 cyclobenzaprine Allergy Unknown Verified 02/17/24 18:33 iodine Allergy Unknown Verified 02/17/24 18:33 pregabalin Allergy Unknown Verified 02/17/24 18:33 rofecoxib Allergy Unknown Verified 02/17/24 18:33 Review of Systems Review of Systems ROS Unobtainable: All systems reviewed & are unremarkable except as noted in HPI and below Patient History Medical History Frequent falls Lumbar stenosis with neurogenic claudication Gait instability Compression fracture of L1 lumbar vertebra T12 compression fracture Dextroscoliosis Back pain Generalized weakness Heart murmur Osteoporosis Psoriatic arthritis Surgical History H/O hand surgery H/O neck surgery History of ankle surgery History of appendectomy Status post cervical spinal fusion Social History Smoking Status: Never smoker Smoking Status: Never smoker alcohol intake frequency: 0-2 drinks per day Substance Use Type: does not use Exam Initial Vital Signs Initial Vital Signs: Vital Signs Temperature 98.2 F 02/17/24 18:27 Pulse Rate 61 02/17/24 18:27 Respiratory Rate 16 02/17/24 18:27 Blood Pressure 121/60 02/17/24 18:27 Pulse Oximetry 98 02/17/24 18:27 Oxygen Delivery Method Room Air 02/17/24 18:27 Const General: cooperative HENMT Head: normal to inspection and normocephalic Resp Effort & Inspection: normal respiratory effort Cardio Rate: regular rate Skin Other: Slight redness but no warmth to the left and right lower extremities Neuro Sensory Exam: no sensory deficits noted Extrem General: edema Other: Bilateral lower extremity edema with left being greater than right Course Orders Ordered: ED Orders 02/17/24 18:34 US periph venous low extrem lt Stat 02/17/24 19:03 XR chest 1V Stat 02/17/24 19:04 EKG-12 Lead Stat 02/17/24 19:40 Complete Blood Count AUTO DIFF Stat Comprehensive Metabolic Panel Stat Lipase Stat NT-proBNP (BNP-Adult 18+) Stat Troponin & CK Cardiac Panel Stat Vital Signs Vital signs: Vital Signs - 8 hr 02/17/24 20:36 02/17/24 21:00 02/17/24 21:00 Temperature Pulse Rate 56 L 46 L Respiratory Rate Blood Pressure 109/53 L Pulse Oximetry 100 100 Oxygen Delivery Method 02/17/24 21:30 02/17/24 21:30 02/17/24 22:00 Temperature Pulse Rate 48 L 51 L Respiratory Rate Blood Pressure 122/59 L Pulse Oximetry 100 100 Oxygen Delivery Method 02/17/24 22:01 02/17/24 22:01 02/17/24 22:30 Temperature Pulse Rate 47 L 47 L Respiratory Rate Blood Pressure 126/61 Pulse Oximetry 100 100 Oxygen Delivery Method 02/17/24 22:30 02/18/24 00:29 Temperature 97.6 F Pulse Rate 54 L Respiratory Rate 18 16 Blood Pressure 120/57 L 116/64 Pulse Oximetry 98 Oxygen Delivery Method Room Air MDM - Extremity (Nontraumatic) Lab Data 02/17/24 19:40 02/17/24 19:40 Labs: Lab Results 02/17/24 Range/Units 19:40 WBC 3.3 L (4.5-11.0) X10^3/uL RBC 4.02 (4.0-5.2) X10^6/uL Hgb 12.4 (12.0-16.0) g/dL Hct 37.3 (36-46) % MCV 92.7 (80-100) fL MCH 30.8 (26-34) PG MCHC 33.2 (30-36) % RDW 13.4 (11.6-14.8) % Plt Count 179 (150-400) X10^3/uL Neut % (Auto) 49.2 L (50-75) % Lymph % (Auto) 38.0 (25-40) % [place] % (Auto) 9.8 (3-14) % Eos % (Auto) 2.4 (2-4) % Baso % (Auto) 0.6 (0-2) % Neut # (Auto) 1600 (0393-0420) /uL Lymph # (Auto) 1200 (3146-8356) /uL [place] # (Auto) 300 (0-900) /uL Eos # (Auto) 100 (0-450) /uL Baso # (Auto) 0 (0-100) /uL Sodium 139 (137-145) mmol/L Potassium 3.7 (3.4-5.1) mmol/L Chloride 106 (98-107) mmol/L Carbon Dioxide 27 (22-32) mmol/L BUN 15 (7-17) mg/dL Creatinine 0.56 (0.52-1.04) mg/dL Estimated GFR > 60 (>60) mL/min BUN/Creatinine Ratio 26.8 H (6-22) Glucose 108 (80-110) mg/dL Calcium 8.9 (8.4-10.2) mg/dL Total Bilirubin 0.4 (0.2-1.3) mg/dL AST 30 (14-36) IU/L ALT 19 (<35) IU/L Alkaline Phosphatase 91 (38-126) U/L Total Creatine Kinase 86 (30-135) U/L Troponin I < 0.012 (0.01-0.034) ng/mL NT-Pro-B Natriuret Pep 455 H (<125) pg/mL Total Protein 6.8 (6.3-8.2) g/dL Albumin 4.3 (3.5-5.0) g/dL Globulin 2.5 (1.7-4.1) g/dL Albumin/Globulin Ratio 1.7 (1.0-2.8) Lipase 17 L (23-300) U/L Imaging Data Chest x-ray: Radiologist's Impression: PROCEDURE: XR CHEST 1V INDICATIONS: SOB TECHNIQUE: One view of the chest was acquired. COMPARISON: [facility], , XR CHEST 2V, 12/04/2023, 12:53. FINDINGS: Surgical changes and devices: Right reverse shoulder arthroplasty. Cervical spine fusion. Lungs and pleura: Moderate diffuse perihilar peribronchial thickening and interstitial thickening appears chronic. There is mild consolidation of bronchovascular markings in the right infrahilar region. No effusion or pneumothorax. Mediastinum: Mediastinal contours appear normal. Heart size is normal. Chronic moderate to large hiatal hernia. Bones and chest wall: No suspicious bony lesions. Overlying soft tissues appear unremarkable. IMPRESSION: Perihilar bilateral bronchial wall thickening with bronchovascular consolidation in the right infrahilar region. There may be an early airspace opacity here. Otherwise findings can be seen in mild chronic interstitial edema or interstitial pneumonitis. Clinical correlation recommended. US - DVT: Radiologist's Impression: PROCEDURE: US PERIPH VENOUS LOW EXTREM LT INDICATIONS: left lower leg swelling r/o DVT TECHNIQUE: Real-time imaging, as well as color and pulse Doppler interrogation, were performed of the lower extremity deep veins from the inguinal ligament to the popliteal fossa, with documentation of the visualized calf veins. COMPARISON: None. FINDINGS: The common femoral, femoral, popliteal, and the visualized calf veins are normally compressible, and free of intraluminal thrombus. Color and pulse Doppler demonstrate normal phasic intraluminal flow. There is normal augmentation response to distal compression maneuver. Greater saphenous vein segments are compressible. In the popliteal fossa, there is a small teardrop shaped thick-walled fluid collection measuring 1.8 x 0.9 x 3.2 cm most consistent with a Norton cyst. There is moderate subcutaneous edema seen. IMPRESSION: 1. No DVT in the left lower extremity. 2. Popliteal fossa cyst. ECG Data Interpretation: Sinus bradycardia Ventricular rate of 47 Left axis deviation Normal QRS No ST T wave changes MDM Narrative Medical decision making narrative: Patient is not clinically in heart failure. Her exam is not consistent with pneumonia or ACS. She has not hypoxic. Her DVT ultrasound is negative. Does have some redness to her lower extremities but it is equal bilateral and I have low suspicion that this is a cellulitis. Regardless she was on Keflex for urinary tract infection which would treat a cellulitis. She does have bilateral lower extremity edema with left being greater than right. She is on furosemide. States she takes 1 tablet a day. Plan will be to have her increase the furosemide to 2 tablets a day. She has an Cristhian bandage at home that she can use to wrap her lower extremity. We also talked about other things such as keeping her legs elevated. Will have her follow-up with her primary care doctor. She was given return precautions. She expressed understanding and agreement. Discharge Plan Departure Patient Disposition: Home Clinical Impression: Peripheral edema Instructions: DI for Peripheral Edema-Unilateral Activity Restrictions/Additional Instructions: I would recommend that you increase your Lasix/furosemide from 1 tablet a day to 2 tablets a day. You can also use the elastic bandage that you have at home to wrap her legs. Try to keep your legs elevated. Contact your primary doctor for follow-up. Return to the emergency department for new or worsening symptoms. Prescriptions: No Action cephalexin 500 mg capsule 500 mg PO QID 5 Days Qty: 20 0RF carisoprodol 350 MG tablet 350 mg PO TID Qty: 0 Patient Comments: Pt states she takes tid every day x 20 years. ProAir RespiClick 90 MCG aerosol powdr breath activated 90 mcg IH PRN PRN (Reason: Wheezing) Qty: 0 calcitonin (salmon) 200 unit/actuation spray,non-aerosol 1 spray intranasal (ALT) DAILY Qty: 3.7 1RF oxycodone 15 mg tablet 15 mg PO Q6HR PRN (Reason: Pain (Scale Score 7-10)) Paxlovid 300 mg (150 mg x 2)-100 mg tablets,dose pack See Rx Instructions .ROUTE .COMPLEX Qty: 30 0RF Rx Instructions: take TWO 150 mg tablets of nirmatrelvir with ONE 100 mg tablet of ritonavir twice daily for 5 days cetirizine 10 mg tablet 10 mg PO DAILY PRN (Reason: congestion) Qty: 20 0RF fluticasone propionate [Flonase Allergy Relief] 50 mcg/actuation spray,suspension 1 spray intranasal DAILY PRN (Reason: congestion) Qty: 16 0RF Rx Instructions: administer into each nostril fluticasone propionate [Flonase Allergy Relief] 50 mcg/actuation spray,suspension 1 spray intranasal DAILY Qty: 16 0RF Rx Instructions: administer into each nostril levothyroxine 137 mcg tablet 137 mcg PO QAM tizanidine 4 mg tablet 4 mg PO TID PRN (Reason: Muscle Spasm) potassium chloride 10 mEq tablet extended release 10 meq PO QAM leflunomide 20 mg tablet 20 mg PO BEDTIME Patient Comments: take 1 tablet by mouth once daily clonazepam 2 mg tablet 2 mg PO TID gabapentin 300 mg capsule 600 mg PO BEDTIME Patient Comments: take 2 capsules by mouth once daily hydroxychloroquine 200 mg tablet 400 mg PO QAM duloxetine 30 mg capsule,delayed release(DR/EC) 60 mg PO BEDTIME Cosentyx Pen 150 mg/mL pen injector 150 mg SUBCUT QWEEK Patient Comments: STARTER INJECT 150MG SUBCUTANEOUSLY WEEKLY FOR 5 WEEKS, THEN START MAINTENANCE DOSING EVERY 28 DAYS morphine 30 mg tablet extended release 30 mg PO TID zolpidem 5 mg Tablet 5 mg PO BEDTIME cholecalciferol (vitamin D3) 1,250 mcg (50,000 unit) Capsule 1,250 mcg PO QWEEK topiramate 100 mg tablet 100 mg PO DAILY PRN Patient Comments: take 1 tablet by mouth twice a day ascorbic acid (vitamin C) 1,000 mg tablet 500 mg PO BID ascorbate calcium (vitamin C) 500 mg tablet 500 mg PO BID Referrals: Ellie Blanton PA-C [Primary Care Provider] - Stand Alone Forms: Patient Portal/API
[2024-02-18 00:29] VITALS: BP 116/64; PULSE 54; RESP 16; TEMP 36.4; O2SAT 98
== END 2024-02-18 00:30 | disposition home or self-care (01) ==
PROVIDERS: Emergency Provider Emergency Medicine; Family Provider Internal Medicine; PCP Physician Assistant
DX: R60.0 Localized edema (principal); R00.2 Palpitations
CPT/HCPCS: 36415; 71045; 80053; 82550; 83690; 83880; 84484; 85025; 93005; 93971; 99283; 99284

== ENCOUNTER → 2024-03-18 12:37 | Outpatient (CLI) | payer OTHER, MEDICAID, SELFPAY ==
--- NOTE | 2024-03-18 12:41 | DI.CT.S_ITS ---
PROCEDURE: CT SHOULDER RIGHT WITHOUT CON INDICATIONS: Primary osteoarthritis, right shoulder TECHNIQUE: Noncontrast 0.75 mm thick sections acquired from the acromioclavicular joint to the inferior scapula, with coronal and sagittal reformatting. For radiation dose reduction, the following was used: automated exposure control, adjustment of mA and/or kV according to patient size. COMPARISON: [facility], CT, CT SHOULDER RIGHT WITHOUT CONTRAST, 01/26/2023, 12:29. [facility], CR, XR SHOULDER 2+ VIEWS RIGHT, 02/23/2024, 14:20. FINDINGS: Image quality: Excellent. Bones: Nondisplaced incomplete fracture is seen at the base of the scapular spine. Postsurgical changes are seen from reversed total shoulder arthroplasty. Hardware components are in stable positions without signs of loosening. Proximal humerus is intact. Clavicle is intact. Sclerotic signal along the right 7th rib may indicate bone infarct. Chronic healed lateral 5th rib fracture. Degenerative changes are seen in the included spine. Degenerative changes are seen in the acromioclavicular joint. Soft tissues: No significant shoulder effusion is seen. There is chronic fatty infiltration of the rotator cuff musculature. The remaining visualized muscles are normal in bulk. IMPRESSION: 1. Postsurgical changes again seen from right reverse total shoulder arthroplasty with hardware components stable positions. 2. Nondisplaced incomplete fracture at the base of the scapular spine. Approved by: Christian Doty M.D. on 03/18/2024 at 14:18
== END ==
LOC: CT 12:38
PROVIDERS: Family Provider Internal Medicine; PCP Physician Assistant; Referring Provider Orthopaedic Surgery; Visit Provider Orthopaedic Surgery
DX: S42.154A Nondisplaced fracture of neck of scapula, right shoulder, initial encounter for closed fracture (principal); M19.011 Primary osteoarthritis, right shoulder; I51.89 Other ill-defined heart diseases; Z96.611 Presence of right artificial shoulder joint
CPT/HCPCS: 36415; 73200; 80048

== ENCOUNTER → 2024-03-18 12:42 | Outpatient (CLI) | payer OTHER, MEDICAID, SELFPAY ==
[2024-03-18 15:07] LABS: BUN Creatinine Ratio 31.6 (6-22); Blood Urea Nitrogen 18 mg/dL (7-17); Calcium 9.2 mg/dL (8.4-10.2); Carbon Dioxide 26 mmol/L (22-32); Chloride 104 mmol/L (98-107); Estimated Glomerular Filt Rate > 60 mL/min (>60); Glucose 98 mg/dL (80-110); HEMOLYSIS < 15 (0-50); Potassium 3.8 mmol/L (3.4-5.1); Sodium 135 mmol/L (137-145)
== END ==
LOC: LAB 12:43
PROVIDERS: Family Provider Internal Medicine; PCP Physician Assistant; Referring Provider Nurse Practitioner Acute Care; Visit Provider Nurse Practitioner Acute Care
DX: I51.89 Other ill-defined heart diseases (principal)
CPT/HCPCS: 36415; 80048

== ENCOUNTER → 2024-05-25 10:28 | Outpatient (CLI) | payer OTHER, MEDICAID, SELFPAY ==
--- NOTE | 2024-05-25 | DI.RAD.S_ITS ---
PROCEDURE: FL BARIUM SWALLOW W SPEECH INDICATIONS: DYSPHAGIA COMPARISON: None. TECHNIQUE: Examination was conducted in conjunction with speech pathology per standard protocol. In the lateral projection, filming was performed of the patient swallowing. AP projection filming may also be performed with patient swallowing. COMPARISON: FINDINGS: Function: The oral preparatory phase appears normal, with proper containment. The subsequent oral propulsive phase, pharyngeal phase, and esophageal phase of swallowing also appear normal with all proffered substances. No laryngotracheal penetration or aspiration. No pathologic vallecular pooling. Morphology: No cricopharyngeal bar is identified. No cervical esophageal webs. No Zenker's diverticulum. No strictures. IMPRESSION: Unremarkable modified barium swallow examination. Please see separate report by speech pathologist for further details. Dictated by: Titus Martines M.D. on 05/25/2024 at 15:54 Approved by: Titus Martines M.D. on 05/25/2024 at 15:54
--- NOTE | 2024-05-25 14:45 | ST.SWALLOW ---
Visit Care Team Role Provider Type Ellie Blanton PA-C Primary Care Provider Non-Staff Specialty: Internal Medicine Address: [address], [place], [address] Email: Kimberly Helms MD Family Provider Non-Staff Specialty: Internal Medicine Address: [address] [place] [address], [id number] Email: [email or web address] Sean Quiñones MD Attending Provider Physician Referring Provider Specialty: Ear, Nose, Throat Address: [address] [place] [address], [id number] Email: [email or web address] Modified Barium Swallow Study REGULATORY MANAGER Modified Barium Swallow Study Start: 05/25/24 12:01 Freq: Status: Active Protocol: Document 05/25/24 12:01 GARETH (Rec: 05/25/24 12:43 LNK [id number]) Modified Barium Swallow Study Total Time Visit Start Time 11:00 Visit Stop Time 11:30 Total Visit Minutes [address] Sean Quiñones, ENT Reason for Referral dysphagia Setting Setting Outpatient Care Patient Information Identification Type Name,Date of Patient History Pt was seen for a Modified Barium Swallow Study secondary to difficulty swallowing with regurgitation of undigested foods. Pt also noted coughing and choking with regurgitation at times when eating. Pt has PMH of scoliosis, ACDF surgery , fibromyalgia, arthritis, hiatal hernia and GERD. On 05/11/2024, pt underwent EGD with dilation. Pt reported that she has a large hiatal hernia and will have that surgically repaired in the near future. Pt also reported that often she will be talking and lose her voice. She inquired as to why this occurs. She noted that when she saw Dr Quiñones that he did not examine her vocal folds. She was encouraged to return to Dr. Quiñones re: vocal dysphonia. Subjective Observations Pt was seated in the fluoroscopy chair with directions and procedures described for her. She indicated she understood and agreed to proceed. Patient Positioning Position View Lat-A/P Imaging Lateral View Textures Administered Trials Presented Thin Liquid via Spoon (IDDSI 0 ),Thin Liquid via Cup (IDDSI 0 ),Thin Liquid via Straw (IDDSI 0),Mildly Thick Liquid via Spoon (IDDSI 2),Extremely Thick Liquid via Spoon (IDDSI 4),Minced & Moist (IDDSI 5) Barium Tablet Yes The IDDSI Framework Protocol: IDDSI.1 Oral Impairment Source: The Modified Barium Swallow Impairment Profile (MBSImP??) Lip Closure Interlabial escape; no progression to anterior lip Tongue Control During Bolus Hold Cohesive bolus between tongue to palatal seal Bolus Transport/Lingual Motion Brisk tongue motion Oral Residue Residue collection on oral structures Location Tongue Initiation of Pharyngeal Swallow Bolus head at pyriforms Additional Oral Impairment Observations Pt is edentulous. She stated that she eats a minced and moist diet as she cannot masticate more advanced diet textures. No advanced textures trialed. Facial, labial, lingual and velar structures were observed to be WFL Pharyngeal Impairment Source: The Modified Barium Swallow Impairment Profile (MBSImP??) Soft Palate Elevation No bolus between soft palate & pharyngeal wall Laryngeal Elevation Part.sup.move.thyroid cart/ part.approx.arytenoids to epiglot.petiole Anterior Hyoid Excursion Partial anterior movement Epiglottic Movement Complete inversion Laryngeal Vestibular Closure Complete; no air/contrast in laryngeal vestibule Pharyngeal Stripping Wave Present - complete Pharyngoesophageal Segment Opening Complete distention & complete duration; no obstruction of flow Tongue Base Retraction Trace column of contrast/air betwn tongue base & post. pharyngeal wall Pharyngeal Residue Trace residue within/on pharyngeal structures Location Valleculae Additional Pharyngeal Impairment Pharyngeal phase of swallow Observations appeared to be WFL. No laryngeal penetration or tracheal aspiration observed. A/P View Textures Administered Trials Presented Thin Liquid via Cup (IDDSI 0) The IDDSI Framework Protocol: IDDSI.1 A/P View Observations Pharyngeal Contraction Complete Esophageal Clearance Upright Position Complete clearance; esophageal coating Esophageal Function WFL Additional A-P Observations Thin liquid barium and barium tablet cleared the pt's esophagus in a timely manner Clinical Impressions Dysphagia Type WNL Findings Pt presented with swallowing WNL. All trials cleared oral, pharyngeal and esophageal phases in timely manner. Pt did not want to trial advanced textures. No changes in pt's diet; diet advance as tolerated by pt. Patient Appropriate for Therapy No Recommendations Aspiration Precautions Recommended Precautions Upright at 90 Degrees, Alternate Liquids/Solids, Frequent Rest Periods,Small Bites/Sips Treatment Plan Recommended Referrals ENT Consult Additional Recommended Referrals PCP/GI consult as indicated Return to ENT re: vocal dysphonia
== END ==
PROVIDERS: Family Provider Internal Medicine; PCP Physician Assistant; Referring Provider Otolaryngology; Visit Provider Otolaryngology
DX: R13.10 Dysphagia, unspecified (principal)
CPT/HCPCS: 74230; 92611

== ENCOUNTER → 2024-06-27 11:19 | Outpatient (CLI) | payer OTHER, MEDICAID, SELFPAY ==
--- NOTE | 2024-06-27 | DI.ECHO.S_ITS ---
[facility] +---------+ Hospital : : [address] : : [place] : : [id number] : : Phone: [phone] Echocardiogram Report + + :Name: ALY NICHOLS Study Date: 06/27/2024 Height: 60 in : :Hospital ReadingLocation: Weight: 130 lb : : Gender: Female BSA: 1.6 m2 : :: 1950 Age: 73 yrs BP: 126/71 mmHg: :Reason For Study: DIASTOLIC DYSFUNCTION, ASSESS EF : :Ordering Physician: AICHA, : :LENO Performed By: Vandana Reeves : :Referring: LENO HOLCOMB : + + Interpretation Summary A two-dimensional transthoracic echocardiogram with color flow and Doppler was performed in limited views only. The ejection fraction is estimated to be 60-65%. The left atrium is moderately dilated. Grade II diastolic dysfunction. Procedure: A two-dimensional transthoracic echocardiogram with color flow and Doppler was performed in limited views only. The study quality was technically adequate. Comparison is made with the echocardiogram of 01/01/2024. The patient was in sinus bradycardia with heart rates between 46- 52 bpm during the exam. Left Ventricle: The left ventricle is normal in size and wall thickness. The ejection fraction is estimated to be 60-65%. There are no obvious focal wall motion abnormalities noted but poor endocardial definition reduces the sensitivity for the detection of such. Grade II diastolic dysfunction. Atria: The left atrium is moderately dilated. Aortic Valve: There is mild aortic regurgitation. Tricuspid Valve: There is mild tricuspid regurgitation. Pericardium/ Pleura There is no pericardial effusion. There is no pleural effusion. MMode/2D Measurements & Calculations LVIDd: 4.9 cm LA A2 area: 20.7 cm2 LVIDs: 3.2 cm LA A4 area: 21.9 cm2 FS: 33.3 % LA length (vol): 5.5 cm EPSS: 0.37 cm LA vol: 70.3 ml IVSd: 0.81 cm LA vol index: 45.2 ml/m2 LVPWd: 0.74 cm LV cortés. diameter/BSA (cm/m^2): 3.1 LV sys. diameter/BSA (cm/m^2): 2.1 Doppler Measurements & Calculations MV E max sina: 92.4 cm/sec TR max sina: 221.9 cm/sec MV A max sina: 59.5 cm/sec TR max P.7 mmHg MV E/A: 1.6 Med Peak E' Sina: 6.1 cm/sec E/E' med: 15.3 Lat Peak E' Sina: 7.0 cm/sec E/E' lat: 13.2 E/e' average: 14.2 MV dec time: 0.18 sec Reading Physician:RICH
== END ==
PROVIDERS: Family Provider Internal Medicine; PCP Physician Assistant; Referring Provider Nurse Practitioner Acute Care; Visit Provider Nurse Practitioner Acute Care
DX: I08.2 Rheumatic disorders of both aortic and tricuspid valves
CPT/HCPCS: 93307

== ENCOUNTER → 2024-08-11 09:13 | Outpatient (CLI) | payer OTHER, MEDICAID, SELFPAY ==
--- NOTE | 2024-08-11 09:14 | DI.CT.S_ITS ---
PROCEDURE: CT WRIST LEFT WITH CON INDICATIONS: LEFT WRIST PAIN TECHNIQUE: Noncontrast 1 mm axial sections acquired through the carpal bones, with coronal and sagittal reformats. COMPARISON: Outside Film, CR, XR HAND 1 OR 2 VIEWS LEFT, 07/28/2024, 11:48. Outside Film, CR, XR WRIST 1 OR 2 VIEWS LEFT, 07/28/2024, 11:52. FINDINGS: Image quality: Excellent. Bones: There is significant volar subluxation at radiocarpal joint. Severe osteoarthritic changes are noted in radiocarpal and ulnar carpal joints. Moderate osteoarthritic changes are noted in rest of the wrist joints. Significant lateral subluxation at 1st CMC joint is also seen. Multiple bony fragments are noted adjacent to the radiocarpal joint including a 0.4 x 0.7 cm fragment over dorsal aspect of capitate and similar-sized cortical defect involving volar aspect of the proximal capitate suggestive of displaced capitate fracture of indeterminate age series 5 image 59. Acute to subacute appearing nondisplaced fracture is noted involving ulnar styloid tip series 4, image 48. Extensive subcortical cystic changes are noted throughout carpal bones and metacarpal basis. No other fracture or dislocation is seen. Soft tissues: There is no significant joint effusion or calcified intra-articular loose bodies. No gross full-thickness extensor or flexor tendon ruptures. Significant dorsal soft tissue swelling over the carpal bones is seen. There is suggestion of fluid distension of tendon sheath of 2nd through 4th extensor compartments concerning for moderate grade tenosynovitis. IMPRESSION: 1. 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 Significant volar subluxation of proximal carpal row in relation to distal radius and ulna. Age indeterminate fractures are noted involving capitate and ulnar styloid. Extensive subcortical cystic changes are noted throughout carpal bones, distal radius and metacarpal bases. No definite other fracture or dislocation is seen. 2. Soft tissue swelling around wrist joint particularly over dorsal aspect of carpal bones. No definite calcified intra-articular loose bodies or significant joint effusion. 3. Suggestion of tenosynovitis involving extensor tendons over dorsal aspect of carpal bones. No gross full-thickness tendon rupture. Dictated by: Buster Grider M.D. on 08/12/2024 at 23:43 Approved by: Buster Grider M.D. on 08/12/2024 at 23:59
== END ==
PROVIDERS: Family Provider Internal Medicine; PCP Physician Assistant; Referring Provider Physician Assistant Surgical; Visit Provider Physician Assistant Surgical
DX: S62.132A Displaced fracture of capitate [os magnum] bone, left wrist, initial encounter for closed fracture (principal); S52.612A Displaced fracture of left ulna styloid process, initial encounter for closed fracture; S63.002A Unspecified subluxation of left wrist and hand, initial encounter; M19.032 Primary osteoarthritis, left wrist; R60.0 Localized edema; M25.532 Pain in left wrist
CPT/HCPCS: 73201; Q9967